=== PATIENT | male | born 1960 | race Caucasian/White ===

== ENCOUNTER 2019-08-13 00:13 | Day surgery (SDC) | payer OTHER, SELFPAY ==
[2019-08-03 12:55] VITALS: BMI 46.0
--- NOTE | 2019-08-10 07:38 | PM.HPGS ---
History of Present Illness History of Present Illness Consent: Risks, benefits, and alternatives have been discussed and questions answered. Patient agrees to proceed with procedure. Chief complaint: Stricture Vulva Urethra Narrative: Moises Elizabeth is a 58 year old male with a long history of recurrent bulbous urethral stricture recently presented with moderate obstructive voiding symptoms. He denies fever/chills, gross hematuria or recurrent UTI. Review of Systems Constitutional: Constitutional: Denies chills, Denies fatigue, Denies fever(s) and Denies headache(s) Eyes: Eyes: Denies blurry vision ENT: Denies vertigo, Denies dizziness, Denies headache(s) and Denies sore throat Cardiovascular: Cardiovascular: Denies chest pain, Denies syncope, Denies lightheadedness, Denies palpitations, Denies dyspnea and Denies dyspnea on exertion Respiratory: Respiratory: Denies hemoptysis, Denies dyspnea and Denies dyspnea on exertion Gastrointestinal: Gastrointestinal: Denies melena, Denies bloating, Denies hematochezia, Denies change in bowel habits, Denies change in stool character, Denies constipation, Denies diarrhea and Denies vomiting Genitourinary: Genitourinary: Denies hematuria, Denies dysuria, Denies testicular pain, Denies urinary frequency, Denies urinary hesitancy and Denies urinary urgency Integumentary/Breasts: Skin/Breast: Denies pruritus, Denies lesions and Denies rash Neurologic: Denies confusion, Denies vertigo, Denies dizziness, Denies syncope and Denies headache(s) Psychiatric: Psychiatric: Denies anxiety, Denies change in appetite and Denies confusion Endocrine: Endocrine: Denies fatigue and Denies palpitations Meds Home Medications and Allergies Home Medications Medication Instructions Recorded Confirmed Type allopurinol 300 mg PO DAILY 08/03/19 08/03/19 History anastrozole 1 mg PO DAILY 08/03/19 08/03/19 History aspirin 81 mg PO DAILY 08/03/19 08/03/19 History atenolol 50 mg PO DAILY 08/03/19 08/03/19 History calcium carbonate [Calcium 600] 600 mg PO DAILY 08/03/19 08/03/19 History felodipine 10 mg PO DAILY 08/03/19 08/03/19 History finasteride 1 mg PO DAILY 08/03/19 08/03/19 History fluticasone propionate 1 spray INTRANASAL DIRECTED PRN 08/03/19 08/03/19 History hydrocodone-acetaminophen 1 tablet PO Q6H PRN 08/03/19 08/03/19 History lidocaine 1 patch TRANSDERMAL DIRECTED PRN 08/03/19 08/03/19 History metronidazole 1 applic TOPICAL Q48H 08/03/19 08/03/19 History pregabalin [Lyrica] 100 mg PO TID 08/03/19 08/03/19 History simvastatin 20 mg PO DAILY 08/03/19 08/03/19 History tamsulosin 0.4 mg PO HS 08/03/19 08/03/19 History testosterone cypionate 150 mg IM WEEKLY 08/03/19 08/03/19 History Allergies Allergy/AdvReac Type Severity Reaction Status Date / Time No Known Allergies Allergy Unverified 08/03/19 12:56 Exam Const: General: healthy appearing, comfortable, no acute distress and well developed; No confusion Nutritional Appearance: well nourished Orientation/consciousness: patient oriented x3 and No confusion HENMT: Head: normocephalic and atraumatic Ears: external ears normal Face and sinus: normal facial exam Mouth: Yes lip normal Teeth and gingiva: dentition normal Eyes: General: appearance normal, both eyes and all related structures Alignment and Position: alignment normal Eyelids: eyelids normal Cornea: corneas normal Pupils: Equal, round and reactive pupils present EOM: EOMs intact bilaterally Neck: Neck: normal visual inspection, full ROM and no JVD Chest: Chest palpation & inspection: normal inspection of the chest Resp: Effort & Inspection: normal respiratory effort and no use of accessory muscles Auscultation: clear to auscultation bilaterally Cardio: Jugular venous distension: no JVD Rate: regular rate Rhythm: regular rhythm GI: Inspection: normal to inspection GI Palp: No abdominal tenderness, No Guarding due to palpation present (GI) and No Rebound tenderness pre
--- NOTE | 2019-08-13 06:49 | WPDHPUPDATE1 ---
History and Physical Update Update Date/Time: 08/13/19 06:49 History and Physical has been reviewed, including an updated exam of the patient. There are NO changes in the patient's condition. Risks, benefits, and alternatives have been discussed and questions answered. Patient agrees to proceed with procedure.
[2019-08-13 13:00] VITALS: BP 162/89; PULSE 57; RESP 20; TEMP 36.4; O2SAT 100
[2019-08-13] MEDS: LACTATED RINGERS 1,000 ML 30 ML IV CONT (13:00)
--- NOTE | 2019-08-13 13:14 | WPDANESEPPF ---
Anes - Initial Pre Proc Eval Procedure: Operation Date: 08/13/19 14:15 Proposed Procedures p Cystoscopy, Urethral Dilatation - Bill Garcia MD Date/Time: 08/13/19 13:14 Surgeon: Bill Garcia MD Pre Op Diagnosis: Stricture Vulva Urethra Patient Data Age: 58 Gender: M Height: 5 ft 11 in Weight: 149.69 kg Allergies Allergy/AdvReac Type Severity Reaction Status Date / Time No Known Allergies Allergy Unverified 08/03/19 12:56 Home Medications Medication Instructions Recorded Confirmed Type allopurinol 300 mg PO DAILY 08/03/19 08/13/19 History anastrozole 1 mg PO [id number] 08/03/19 08/13/19 History aspirin 81 mg PO DAILY 08/03/19 08/13/19 History atenolol 50 mg PO DAILY 08/03/19 08/13/19 History calcium carbonate [Calcium 600] 600 mg PO DAILY 08/03/19 08/13/19 History felodipine 10 mg PO DAILY 08/03/19 08/13/19 History finasteride 1 mg PO DAILY 08/03/19 08/13/19 History fluticasone propionate 1 spray INTRANASAL DIRECTED PRN 08/03/19 08/13/19 History hydrocodone-acetaminophen 1 tablet PO Q6H PRN 08/03/19 08/13/19 History lidocaine 1 patch TRANSDERMAL DIRECTED PRN 08/03/19 08/13/19 History metronidazole 1 applic TOPICAL Q48H 08/03/19 08/13/19 History pregabalin [Lyrica] 100 mg PO TID 08/03/19 08/13/19 History simvastatin 20 mg PO DAILY 08/03/19 08/13/19 History tamsulosin 0.4 mg PO HS 08/03/19 08/13/19 History testosterone cypionate 150 mg IM WEEKLY 08/03/19 08/13/19 History Patient hx anesthesia problems: none Family hx anesthesia problems: none PMFSH Past Medical History Medical History Hyperlipidemia Hypertension Morbid obesity Neurofibromatosis, type 1 CINDY (obstructive sleep apnea) Anes - Eval Final PreProcedure Day of Procedure 08/13/19 13:14 Patient weight: morbidly obese Heart: regular rate and rhythm Lungs: clear to auscultation Airway: Mallampati scale class II Last oral intake: >/= 8 hours ASA classification: III Emergent: no Anesthetic plan: proceed Anesthesia type and monitoring: general GIVS and standard monitoring Informed Consent: The patient's anesthetic plan and its attendant risks and benefits were discussed with the patient/family/POA. Questions were solicited and answers provided to the satisfaction of the patient/family/POA.
[2019-08-13] MEDS: ceFAZolin 3 GM/D5W 100 ML 100 ML IVPB (13:57)
[2019-08-13] MEDS: LIDOCAINE HCL 2% GEL UROJET 10 ML PKG MUCOUS MEM (14:02)
[2019-08-13 14:30] VITALS: BP 129/79; PULSE 55; RESP 16; O2SAT 99
--- NOTE | 2019-08-13 14:46 | PM.PROC ---
Procedure Note - Detailed Date of procedure: 08/13/19 Pre-op diagnosis: Stricture Vulva Urethra Post-op diagnosis: same Procedure performed: Cystoscpy with urethral dilatation Description of procedure: The patient was brought to the operative suite where he was prepped and draped in a routine sterile fashion while in a dorsal lithotomy position after the uneventful induction of a general LMA anesthetic. Cystoscopy was undertaken with a 16F flexible cystoscope. There were no urethral strictures. The prostatic urethral estimated length was 1.5cm. There was mild obstruction of the prostatic urethra with no median lobe enlargement. The bladder itself was endoscopically normal without foreign body or neoplasm. The bladder mucosa was without hyperemia. There was a single orthotopic ureteral orifice bilaterally with clear efflux of urine. Using the disposable filliforms and followers I dilated the urethra and bladder neck from 14 -> 24 F. The bladder was emptied and the patient was taken to the recovery room in good condition, dilatation urethral stricture. Anesthesia: MAC Surgeon: Bill Garcia MD Estimated blood loss (mL): 0 Drains: No Packing: No Pathology: yes Complications: No immediate complications Condition: stable Disposition: PACU
[2019-08-13 15:00] VITALS: BP 126/77; PULSE 56; RESP 20
== END 2019-08-13 15:29 | disposition home or self-care (01) ==
PROVIDERS: PCP Internal Medicine; Visit Provider Urology
PROC: 0T7D8ZZ Dilation of Urethra, Via Natural or Artificial Opening Endoscopic (ICD-10-PCS; CPT 52281; principal; 2019-08-13 14:15)
DX: N35.816 Other urethral stricture, male, overlapping sites (principal); I10 Essential (primary) hypertension; E78.5 Hyperlipidemia, unspecified; Q85.01 Neurofibromatosis, type 1; G47.33 Obstructive sleep apnea (adult) (pediatric); Z79.82 Long term (current) use of aspirin; E66.01 Morbid (severe) obesity due to excess calories; Z68.42 Body mass index [BMI] 45.0-49.9, adult
CPT/HCPCS: 52281; A9270; J0690; J2250; J2704; J3010; J7120

== ENCOUNTER 2020-04-05 00:16 | Outpatient (CLI) | payer OTHER, SELFPAY ==
[2020-04-05 19:00] LABS: SARS-CoV-2 RNA PCR Negative
== END 2020-04-05 00:17 | disposition home or self-care (01) ==
LOC: ANHCOVIDDT 00:17
PROVIDERS: PCP Internal Medicine; Visit Provider Urology
DX: Z01.812 Encounter for preprocedural laboratory examination (principal); Z20.828 Contact with and (suspected) exposure to other viral communicable diseases
CPT/HCPCS: 87635; C9803; U0003

== ENCOUNTER 2020-04-07 00:48 | Day surgery (SDC) | payer OTHER, SELFPAY ==
[2020-03-29 09:40] VITALS: BMI 50.2
[2020-04-07 06:18] VITALS: BP 138/69; PULSE 65; RESP 18; TEMP 36.4; O2SAT 97
[2020-04-07] MEDS: LACTATED RINGERS 1,000 ML 30 ML IV CONT ×2 (06:38→07:53)
--- NOTE | 2020-04-07 06:54 | WPDANESEPPF ---
Anes - Initial Pre Proc Eval Procedure: Operation Date: 04/07/20 07:30 Proposed Procedures p Cystoscopy, Urethral Dilatation, Possible Optical Internal Urethrotomy - Bill Garcia MD Date/Time: 04/07/20 06:54 Surgeon: Bill Garcia MD Pre Op Diagnosis: bulbous stricture Patient Data Age: 59 Gender: M Height: 1.8 m Weight: 162 kg Last Vital Signs Temp 36.4 C 04/07/20 06:18 Pulse 65 04/07/20 06:18 Resp 18 04/07/20 06:18 BP 138/69 04/07/20 06:18 Pulse Ox 97 04/07/20 06:18 Allergies Allergy/AdvReac Type Severity Reaction Status Date / Time No Known Allergies Allergy Verified 04/07/20 06:17 Home Medications Medication Instructions Recorded Confirmed Type allopurinol 300 mg PO DAILY 08/03/19 04/07/20 History anastrozole 1 mg PO [id number] 08/03/19 04/07/20 History aspirin 81 mg PO DAILY 08/03/19 04/07/20 History atenolol 50 mg PO DAILY 08/03/19 04/07/20 History calcium carbonate [Calcium 600] 600 mg PO DAILY 08/03/19 04/07/20 History felodipine 10 mg PO DAILY 08/03/19 04/07/20 History finasteride 1 mg PO DAILY 08/03/19 04/07/20 History fluticasone propionate 1 spray INTRANASAL DIRECTED PRN 08/03/19 03/29/20 History hydrocodone-acetaminophen 1 tablet PO Q6H PRN 08/03/19 04/07/20 History lidocaine 1 patch TRANSDERMAL DIRECTED PRN 08/03/19 03/29/20 History pregabalin [Lyrica] 200 mg PO BID 08/03/19 04/07/20 History simvastatin 20 mg PO DAILY 08/03/19 04/07/20 History tamsulosin 0.4 mg PO HS 08/03/19 04/07/20 History testosterone cypionate 150 mg IM WEEKLY 08/03/19 04/07/20 History amitriptyline 10 mg PO HS 04/07/20 04/07/20 History Patient hx anesthesia problems: none Family hx anesthesia problems: none PMFSH Past Medical History Medical History Hyperlipidemia Hypertension Morbid obesity Neurofibromatosis, type 1 CINDY (obstructive sleep apnea) Social History Social History Smoking status: Never smoker Spiritual care concerns: No Anes - Eval Final PreProcedure Day of Procedure 04/07/20 06:54 Patient weight: morbidly obese Heart: regular rate and rhythm Lungs: clear to auscultation and normal air movement Airway: Mallampati scale class III Neurological: alert and oriented Last oral intake: >/= 8 hours ASA classification: III Emergent: no Anesthetic plan: proceed Anesthesia type and monitoring: general LMA and standard monitoring Informed Consent: The patient's anesthetic plan and its attendant risks and benefits were discussed with the patient/family/POA. Questions were solicited and answers provided to the satisfaction of the patient/family/POA.
--- NOTE | 2020-04-07 06:54 | WPDHPUPDATE1 ---
History and Physical Update Update Date/Time: 04/07/20 06:54 History and Physical has been reviewed, including an updated exam of the patient. There are NO changes in the patient's condition. Risks, benefits, and alternatives have been discussed and questions answered. Patient agrees to proceed with procedure.
[2020-04-07] MEDS: ceFAZolin 3 GM/D5W 100 ML 100 ML IVPB (07:27)
[2020-04-07] MEDS: LIDOCAINE HCL 2% GEL UROJET 10 ML PKG MUCOUS MEM (07:46)
--- NOTE | 2020-04-07 07:47 | PM.PROC ---
Procedure Note - Detailed Date of procedure: 04/07/20 Pre-op diagnosis: bulbous stricture Post-op diagnosis: same Procedure performed: Optical internal urethrotomy Description of procedure: The patient was brought to the operative suite where he was prepped and draped in a routine sterile fashion while in a dorsal lithotomy position after the uneventful administration of systemic sedation by the anesthesia department. 2% Lidocaine was placed in the uretha and allowed to stand for an appropriate period of time. Cystoscopy was undertaken with a 19F rigid cystoscope. He has a moderately constricting stricture of the [fossa navicularis/penile urethra/bulbous urethra/bladder neck]. The bladder itself was endoscopically normal without foreign body or neoplasm. The bladder mucosa was without hyperemia. There was a single orthotopic ureteral orifice bilaterally with clear reflex of urine. Using the optical urethratome, I incised the strictured urethra at the 12 o'clock position care taken to avoid injury to the membranous urethra. An 18F Ruiz catheter was placed, the bladder was emptied and the patient was taken to the recovery room in good condition. Anesthesia: GLMA Surgeon: Bill Garcia MD Estimated blood loss (mL): 0 Drains: Yes (18F Ruiz) Packing: No Pathology: none sent Complications: No immediate complications Condition: stable Disposition: PACU
[2020-04-07 07:53] VITALS: BP 139/81; PULSE 56; RESP 15; TEMP 36.3; O2SAT 93
[2020-04-07 08:09] VITALS: BP 133/83; PULSE 55; RESP 20; O2SAT 97
[2020-04-07 08:20] VITALS: BP 144/80; PULSE 61; RESP 18; O2SAT 93
--- NOTE | 2020-04-07 08:20 | SUR.PHASEI ---
REPORT GIVEN TO LORENZA DOMINGUZE RN
[2020-04-07 08:27] VITALS: BP 135/77; PULSE 57; RESP 18
[2020-04-07 08:55] VITALS: BP 131/84; PULSE 52; RESP 18
== END 2020-04-07 09:15 | disposition home or self-care (01) ==
PROVIDERS: PCP Internal Medicine; Visit Provider Urology
PROC: 0T7D8ZZ Dilation of Urethra, Via Natural or Artificial Opening Endoscopic (ICD-10-PCS; CPT 52281; principal; 2020-04-07 07:30)
DX: N35.912 Unspecified bulbous urethral stricture, male (principal); I10 Essential (primary) hypertension; E78.5 Hyperlipidemia, unspecified; G47.33 Obstructive sleep apnea (adult) (pediatric); Q85.01 Neurofibromatosis, type 1; Z79.82 Long term (current) use of aspirin; E66.01 Morbid (severe) obesity due to excess calories; Z68.42 Body mass index [BMI] 45.0-49.9, adult
CPT/HCPCS: 52276; A9270; J0690; J1100; J2250; J2405; J2704; J7120

== ENCOUNTER → 2022-02-21 07:52 | Outpatient (CLI) | payer OTHER, SELFPAY ==
--- NOTE | ~2022-02-21 | XR_ITS ---
XR knee LT 2V DATE: 02/21/2022 08:39 INDICATION: Left knee pain TECHNIQUE: Standing AP and lateral views COMPARISON: None FINDINGS: There is severe joint space narrowing and some periarticular spurring of the medial compart ment. There is joint space narrowing and severe hypertrophic spurring at the patellofemoral joint. Mild periarticular spurring at the lateral compartment. There is enthesopathy of the patella at the insertions of the quadriceps and patellar tendons. No fracture or dislocation or significant joint effusion is evident. No radiopaque intra-articular lo ose body or, calcinosis. No periosteal reaction or bone destruction. 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 IMPRESSION: Tricompartment osteoarthritis, severe at the patellofemoral and med ial compartments
--- NOTE | ~2022-02-21 | XR_ITS ---
XR knee RT 2V DATE: 02/21/2022 08:39 INDICATION: Right knee pain TECHNIQUE: Standing AP and lateral views COMPARISON: None FINDINGS: There is prominent enthesopathy of the superior pole of patella at the quadriceps tendon in sertion. There is severe joint space narrowing in particular spurring at the medial compartment, mild periarti cular spurring at the lateral compartment and prominent joint space narrowing and hypertrophic spurri ng at the patellofemoral compartment. No fracture or dislocation or joint effusion, periosteal reaction or bone destruction. No radiopaque intra-articular loose body or chondrocalcinosis. IMPRESSION: Tricompartment osteoarthritis, particularly severe at the medial and patellofemoral radha rtments Reviewed, dictated and finalized at location B. IMPRESSION: Tricompartment osteoarthritis, particularly severe at the medial an d patellofemoral compartments
== END ==
PROVIDERS: PCP Internal Medicine; Visit Provider Nurse Practitioner Family
DX: M17.0 Bilateral primary osteoarthritis of knee (principal)
CPT/HCPCS: 73560

== ENCOUNTER → 2023-02-13 07:21 | Outpatient (CLI) | payer OTHER, SELFPAY ==
--- NOTE | ~2023-02-13 | MR_ITS ---
EXAMINATION: MR brain/brain stem wo con DATE: 02/13/2023 07:55 INDICATION: Ataxia. TECHNIQUE: Magnetic resonance imaging (MRI) of the brain and brainstem was performed without intraven ous contrast. COMPARISON: None. FINDINGS: There is no intracranial hemorrhage, acute infarction, or abnormal intracranial mass lesion . The ventricles are normal in size. The orbits are normal. The paranasal sinuses are clear. The mast oid air cells are normal. IMPRESSION: 1. Normal brain. Reviewed, dictated and finalized at location A. IMPRESSION: 1. Normal brain.
== END ==
PROVIDERS: PCP Internal Medicine; Visit Provider Chiropractor
DX: R26.0 Ataxic gait (principal)
CPT/HCPCS: 70551

== ENCOUNTER 2023-05-15 15:02 | Outpatient (CLI) | payer OTHER, SELFPAY ==
--- NOTE | 2023-05-15 15:13 | ECG_ITS ---
Measurements Intervals [place] Rate: 56 P: 15 DC: 143 QRS: -4 QRSD: 109 T: 35 QT: 414 QTc: 402 Interpretive Statements SINUS BRADYCARDIA DELAYED PRECORDIAL R/S TRANSITION CONSIDER INFERIOR INFARCT, AGE INDETERMINATE ABNORMAL ECG NO PREVIOUS ECG AVAILABLE FOR COMPARISON Electronically Signed On 05-15-2023 20:07:41 [employer] by Zeus Cantor D.O.
== END 2023-05-15 15:03 | disposition home or self-care (01) ==
LOC: ANHSURGERY 15:08
PROVIDERS: PCP Internal Medicine; Visit Provider Urology
DX: I10 Essential (primary) hypertension (principal); Z01.818 Encounter for other preprocedural examination; R94.31 Abnormal electrocardiogram [ECG] [EKG]
CPT/HCPCS: 93005

== ENCOUNTER 2023-05-23 01:47 | Day surgery (SDC) | payer OTHER, SELFPAY ==
[2023-05-14 09:38] VITALS: BMI 44.6
--- NOTE | 2023-05-14 09:43 | PC.NURSE ---
Report to the Outpatient Waiting Room, entrance under the green pavilion located off [facility], at time 6:00 on date 05/23/23. Planned Procedure Time: 7:30. Time changes happen often and if your time is changed the preop area will call you the afternoon before. - You and your visitor will be asked to self-screen and do not enter if you have any COVID symptoms. - A mask is optional within the hospital at this time. Patients may have clear liquids (water, carbonated beverages, clear teas, apple juice) until 3 hours prior to surgery (4:30) with a maximum of 20 ounces. - No food from midnight until time of surgery Take the following medications with a SIP of water the morning of surgery: ATENOLOL, FELODIPINE, PREGABALIN, PAIN PILL/PATCH NEEDED DO NOT STOP ANY OF YOUR OTHER PRESCRIPTION MEDICATIONS PRIOR TO SURGERY ?EXCEPT THE FOLLOWING Medications to discontinue per physician: VITAMINS Date to take last dose: 05/19/[address] HOLT REGARDING STOPPING ASPIRIN Please no make-up, nail colombian, hairspray, perfume, deodorant, or body powder the day of surgery. No jewelry (including any body piercings) or valuables the day of surgery, leave them at home. Please take a shower or bath the night before, or the morning of, surgery with an antibacterial soap. Wear comfortable, loose fitting clothing. - Jewelry must be removed prior to entering the operating room. Rings and piercings that are not removed may be cut off. - The hospital will not accept responsibility for valuables. - Please leave all valuables, including medications, at home the day of surgery. If you are going home after surgery, a licensed [employer] driver must drive you home. - NO public transportation without another adult if you receive anesthesia. - We recommend that an adult stay with you for 24 hours following discharge. - We also recommend that you do not drive, make important decision, drink alcoholic beverages, or take any drugs that were not prescribed by your health care provider for at least 24 hours after your discharge time. Follow any additional instructions given to you from your surgeon. If you or anyone in your household have experienced Covid symptoms in the past week, please notify your surgeon or the nurse liaison at the phone number below for possible testing. Telephone instructions given to PT - LISANDRA CA and asked if any additional questions and then verbalized understanding. Patient advised to call surgeon office or pre surgery nurse liaison [phone] if any additional questions.
--- NOTE | 2023-05-21 07:29 | PM.HPGS ---
History of Present Illness History of Present Illness Consent: Risks, benefits, and alternatives have been discussed and questions answered. Patient agrees to proceed with procedure. Chief complaint: Urethral Stricture Narrative: Moises Elizabeth is a 62 year old male Who is very well known to me with a history of recurrent bulbous urethral stricture. It has been sometime since his last intervention but recently developed recurrent obstructive voiding symptoms. After discussion of options he elected to proceed directly to cystoscopy with urethral dilatation we have discussed alternative treatments including urethroplasty and a Urolume balloon dilatation. He is aware the risk of this procedure including, but not limited to, hematuria, recurrent stricture. Review of Systems Cardiovascular: Cardiovascular: Denies chest pain, Denies lightheadedness, Denies palpitations and Denies dyspnea Respiratory: Respiratory: Denies dyspnea Gastrointestinal: Gastrointestinal: Denies diarrhea, Denies nausea and Denies vomiting Genitourinary: Genitourinary: Denies hematuria and Denies dysuria Endocrine: Endocrine: Denies palpitations PMFSH Past Medical History Medical History Hyperlipidemia Hypertension Morbid obesity Neurofibromatosis, type 1 CINDY (obstructive sleep apnea) Social History Social History Smoking status: Never smoker Alcohol intake: never Substance use: never Substance use type: does not use Living arrangements: with family Spiritual care concerns: No Meds Home Medications and Allergies Home Medications Medication Instructions Recorded Confirmed Type allopurinol 300 mg tablet 300 mg PO DAILY 08/03/19 05/14/23 History aspirin 81 mg tablet,delayed 81 mg PO DAILY 08/03/19 05/14/23 History release atenolol 50 mg tablet 50 mg PO DAILY 08/03/19 05/14/23 History calcium carbonate 600 mg calcium 600 mg PO DAILY 08/03/19 05/14/23 History (1,500 mg) tablet (Calcium) felodipine 10 mg tablet,extended 10 mg PO DAILY 08/03/19 05/14/23 History release 24 hr finasteride 1 mg tablet 1 mg PO DAILY 08/03/19 05/14/23 History fluticasone propionate 50 1 spray intranasal DIRECTED PRN 08/03/19 05/14/23 History mcg/actuation nasal Allergy Symptoms spray,suspension lidocaine 5 % topical patch 1 patch transdermal DIRECTED 08/03/19 05/14/23 History PRN Pain pregabalin 100 mg capsule (Lyrica) 200 mg PO BID 08/03/19 05/14/23 History simvastatin 20 mg tablet 20 mg PO DAILY 08/03/19 05/14/23 History tamsulosin 0.4 mg capsule 0.4 mg PO HS 08/03/19 05/14/23 History naldemedine 0.2 mg tablet 0.2 mg PO HS 05/14/23 05/14/23 History (Symproic) oxycodone 5 mg tablet 5 mg PO DAILY PRN Pain 05/14/23 05/14/23 History oxycodone myristate 13.5 mg 13.5 mg PO BID 05/14/23 05/14/23 History capsule sprinkle extend release 12hr(DON'T CRUSH) (Xtampza ER) Allergies Allergy/AdvReac Type Severity Reaction Status Date / Time No Known Allergies Allergy Verified 05/14/23 09:35
[2023-05-23] VITALS (9 sets, daily range): BP systolic 97–143; BP diastolic 57–72; PULSE 51–70; RESP 13–20; TEMP 36.5–36.7; O2SAT 91–100; BMI 44.5
--- NOTE | 2023-05-23 06:29 | WPDHPUPDATE1 ---
History and Physical Update Update Date/Time: 05/23/23 06:29 History and Physical has been reviewed, including an updated exam of the patient. There are NO changes in the patient's condition. Risks, benefits, and alternatives have been discussed and questions answered. Patient agrees to proceed with procedure.
--- NOTE | 2023-05-23 07:10 | WPDANESEPPF ---
Anes - Initial Pre Proc Eval Procedure: Operation Date: 05/23/23 07:30 Proposed Procedures p Cystoscopy, Urethral Dilatation - Bill Garcia MD Date/Time: 05/23/23 07:10 Surgeon: Bill Garcia MD Pre Op Diagnosis: Urethral Stricture Patient Data Age: 62 Gender: M Height: 1.8 m Weight: 144.9 kg Last Vital Signs Temp 36.5 C 05/23/23 06:10 Pulse 56 L 05/23/23 06:10 Resp 16 05/23/23 06:10 BP 143/72 H 05/23/23 06:10 Pulse Ox 98 05/23/23 06:10 O2 Del Method Room Air 05/23/23 06:10 Allergies Allergy/AdvReac Type Severity Reaction Status Date / Time No Known Allergies Allergy Verified 05/23/23 06:30 Home Medications Medication Instructions Recorded Confirmed Type allopurinol 300 mg tablet 300 mg PO DAILY 08/03/19 05/14/23 History aspirin 81 mg tablet,delayed 81 mg PO DAILY 08/03/19 05/23/23 History release atenolol 50 mg tablet 50 mg PO DAILY 08/03/19 05/23/23 History calcium carbonate 600 mg calcium 600 mg PO DAILY 08/03/19 05/23/23 History (1,500 mg) tablet (Calcium) felodipine 10 mg tablet,extended 10 mg PO DAILY 08/03/19 05/14/23 History release 24 hr finasteride 1 mg tablet 1 mg PO DAILY 08/03/19 05/14/23 History fluticasone propionate 50 1 spray intranasal DIRECTED PRN 08/03/19 05/14/23 History mcg/actuation nasal Allergy Symptoms spray,suspension lidocaine 5 % topical patch 1 patch transdermal DIRECTED 08/03/19 05/14/23 History PRN Pain pregabalin 100 mg capsule (Lyrica) 200 mg PO BID 08/03/19 05/23/23 History simvastatin 20 mg tablet 20 mg PO DAILY 08/03/19 05/14/23 History tamsulosin 0.4 mg capsule 0.4 mg PO HS 08/03/19 05/14/23 History naldemedine 0.2 mg tablet 0.2 mg PO HS 05/14/23 05/14/23 History (Symproic) oxycodone 5 mg tablet 5 mg PO DAILY PRN Pain 05/14/23 05/14/23 History oxycodone myristate 13.5 mg 13.5 mg PO BID 05/14/23 05/23/23 History capsule sprinkle extend release 12hr(DON'T CRUSH) (Xtampza ER) Patient hx anesthesia problems: none Family hx anesthesia problems: none Results Review: All pre-operative results and documents have been reviewed as part of the pre-operative evaluation. ON LICENSE OF [facility] Past Medical History Medical History Hyperlipidemia Hypertension Morbid obesity Neurofibromatosis, type 1 CINDY (obstructive sleep apnea) Social History Social History Smoking status: Never smoker Alcohol intake: never Substance use: never Substance use type: does not use Living arrangements: with family Spiritual care concerns: No Anes - Eval Final PreProcedure Day of Procedure 05/23/23 07:10 Patient weight: morbidly obese Heart: regular rate and rhythm Lungs: clear to auscultation Airway: Mallampati scale class II Neurological: alert and oriented Last oral intake: >/= 8 hours ASA classification: III Emergent: no Anesthetic plan: proceed Anesthesia type and monitoring: general LMA and standard monitoring Results Review: All pre-operative results and documents have been reviewed as part of the pre-operative evaluation. Informed Consent: The patient's anesthetic plan and its attendant risks and benefits were discussed with the patient/family/POA. Questions were solicited and answers provided to the satisfaction of the patient/family/POA.
[2023-05-23] MEDS: LACTATED RINGERS 1,000 ML 30 ML IV CONT (07:15)
[2023-05-23] MEDS: ceFAZolin 3 GM/D5W 100 ML 100 ML IVPB (07:35)
[2023-05-23] MEDS: LIDOCAINE HCL 2% GEL UROJET 10 ML PKG MUCOUS MEM (07:36)
--- NOTE | 2023-05-23 07:42 | W.PM.PROC2 ---
Procedure Note - Detailed Date of Procedure 05/23/23 Pre-op Diagnosis Urethral Stricture Post-op Diagnosis Same Procedure Performed Cystoscopy, urethral dilatation Surgeon Bill Garcia MD Anesthesia MAC Description of Procedure The patient was brought to the operative suite where he was prepped and draped in a routine sterile fashion while in a dorsal lithotomy position after the uneventful induction of a general LMA anesthetic. Cystoscopy was undertaken with a 16F flexible cystoscope. There was a moderately constricting bulbous urethral stricture. The prostatic urethral estimated length was 1.5cm. There was mild obstruction of the prostatic urethra with no median lobe enlargement. The bladder itself was endoscopically normal without foreign body or neoplasm. The bladder mucosa was without hyperemia. There was a single orthotopic ureteral orifice bilaterally with clear efflux of urine. Using the Brigido sounds I dilated the urethra and bladder neck from 16->26 F. The bladder was emptied and the patient was taken to the recovery room in good condition Drains Yes
== END 2023-05-23 09:41 | disposition home or self-care (01) ==
PROVIDERS: PCP Internal Medicine; Visit Provider Urology
PROC: 0T7D8ZZ Dilation of Urethra, Via Natural or Artificial Opening Endoscopic (ICD-10-PCS; CPT 52281; principal; 2023-05-23 07:30)
DX: N35.912 Unspecified bulbous urethral stricture, male (principal); I10 Essential (primary) hypertension; E78.5 Hyperlipidemia, unspecified; G47.33 Obstructive sleep apnea (adult) (pediatric); Q85.01 Neurofibromatosis, type 1; E66.01 Morbid (severe) obesity due to excess calories; Z68.41 Body mass index [BMI] 40.0-44.9, adult; Z79.85 Long-term (current) use of injectable non-insulin antidiabetic drugs; Z79.891 Long term (current) use of opiate analgesic; Z79.82 Long term (current) use of aspirin
CPT/HCPCS: 52281; 93005; J0690; J1100; J2405; J2704; J3010; J7120

== ENCOUNTER 2023-12-11 06:58 | Outpatient (CLI) | payer OTHER, SELFPAY ==
--- NOTE | ~2023-12-11 | MR_ITS ---
EXAMINATION: MR knee LT wo con DATE: 12/11/2023 07:31 INDICATION: Left knee pain. TECHNIQUE: Magnetic resonance imaging (MRI) of the left knee was performed without intravenous contra st. Sequences included axial PD-weighted FS FSE, coronal PD-weighted FSE and PD-weighted FS FSE, sagi ttal PD-weighted FSE, and sagittal T2-weighted FS FSE. COMPARISON: Left knee radiographs 02/21/2022 FINDINGS: Medial compartment: There is maceration of medial meniscus. There are large areas of full-thickness cartilage loss of fem oral condyle and tibial condyle with cortical remodeling, osteophytes, and tibial subchondral cysts. Lateral compartment: Lateral meniscus is normal. There is full-thickness cartilage loss of tibial condyle and femoral cond yle involving the medial articular surfaces. There is deep partial thickness cartilage loss of femora l condyle involving the central and posterior articular surfaces. Osteophytes are noted. Patellofemoral compartment: There is deep partial-thickness cartilage loss of patellar lateral facet with mild subchondral edema- like marrow signal intensity. There is extensive deep partial-thickness cartilage loss of trochlea. O steophytes are noted. Ligaments and tendons: Anterior cruciate ligament is enlarged and indistinct with increased signal intensity. There is thick ening and increased signal involving posterior cruciate ligament. There are changes of prior sprains of medial collateral ligament and fibular collateral ligament characterized by increased signal inten sity proximally. There is moderate patellar tendinopathy. Fluid: There is a small knee joint effusion. There is trace fluid in a Lundberg's cyst. IMPRESSION: 1. 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 2. Tear of medial meniscus. 3. Enlarged and indistinct anterior cruciate ligament, consistent with mucoid degeneration versus tea r. 4. Thickening and increased signal involving posterior cruciate ligament, consistent with mucoid dege neration versus partial tear. 5. Small knee joint effusion. Reviewed, dictated and finalized at location A. IMPRESSION: 1. 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 2. Tear of medial meniscus. 3. Enlarged and indistinct anterior cruciate ligament, consistent with mucoid d egeneration versus tear. 4. Thickening and increased signal involving posterior cruciate ligament, consi stent with mucoid degeneration versus partial tear. 5. Small knee joint effusion.
== END 2023-12-11 06:59 ==
LOC: MICIMG 06:59
PROVIDERS: PCP Internal Medicine; Visit Provider Nurse Practitioner Family
DX: S83.242D Other tear of medial meniscus, current injury, left knee, subsequent encounter (principal); X58.XXXD Exposure to other specified factors, subsequent encounter; M25.462 Effusion, left knee
CPT/HCPCS: 73721

== ENCOUNTER 2024-02-20 02:08 | Day surgery (SDC) | payer OTHER, SELFPAY ==
[2024-02-18 10:47] VITALS: BMI 43.0
--- NOTE | 2024-02-18 10:57 | PC.NURSE ---
Addendum entered by Evangelina Higgins RN 02/19/24 08:19: Pt informed that to take felodipine and pain medication (if needed) morning of surgery with a small sip of water. Original Note: Report to the Outpatient Waiting Room, entrance under the green pavilion located off [facility], at time __0600_ on date _02/20/24_. Planned Procedure Time: _0730_.? Time changes happen often and if your time is changed the preop area will call you the afternoon before. - You and your visitor will be asked to self-screen and do not enter if you have any COVID symptoms. Please call surgeon if you need to reschedule. - A mask is optional within the hospital at this time. Patients may have clear liquids (water, carbonated beverages, clear teas, apple juice) until 3 hours prior to surgery with a maximum of 20 ounces. - No food from midnight until time of surgery and no smoking - Infants may have breast milk until 4 hours before surgery, infant formula 6 hours prior to surgery. - Children will be allowed to drink immediately following surgery.? If applicable, please bring a bottle or sippy cup to assist with drinking. Juice, water, soda, and popsicles are readily available.? For infants on formula, please bring formula the day of surgery.? Pacifiers are allowed. Take only the following medications with a SIP of water on the morning of surgery: __atenolol, pain pill if neeed DO NOT STOP ANY OF YOUR OTHER PRESCRIPTION MEDICATIONS PRIOR TO SURGERY EXCEPT THE FOLLOWING Medications to discontinue per physician ____aspirin 02/14/24, calcuim and multivitamin 02/18/24 Date to take last dose Please no make-up, nail belarusian, hairspray, perfume, deodorant, or body powder the day of surgery.? No jewelry (including any body piercings) or valuables the day of surgery, leave them at home.? Please take a shower or bath the night before, or the morning of, surgery with an antibacterial soap.? Wear comfortable, loose fitting clothing.? Children are encouraged to wear pajamas. - Jewelry must be removed prior to entering the operating room.? Rings and piercings that are not removed may be cut off. - The hospital will not accept responsibility for valuables.? - Please leave all valuables, including medications, at home the day of surgery. If you are going home after surgery, a licensed armored truck driver must drive you home.? - NO public transportation without another adult if you receive anesthesia. - We recommend that an adult stay with you for 24 hours following discharge. - We also recommend that you do not drive, make important decision, drink alcoholic beverages, or take any drugs that were not prescribed by your health care provider for at least 24 hours after your discharge time. For Pediatric surgeries, we recommend two adults accompany the child home. Follow any additional instructions given to you from your surgeon. Telephone instructions given to__PATIENT_and asked if any additional questions and then verbalized understanding. Patient advised to call surgeon office or pre surgery nurse liaison [phone] if any additional questions.
[2024-02-20] VITALS (9 sets, daily range): BP systolic 111–145; BP diastolic 65–88; PULSE 53–68; RESP 14–16; TEMP 36.4–36.5; O2SAT 94–100
[2024-02-20] MEDS: LACTATED RINGERS 1,000 ML 30 ML IV CONT (06:30)
--- NOTE | 2024-02-20 06:32 | WPDANESEPPF ---
Anes - Initial Pre Proc Eval Procedure: Operation Date: 02/20/24 07:30 Proposed Procedures p Prostate Ultrasound Biopsy with Cystoscopy, Urethral Dilatation - Bill Garcia MD Date/Time: 02/20/24 06:32 Surgeon: Bill Garcia MD Pre Op Diagnosis: elevated psa Patient Data Age: 63 Gender: M Height: 1.78 m Weight: 136 kg Allergies Allergy/AdvReac Type Severity Reaction Status Date / Time No Known Allergies Allergy Verified 02/18/24 10:44 Home Medications Medication Instructions Recorded Confirmed Type allopurinol 300 mg tablet 300 mg PO DAILY 08/03/19 02/18/24 History aspirin 81 mg tablet,delayed 81 mg PO DAILY 08/03/19 02/18/24 History release atenolol 50 mg tablet 50 mg PO DAILY 08/03/19 02/18/24 History calcium carbonate (Calcium 600) 600 mg PO DAILY 08/03/19 02/18/24 History felodipine 10 mg tablet,extended 10 mg PO DAILY 08/03/19 02/18/24 History release 24 hr finasteride 1 mg tablet 1 mg PO DAILY 08/03/19 02/18/24 History lidocaine 5 % topical patch 1 patch transdermal DIRECTED 08/03/19 02/18/24 History PRN Pain pregabalin 100 mg capsule (Lyrica) 200 mg PO BID 08/03/19 02/18/24 History simvastatin 20 mg tablet 20 mg PO DAILY 08/03/19 02/18/24 History tamsulosin 0.4 mg capsule 0.4 mg PO HS 08/03/19 02/18/24 History naldemedine 0.2 mg tablet 0.2 mg PO HS 05/14/23 02/18/24 History (Symproic) oxycodone 5 mg tablet 5 mg PO DAILY PRN Pain 05/14/23 02/18/24 History oxycodone myristate 13.5 mg 13.5 mg PO BID 05/14/23 02/18/24 History capsule sprinkle extend release 12hr(DON'T CRUSH) (Xtampza ER) multivitamin with minerals-folic 1 tablet PO DAILY 02/18/24 02/18/24 History acid 0.4 mg tablet semaglutide 1 mg/dose (4 mg/3 mL) 1 mg subcut WEEKLY 02/18/24 02/18/24 History subcutaneous pen injector (Ozempic) Patient hx anesthesia problems: none Family hx anesthesia problems: none Results Review: All pre-operative results and documents have been reviewed as part of the pre-operative evaluation. [facility] Past Medical History Medical History (Updated 02/20/24 @ 06:33 by Gurpreet Quiroz DO) Chronic, continuous use of opioids Hyperlipidemia Hypertension Morbid obesity Neurofibromatosis, type 1 CINDY (obstructive sleep apnea) Social History Social History Smoking status: Never smoker Alcohol intake: never Substance use: never Substance use type: does not use Living arrangements: with family Spiritual care concerns: No Anes - Eval Final PreProcedure Day of Procedure 02/20/24 06:32 Patient weight: morbidly obese Heart: regular rate and rhythm Lungs: clear to auscultation Airway: Mallampati scale class II Neurological: alert and oriented Last oral intake: >/= 8 hours ASA classification: III Emergent: no Anesthetic plan: proceed Anesthesia type and monitoring: general LMA and standard monitoring Results Review: All pre-operative results and documents have been reviewed as part of the pre-operative evaluation. Informed Consent: The patient's anesthetic plan and its attendant risks and benefits were discussed with the patient/family/POA. Questions were solicited and answers provided to the satisfaction of the patient/family/POA.
[2024-02-20 07:01] LABS: Glucose Point of Care 89 mg/dl (65-105)
--- NOTE | 2024-02-20 07:36 | WPDHPUPDATE1 ---
History and Physical Update Update Date/Time: 02/20/24 07:36 History and Physical has been reviewed, including an updated exam of the patient. There are NO changes in the patient's condition. Risks, benefits, and alternatives have been discussed and questions answered. Patient agrees to proceed with procedure.
[2024-02-20] MEDS: ceFAZolin 3 GM/D5W 100 ML 100 ML IVPB (07:39)
[2024-02-20 08:33] LABS: Glucose Point of Care 85 mg/dl (65-105)
--- NOTE | 2024-02-20 08:36 | P.OP_ITS ---
Procedure Note - Detailed Date of Procedure 02/20/24 Pre-op Diagnosis Elevated PSA, bulbous urethral stricture Post-op Diagnosis Same Procedure Performed Cystoscopy, urethral dilatation, transrectal ultrasound ultrasound-guided biopsy of the prostate Surgeon Bill Garcia MD Anesthesia General Findings Moderately constricted bulbous urethral stricture Prostate volume: 17.3 g Description of Procedure Patient brought the operative suite was prepped draped in routine sterile fashion while in dorsal lithotomy position after the uneventful induction of a general LMA anesthetic. Cystoscopy was undertaken with a 16F flexible cystoscope. He is found to have moderately constricting bulbous urethral stricture, as in the past. I dilated this with urethral dilators over a 0.035 in guidewire. Dilatation was undertaken from 12 F to 24 F. I repeated cystos copy to ensure no significant urethral injury. The bladder was endoscopically normal without foreign body or neoplasm. The patient was then repositioned in the left lateral position. Transrectal ult rasonography was undertaken with transrectal probe. Prostate volume is measured at 17.3 g. A standard sextant 12 core biopsy was obtained. Patient tolerated these procedures well and was taken recovery room good condition. Drains No Packing No Pathology Yes Complications No immediate complications
[2024-02-20] MEDS: LIDOCAINE HCL 2% GEL UROJET 10 ML PKG MUCOUS MEM (08:49)
== END 2024-02-20 10:23 | disposition home or self-care (01) ==
PROVIDERS: PCP Internal Medicine; Visit Provider Urology
PROC: 0T7D8ZZ Dilation of Urethra, Via Natural or Artificial Opening Endoscopic (ICD-10-PCS; CPT 52281; principal; 2024-02-20 07:30)
DX: C61 Malignant neoplasm of prostate (principal); N35.912 Unspecified bulbous urethral stricture, male; I10 Essential (primary) hypertension; E78.5 Hyperlipidemia, unspecified; G47.33 Obstructive sleep apnea (adult) (pediatric); Q85.01 Neurofibromatosis, type 1; E66.01 Morbid (severe) obesity due to excess calories; Z68.41 Body mass index [BMI] 40.0-44.9, adult; Z79.82 Long term (current) use of aspirin; Z79.85 Long-term (current) use of injectable non-insulin antidiabetic drugs; Z79.891 Long term (current) use of opiate analgesic
CPT/HCPCS: 52281; 76872; 55700; 82948; C1769; G0416; J0690; J1100; J2405; J2704; J7120

== ENCOUNTER 2024-03-06 07:39 | Outpatient (CLI) | payer OTHER, SELFPAY ==
--- NOTE | ~2024-03-06 | NM_ITS ---
EXAMINATION: NM bone scan whole body DATE: 03/06/2024 10:59 INDICATION: Prostate cancer TECHNIQUE: 26.8 mCi Tc-99m HDP was administered intravenously. Delayed whole-body scintigrams were o btained. COMPARISON: CT dated 03/06/2024 FINDINGS: There is degenerative joint centered uptake at the bilateral knees with medial compartment predominan ce, at the bilateral hands and feet and at the bilateral acromioclavicular and sternoclavicular artic ulations. Very subtle focus of minimal uptake at the site of the mixed lytic and sclerotic lesion at the medial intertrochanteric right femur. No other foci of abnormal bone uptake to suggest metastatic disease. IMPRESSION: 1. Minimal uptake associated with the lytic and sclerotic lesion at the intratrochanteric right femur which is less than would be expected for metastatic prostate cancer and favors a benign etiology suc h as bone infarct, enchondroma or liposclerosing myxofibrous tumor. No other lesions suspicious for m etastatic disease. Reviewed, dictated and finalized at location B. IMPRESSION: 1. Minimal uptake associated with the lytic and sclerotic lesion at the intratr ochanteric right femur which is less than would be expected for metastatic pros pimentel cancer and favors a benign etiology such as bone infarct, enchondroma or l iposclerosing myxofibrous tumor. No other lesions suspicious for metastatic dis ease.
--- NOTE | ~2024-03-06 | CT_ITS ---
EXAMINATION: CT abdomen pelvis w con DATE: 03/06/2024 08:02 INDICATION: Prostate cancer TECHNIQUE: Computed tomography (CT) of the abdomen and pelvis was performed with 100 mL Omnipaque-350 intravenous contrast. Automated exposure control and iterative reconstruction technique were employe d. The dose-length product was 1570.63 mGy-cm. COMPARISON: None FINDINGS: Lung bases are clear. Heart size is normal. No pericardial or pleural effusion. Liver, gallbladder, s pleen, bilateral adrenal glands and right kidney are normal. 12 mm soft tissue density exophytic lesi on at the lower pole of the left kidney. A few scattered pancreatic calcifications consistent with ol d granulomatous disease. Bowels including the appendix are normal. There is mild fatty infiltration o f the bladder wall unchanged likely prostatectomy. No free intraperitoneal gas or fluid. Small bilate ral fat-containing inguinal hernias, right greater than left. There are mildly enlarged bilateral ext ernal and common iliac chain lymph nodes measuring 1.3 cm short axis diameter both the left and right common iliac chains, 1.1 cm in short axis stent are on the left common iliac chain and 1.2 cm along the right common iliac chain. Moderate lumbar moderate lumbar spondylosis. Mixed lytic and peripheral ly sclerotic lesion at the intratrochanteric right femur. There are few small sclerotic bone islands at the proximal left femur a few which demonstrate typical elongation aligned along the trabecular ax is. IMPRESSION: 1. Mild bilateral external and common iliac lymphadenopathy which could be reactive or metastatic. Co rrelate with PSA level and could consider further evaluation with PSMA PET CT as clinically indicated . 2. Indeterminate 12 mm exophytic lesion at the left kidney which could represent renal cell carcinoma or proteinaceous/hemorrhagic cyst. Consider pre and postcontrast MRI or CT for further evaluation. 3. 1.7 cm mixed lytic and sclerotic lesion at the intratrochanteric right femur for which differentia l would include metastatic disease, enchondroma, bone infarct or liposclerosing myxofibrous tumor. Co rrelate with the planned bone scan and if clinically indicated this could also be further evaluated w ith PSMA neck PET CT. Reviewed, dictated and finalized at location B. IMPRESSION: 1. Mild bilateral external and common iliac lymphadenopathy which could be reac tive or metastatic. Correlate with PSA level and could consider further evaluat ion with PSMA PET CT as clinically indicated. 2. Indeterminate 12 mm exophytic lesion at the left kidney which could represen t renal cell carcinoma or proteinaceous/hemorrhagic cyst. Consider pre and post contrast MRI or CT for further evaluation. 3. 1.7 cm mixed lytic and sclerotic lesion at the intratrochanteric right femur for which differential would include metastatic disease, enchondroma, bone inf arct or liposclerosing myxofibrous tumor. Correlate with the planned bone scan and if clinically indicated this could also be further evaluated with PSMA neck PET CT.
[2024-03-06 07:58] LABS: Estimated Glomerular Filt Rate > 60
== END 2024-03-06 07:40 | disposition home or self-care (01) ==
PROVIDERS: PCP Internal Medicine; Visit Provider Urology
DX: C61 Malignant neoplasm of prostate (principal); R59.1 Generalized enlarged lymph nodes
CPT/HCPCS: 74177; 78306; A9503; Q9967

== ENCOUNTER 2024-03-20 08:27 | Outpatient (CLI) | payer OTHER, SELFPAY ==
--- NOTE | ~2024-03-20 | PE_ITS ---
EXAMINATION: PET_PETPSMAST_PT DATE: 03/20/2024 10:41 INDICATION: Prostate cancer. TECHNIQUE: 5.938 mCi of Ga-68 gozetotide was administered intravenously. Low dose computed tomography (CT) images were acquired from the base of the brain to the proximal thighs for attenuation correcti on and anatomic localization. Automated exposure control was employed. Dose-length product (DLP) was 1336 mGy-cm. Positron emission tomography (PET) images were acquired in the same distribution. COMPARISON: Bone scan 03/06/2024, CT abdomen and pelvis 03/06/2024 FINDINGS: Head/neck: There are no pathologically enlarged lymph nodes. Chest: The lungs demonstrate mild atelectasis. There is a 4 mm nodule in right middle lobe, likely be nign. No pleural effusion. The heart size is normal. No pericardial effusion. There is a left shoulde r arthroplasty. Abdomen/pelvis/proximal thighs: The liver, gallbladder, spleen, pancreas, adrenal glands, and right k idney are normal. There is a 11 mm mass in left kidney. There is diverticulosis of the colon without evidence of diverticulitis. The appendix is normal. There are no dilated loops of bowel. There is mil d right common iliac and bilateral external iliac lymphadenopathy without increased activity. There i s a right inguinal hernia containing fat. The prostate is normal in size. There is increased activity in the prostate on the right with maximum SUV of 11.1. There is no osseous malignancy. IMPRESSION: 1. Increased activity in the prostate on the right, consistent with primary malignancy. No evidence o f metastatic disease. 2. Mild pelvic lymphadenopathy without increased activity, likely reactive. 3. 11 mm left kidney mass, which may be a hemorrhagic cyst or less likely renal cell carcinoma. Abdom en CT without and with contrast is recommended. Reviewed, dictated and finalized at location A. IMPRESSION: 1. Increased activity in the prostate on the right, consistent with primary mal ignancy. No evidence of metastatic disease. 2. Mild pelvic lymphadenopathy without increased activity, likely reactive. 3. 11 mm left kidney mass, which may be a hemorrhagic cyst or less likely renal cell carcinoma. Abdomen CT without and with contrast is recommended.
== END 2024-03-20 08:28 | disposition home or self-care (01) ==
PROVIDERS: PCP Internal Medicine; Visit Provider Urology
DX: C61 Malignant neoplasm of prostate (principal); R59.0 Localized enlarged lymph nodes; N28.89 Other specified disorders of kidney and ureter
CPT/HCPCS: 78815; A9596

== ENCOUNTER 2024-03-24 09:20 | Outpatient (CLI) | payer OTHER, SELFPAY ==
--- NOTE | 2024-03-24 | ECHO_ITS ---
Patient Info Name: Moises Elizabeth Age: 63 years : 1960 Gender: Male Ht: 70 in Wt: 305 lbs BSA: 2.68 m2 HR: 61 bpm BP: 144 / 89 mmHg Technical Quality: Good, Fair Exam Date: 03/24/2024 9:50 AM Exam Location: Echo Lab Patient Status: Outpatient Admit Date: 03/24/2024 Staff Ordering Physician: AMANDALUDWIG [employer] Keyholder: Cherelle Tang RDCS Attending Provider: LUDWIG ROSS Referring Physician: NATALIE, TONY; Exam Type: CA echo doppler color flow Study Info Indications Q85.00 - NEUROFIBROSIS Z01.818 - Encounter for other preprocedural examination Complete two-dimensional, color flow and Doppler transthoracic echocardiogram is performed. Strain analysis performed. Summary 1. Complete two-dimensional, color flow and Doppler transthoracic echocardiogram is performed. 2. The left ventricle size and systolic function is normal. There is severe concentric left ventricular hypertrophy. LVEF is estimated to be 60-65%. 3. Normal strain pattern. 4. The right ventricle is normal in size and systolic function. Left Ventricle The left ventricle size and systolic function is normal. There is severe concentric left ventricular hypertrophy. LVEF is estimated to be 60-65%. Normal strain pattern. Right Ventricle The right ventricle is normal in size and systolic function. Left Atria Left atrial chamber dimension is normal. Right Atria Right atrial chamber dimension is normal. Aortic Valve The aortic valve is trileaflet and opens well. There is no aortic regurgitation. Pulmonic Valve The pulmonic valve is not well visualized. There is no color Doppler evidence of pulmonic valve regurgitation. Mitral Valve The mitral valve is normal. There is trace mitral regurgitation. Tricuspid Valve The tricuspid valve is normal. There is trace tricuspid regurgitation. Inferior Vena Cava Normal inferior vena cava with <50% collapse upon inspiration consistent with normal right atrial pressure, 8 mmHg. Aorta The aortic root at the level of the sinus of Valsalva is normal in diameter measuring 3.3 cm. Left Ventricular Outflow Tract Name Value Normal LVOT 2D LVOT Diameter 2.0 cm LVOT Doppler LVOT Peak Gradient 5 mmHg LVOT Mean Gradient 3 mmHg LVOT VTI 26 cm LVOT VTI/AV VTI Ratio 1.0 LVOT Stroke Volume 80 ml LVOT CO 4.5 l/min LVOT CI 1.7 l/min/m2 Pulmonic Valve Name Value Normal RVOT Doppler RVOT Peak Gradient 2 mmHg PV Doppler PV Peak Gradient 3 mmHg Mitral Valve Name Value Normal
== END 2024-03-24 09:21 | disposition home or self-care (01) ==
PROVIDERS: PCP Internal Medicine
DX: Z01.818 Encounter for other preprocedural examination (principal); Q85.00 Neurofibromatosis, unspecified; I51.7 Cardiomegaly
CPT/HCPCS: 93306

== ENCOUNTER 2024-04-22 10:12 | Outpatient (CLI) | payer OTHER, SELFPAY ==
--- NOTE | ~2024-04-22 | XR_ITS ---
EXAMINATION: XR chest 2V DATE: 04/22/2024 11:29 INDICATION: Malignant neoplasm of prostate. Sleep apnea. Hypertension. Preop. TECHNIQUE: Frontal and lateral views of the chest were obtained. COMPARISON: PET/CT 03/20/2024 FINDINGS: There is no pneumonia, pleural effusion, or pneumothorax. The heart size is normal. There i s a left shoulder arthroplasty. IMPRESSION: 1. No acute cardiopulmonary disease. Reviewed, dictated and finalized at location B.
[2024-04-22 12:13] LABS: Add Urine Microscopic? NO; Appearance Urine Clear (Clear); Bilirubin Urine Negative (Negative); Blood Urine Negative (Negative); Color Urine Yellow (Yellow); Glucose Urine UA Negative (Negative); Ketones Urine Trace mg/dL (Negative); Leukocyte Esterase Ur Negative LEU/UL (Negative); Nitrate Urine Negative (Negative); Protein Urine Negative (Negative); Specific Grav Ur 1.024 (1.001-1.035)
[2024-04-22 12:16] LABS: Basophils Percent Auto 0.7 % (0.2-1.2); Eosinophils Percent Auto 0.2 % (0-4.4); Hematocrit 42.7 % (42.0-52.0); Hemoglobin 14.6 g/dL (14.0-18.0); Immature Granulocyte Absolute 0.01 K/mm3 (0.00-0.031); Immature Granulocyte Percent A 0.2 % (0-0.5); Immature Platelet Fraction Pct 5.7 % (0.9-11.2); Lymphocytes Absolute Auto 1.63 K/mm3 (0.9-3.2); Lymphocytes Percent Auto 30.2 % (18.3-44.2); Mean Corpuscular HGB Conc 34.2 g/dl (32-36); Mean Corpuscular Volume 93.6 fl (80-100); Mean Platelet Volume 11.3 fl (7.4-10.4); Monocytes Absolute Auto 0.4 K/mm3 (0.1-0.6); Monocytes Percent Auto 8.1 % (2.6-8.5); Neutrophils Absolute Auto 3.3 K/mm3 (1.3-6.7); Neutrophils Percent Auto 60.6 % (45.5-73.1); Platelet Count Result 125 k/mm3 (150-375); Red Blood Count 4.56 M/mm3 (4.6-6.20); Red Cell Distribution Width 12.8 % (11.5-14.5); White Blood Count 5.4 K/mm3 (4.5-10.0)
[2024-04-22 12:24] LABS: Alanine Aminotransferase 37 U/L (6-50); Albumin Level 4.4 g/dL (3.5-5.1); Alkaline Phosphatase 97 U/L (38-126); Anion Gap 10 mmol/L (4-12); Aspartate Amino Transferase 47 U/L (17-59); Bilirubin,Total 0.8 mg/dL (0.2-1.3); Blood Urea Nitrogen 27 mg/dL (9-20); Calcium 9.1 mg/dL (8.4-10.2); Carbon Dioxide 29 mmol/L (22-30); Chloride 101 mmol/L (98-107); Estimated Glomerular Filt Rate > 60; Glucose 102 mg/dL (65-110); Potassium 4.2 mmol/L (3.4-5.0); Sodium 140 mmol/L (137-145)
[2024-04-22 12:33] LABS: INR 1.1; Prothrombin Time 14.1 Seconds (11.1-14.7)
[2024-04-22 12:34] LABS: Partial Thromboplastin Time 29.7 Seconds (22.3-36.8)
== END 2024-04-22 10:13 | disposition home or self-care (01) ==
PROVIDERS: PCP Internal Medicine; Visit Provider Urology
DX: C61 Malignant neoplasm of prostate (principal); Z01.818 Encounter for other preprocedural examination
CPT/HCPCS: 36415; 71046; 80053; 81003; 85025; 85055; 85610; 85730; 86850; 86900; 86901

== ENCOUNTER 2024-07-08 13:31 | Outpatient (CLI) | payer OTHER, SELFPAY ==
--- NOTE | ~2024-07-08 | MR_ITS ---
EXAMINATION: MR pelvis wo/w con DATE: 07/08/2024 15:31 INDICATION: Prostate cancer TECHNIQUE: Magnetic resonance imaging (MRI) of the pelvis was performed without and with 20 mL Multih ance intravenous contrast. Fullfield sequences of the pelvis included axial and coronal T2-weighted S S FSE, axial, sagittal and coronal 2D FIESTA, axial 2D FIESTA FS, axial SSFSE-IR MATT, axial dual-echo T1-weighted FSPGR, axial and coronal T1 weighted LAVA, 3D axial T2 Cube, axial diffusion-weighted SE with apparent diffusion coefficient (ADC) maps. Postcontrast sequences included a time course axial T1-weighted LAVA and sagittal and coronal T1-weighted LAVA. COMPARISON: CT dated 03/06/2024 FINDINGS: Bladder and prostate appear normal. /Portions of bowels including the appendix are normal. No interva l change since PET/CT study dated 03/20/2024 and the couple mildly enlarged bilateral common iliac brooks in lymph nodes each measuring up to 1.2 cm in maximal short axis diameter and which were without abno rmal PSMA uptake to suggest metastatic disease on the prior study. No new or enlarging pelvic or ingu inal lymphadenopathy. There are small bilateral fat-containing inguinal hernias. No free fluid in the pelvis. Moderate lower lumbar spondylosis with fibrofatty degenerative endplate changes. Marrow sign al is otherwise unremarkable. No abnormally enhancing lesions identified. IMPRESSION: 1. No interval change in size of a couple mildly enlarged bilateral external iliac chain lymph nodes since prior PETPET CT at which time the lesion were without increased PSMA activity to suggest metast atic disease. No other lesions suspicious for metastatic disease. 2. Small bilateral fat-containing inguinal hernias. Reviewed, dictated and finalized at location B. TY LEADER IMPRESSION: 1. No interval change in size of a couple mildly enlarged bilateral external il iac chain lymph nodes since prior PETPET CT at which time the lesion were witho ut increased PSMA activity to suggest metastatic disease. No other lesions susp icious for metastatic disease. 2. Small bilateral fat-containing inguinal hernias.
--- NOTE | ~2024-07-08 | MR_ITS ---
EXAMINATION: MR lumbar spine wo/w con DATE: 07/08/2024 15:30 INDICATION: Prostate cancer. TECHNIQUE: Magnetic resonance imaging (MRI) of the lumbar spine was performed without and with 20 mL MultiHance intravenous contrast. COMPARISON: PET/CT 03/20/24 FINDINGS: There is 3 mm retrolisthesis of L2 on L3, L3 on L4, and L4 on L5. There is mild chronic ant erior wedging of T11 and T12 vertebral bodies. There is mildly decreased disc height at L2-L3, modera tely decreased disc height at L3-L4, and severely decreased disc height at L4-L5 and L5-S1. The dista l spinal cord signal intensity is normal. The conus medullaris is at L1-L2. The following disc levels are specifically discussed: L1-L2: The disc is bulging and has an annular fissure. There is mild bilateral facet joint osteoarthr itis. There is mild left neural foraminal stenosis. There is mild central canal stenosis. L2-L3: The disc is bulging and has an annular fissure. There is mild bilateral facet joint osteoarthr itis. There is mild bilateral neural foraminal stenosis. There is mild central canal stenosis. L3-L4: The disc is bulging and has an annular fissure. There is severe bilateral facet joint osteoart hritis. There is mild bilateral neural foraminal stenosis. There is mild central canal stenosis. L4-L5: The disc is bulging and has an annular fissure. There is severe bilateral facet joint osteoart hritis. There is moderate right and mild left neural foraminal stenosis. There is mild central canal stenosis. L5-S1: The disc is bulging and has an annular fissure. There is severe right and moderate left facet joint osteoarthritis. There is moderate right and mild left neural foraminal stenosis. There is mild central canal stenosis. IMPRESSION: 1. No evidence of metastatic disease. 2. Severe lumbar spondylosis. Reviewed, dictated and finalized at location A. SKIVER
== END 2024-07-08 13:32 | disposition home or self-care (01) ==
PROVIDERS: PCP Internal Medicine; Visit Provider Urology
DX: C61 Malignant neoplasm of prostate (principal); M47.896 Other spondylosis, lumbar region; K40.20 Bilateral inguinal hernia, without obstruction or gangrene, not specified as recurrent
CPT/HCPCS: 72158; 72197; A9577

== ENCOUNTER 2024-10-29 08:25 | Outpatient (CLI) | payer OTHER, SELFPAY ==
--- OUTSIDE RECORDS SUMMARY | 2024-10-29 08:32 | XMS_ITS | Clinical Summary ---
Author Organization [facility] Address [address] [place] [address] Care Team Providers Care Picc Nurse Name Role Phone J Carlos Carmichael MD Primary Care Provider Norma Mccarty MD Unavailable [phone] Aleksander Jackson MD Unavailable [phone] Allergies No known active allergies Medications tamsulosin (FLOMAX) 0.4 mg extended release capsuleIndicatio ns:benign prostatic hyperplasia with lower urinary tract sx Take 1 capsule (0.4 mg total) by mouth nightly 12 9 Active ibuprofen (ADVIL,MOTRIN) 800 mg tabletIndication s:Pain Take 1 tablet (800 mg total) by mouth nightly 2 9 Active aspirin 81 mg enteric coated tabletIndication s:heart health Take 1 tablet (81 mg total) by mouth daily with breakfast Active pregabalin (LYRICA) 200 mg capsuleIndicatio ns:Diabetic Peripheral Neuropathy Take 1 capsule (200 mg total) by mouth 2 (two) times a day 0 Active lidocaine (LIDODERM) 5 % OBI 1 TO 2 PATCHES TO SKIN ONCE A DAY PRN FOR 12 H ON AND 12 H OFF UTD 0 Active Symproic 0.2 mg tablet 2 Active Xtampza ER 13.5 mg capsule,sprinkle ,ER 12hr tmprr TAKE 1 CAPSULE BY MOUTH EVERY 12 HOURS FOR 30 DAYS 2 Active oxyCODONE (ROXICODONE) 5 mg immediate release tablet PLEASE SEE ATTACHED FOR DETAILED DIRECTIONS 2 Active furosemide (LASIX) 40 mg tablet TAKE 1 TABLET(40 MG) BY MOUTH DAILY 30 tablet 11 2 Active metroNIDAZOLE (METROGEL) 0.75 % gel APPLY 1 APPLICATION ONTO THE AREA(S) OF ROSACEA TWICE AILY 45 g 1 3 Active sildenafiL (VIAGRA) 100 mg tablet TAKE 1 (ONE) TABLET TABLET DAILY NEEDED 4 Active allopurinoL (ZYLOPRIM) 300 mg tablet Take 1 tablet (300 mg total) by mouth daily 90 tablet 2 4 Active atenoloL (TENORMIN) 50 mg tablet Take 1 tablet (50 mg total) by mouth daily 90 tablet 2 4 Active hydrocortisone (ANUSOL-HC) 2.5 % rectal cream INSERT INTO THE RECTUM 2 TIMES A DAY. 60 g 2 4 Active fluticasone propionate (FLONASE) 50 mcg/actuation nasal spray Administer 2 sprays into each nostril daily 3 each 4 4 Active clindamycin (CLEOCIN T) 1 % lotionIndication s:Neurofibromato sis (HCC) Apply to face 60 mL 2 4 Active doxycycline monohydrate (MONODOX) 50 mg capsuleIndicatio ns:Neurofibromat osis (HCC) Take 1 capsule (50 mg total) by mouth daily 30 capsule 2 4 Active ondansetron (ZOFRAN) 8 mg tabletIndication s:Neurofibromato sis (HCC) Take 1 tablet (8 mg total) by mouth every 8 (eight) hours as needed for nausea or vomiting 24 tablet 3 4 Active prochlorperazine (Compazine) 10 mg tabletIndication s:Neurofibromato sis (HCC) Take 1 tablet (10 mg total) by mouth every 6 (six) hours as needed for nausea or vomiting 30 tablet 3 4 Active simvastatin (ZOCOR) 20 mg tablet TAKE 1 TABLET BY MOUTH EVERY DAY 90 tablet 2 4 Active felodipine (PLENDIL) 10 mg 24 hr tablet TAKE 1 TABLET BY MOUTH EVERY DAY AT NIGHT 90 tablet 3 4 Active neomycin-polymyx in-dexAMETHasone (MAXITROL) 3.5mg/mL-10,000 unit/mL-0.1 % ophthalmic suspension Administer 1 drop into both eyes 4 (four) times a day 5 mL 1 5 Active valACYclovir (VALTREX) 1 gram tablet TAKE 1 TABLET BY MOUTH EVERY DAY 90 tablet 1 5 Active finasteride (PROPECIA) 1 mg tablet TAKE 1 TABLET BY MOUTH EVERY DAY 90 tablet 3 5 Active ciprofloxacin (Cipro) 250 mg tabletIndication s:Prophylaxis, Surgical 500 mg the night before the procedure then 250 mg twice a day for 4 days 10 tablet 5 Active semaglutide (Ozempic) 1 mg/dose (4 mg/3 mL) pen injector injection INJECT 1 MG UNDER THE SKIN EVERY 7 DAYS 9 mL 1 5 Active potassium & sodium phosphates 305-700 mg tablet 1 tablet Active calcitRIOL (ROCALTROL) 0.25 mcg capsule Take 1 capsule (0.25 mcg total) by mouth daily Active abiraterone (ZYTIGA) 250 mg tabletIndication s:Prostate cancer (HCC) Take 4 tablets (1,000 mg total) by mouth daily Take with a glass of water, on an empty stomach at least 1 hr before or 2 hrs after food. 120 tablet 5 5 01/20/20 25 Active predniSONE (DELTASONE) 5 mg tabletIndication s:Prostate cancer (HCC) Take 1 tablet (5 mg) by mouth 2 (two) times a day Take with food. 60 tablet 5 5 01/24/20 25 Active amoxicillin 500 mg capsule Take 1 tablet/capsule (500 mg total) by mouth every 8 (eight) hours 5 Active Active Problems Problem Noted Date Diagnosed Date Left ventricular hypertrophy due to hypertensive disease 07/01/2024 Assessment & Plan (07/01/2024 8:47 AM 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): Will work on weight loss and blood pressure control going forward. Prostate cancer 05/27/2024 Assessment & Plan (07/01/2024 8:47 AM 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): Follow up with oncology Family history of ischemic h eart disease and other diseases of the circulatory system 03/20/2023 Type 2 diabetes mellitus wit hout complication, without long-term current use of insulin 07/17/2022 Leg swelling 09/08/2021 Assessment & Plan (09/08/2021 10:20 AM CDT): Some chronic, exacerbated by injury, check venous doppler Mixed hyperlipidemia 09/12/2020 Encounter for screening colonoscopy 04/27/2020 Overview (04/27/2020): Added automatically from request for surgery [id number] Idiopathic chronic gout without tophus 0 Essential hypertension 03/15/2020 Benign prostatic hyperplasia with lower urinary tract symptoms 03/15/2020 Abdominal pain 02/24/2020 Venous insufficiency 01/28/2020 Overview (01/28/2020): Added automatically from request for surgery [id number] Traumatic open wound of left lower leg with infe ction 07/13/2019 Venous stasis of both lower extremities 07/05/19 20 Edema of both lower extremities 06/02/2019 Wound of left leg 06/02/2019 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 Rad[facility] On[facility] [address] [facility] [place] [address] China Pete RN 10/21/[address] [facility] Rad[facility] On[facility] [address] [place] [address] China Pete RN 10/15/2024 11:00 AM CDT Infusion [facility] [address] [place] [address] Prostate cancer (HCC) (Primary Dx) 10/15/2024 10:30 AM CDT Office Visit [facility] Oncology [address] [place] [address] Aleksander Jackson MD Prostate cancer (HCC) (Primary Dx) 10/15/2024 9:30 AM CDT Lab [facility] [address] [place] [address] Prostate cancer (HCC) 10/14/2024 10:19 AM CDT - 10/14/2024 11:59 PM CDT Hospital Encounter [facility] Rad[facility] [address] [facility] [place] [address] Norma Mccarty MD Discharge Disposition: Discharge to home or self care 10/14/2024 Completion of Therapy [facility] [address] [facility] [place] [address] Norma Mccarty MD 10/14/[address] [facility] Rad[facility] On[facility] [address] [place] [address] China Pete RN 10/14/2024 Orders Only RAD ONC TREATMENTS Miscellaneous, Not In File 10/13/2024 10:19 AM CDT - 10/13/2024 11:59 PM CDT Hospital Encounter [facility] Rad[facility] On[facility] [address] [facility] [place] [address] Norma Mccarty MD Discharge Disposition: Discharge to home or self care 10/13/2024 Orders Only RAD ONC TREATMENTS Miscellaneous, Not In File 10/12/2024 9:13 AM CDT - 10/12/2024 11:59 PM CDT Hospital Encounter [facility] Rad[facility] [address] [facility] [place] [address] Norma Mccarty MD Discharge Disposition: Discharge to home or self care 10/12/2024 Orders Only RAD ONC TREATMENTS Miscellaneous, Not In File 10/09/2024 7:15 AM CDT - 10/09/2024 11:59 PM CDT Hospital Encounter [facility] Rad[facility] On[facility] [address] [place] [address] Norma Mccarty MD Discharge Disposition: Discharge to home or self care 10/09/2024 Orders Only RAD ONC TREATMENTS Miscellaneous, Not In File 10/08/2024 10:39 AM CDT - 10/08/2024 11:59 PM CDT Hospital Encounter [facility] Rad[facility] On[facility] [address] [place] [address] Norma Mccarty MD Discharge Disposition: Discharge to home or self care 10/08/2024 Orders Only RAD ONC TREATMENTS Miscellaneous, Not In File 10/07/2024 9:59 AM CDT - 10/07/2024 11:59 PM CDT Hospital Encounter [facility] Rad[facility] [address] [facility] [place] [address] Norma Mccarty MD Discharge Disposition: Discharge to home or self care 10/07/[address] [facility] [address] [facility] [place] [address] Joey Cordero MD 10/07/2024 Orders Only RAD ONC TREATMENTS Miscellaneous, Not In File 10/07/[address] [facility] Rad[facility] [address] [facility] [place] [address] China Pete RN 10/06/2024 4:04 PM CDT - 10/06/2024 11:59 PM CDT Hospital Encounter [facility] Rad[facility] [address] [facility] [place] [address] Norma Mccarty MD Discharge Disposition: Discharge to home or self care 10/06/2024 Orders Only RAD ONC TREATMENTS Miscellaneous, Not In File 10/05/2024 7:14 AM CDT - 10/05/2024 11:59 PM CDT Hospital Encounter [facility] [address] [facility] [place] [address] Norma Mccarty MD Discharge Disposition: Discharge to home or self care 10/05/2024 [facility] Radiation Oncology [address] [place] [address] China Pete RN 10/05/2024 Orders Only RAD ONC TREATMENTS Miscellaneous, Not In File 10/02/2024 10:23 AM CDT - 10/02/2024 11:59 PM CDT Hospital Encounter [facility] Rad[facility] On[facility] [address] [place] [address] Norma Mccarty MD Discharge Disposition: Discharge to home or self care 10/02/[address] [facility] [address] [facility] [place] [address] Joey Cordero MD 10/02/2024 Orders Only RAD ONC TREATMENTS Miscellaneous, Not In File 10/01/2024 2:53 PM CDT - 10/01/2024 11:59 PM CDT Hospital Encounter [facility] Rad[facility] On[facility] [address] [place] [address] Norma Mccarty MD Discharge Disposition: Discharge to home or self care 10/01/2024 Orders Only RAD ONC TREATMENTS Miscellaneous, Not In File 09/30/2024 9:32 AM CDT - 09/30/2024 11:59 PM CDT Hospital Encounter [facility] [address] [place] [address] Norma Mccarty MD Discharge Disposition: Discharge to home or self care 09/30/2024 Orders Only RAD ONC TREATMENTS Miscellaneous, Not In File 09/29/2024 2:31 PM CDT - 09/29/2024 11:59 PM CDT Hospital Encounter [facility] [address] [place] [address] Norma Mccarty MD Discharge Disposition: Discharge to home or self care 09/29/2024 Orders Only RAD ONC TREATMENTS Miscellaneous, Not In File 09/28/2024 9:20 AM CDT - 09/28/2024 11:59 PM CDT Hospital Encounter [facility] [address] [place] [address] Norma Mccarty MD Discharge Disposition: Discharge to home or self care 09/28/2024 Orders Only RAD ONC TREATMENTS Miscellaneous, Not In File 09/25/2024 10:34 AM CDT - 09/25/2024 11:59 PM CDT Hospital Encounter [facility] Rad[facility] On[facility] [address] [place] [address] Norma Mccarty MD Discharge Disposition: Discharge to home or self care 09/25/[address] [facility] Rad[facility] On[facility] [address] [place] [address] [place] [address] Chase Farah MD PhD 09/25/2024 Orders Only RAD ONC TREATMENTS Miscellaneous, Not In File 09/24/2024 10:15 AM CDT - 09/24/2024 11:59 PM CDT Hospital Encounter [facility] Rad[facility] On[facility] [address] [place] [address] [place] [address] Norma Mccarty MD Discharge Disposition: Discharge to home or self care 09/24/2024 Telephone [facility] Radiation Oncology [address] [place] [address] China Pete RN 09/24/2024 Orders Only RAD ONC TREATMENTS Miscellaneous, Not In File 09/23/2024 7:15 AM CDT - 09/23/2024 11:59 PM CDT Hospital Encounter [facility] Radiation Oncology [address] [place] [address] Norma Mccarty MD Discharge Disposition: Discharge to home or self care 09/23/2024 Telephone [facility] Radiation Oncology [address] [place] [address] China Pete RN 09/23/2024 Orders Only RAD ONC TREATMENTS Miscellaneous, Not In File 09/22/2024 10:26 AM CDT - 09/22/2024 11:59 PM CDT Hospital Encounter [facility] Rad[facility] On[facility] [address] [place] [address] Norma Mccarty MD Discharge Disposition: Discharge to home or self care 09/22/2024 Orders Only RAD ONC TREATMENTS Miscellaneous, Not In File 09/21/2024 10:40 AM CDT - 09/21/2024 11:59 PM CDT Hospital Encounter [facility] Radiation Oncology [address] [place] [address] Norma Mccarty MD Discharge Disposition: Discharge to home or self care 09/21/2024 Orders Only RAD ONC TREATMENTS Miscellaneous, Not In File 09/18/2024 9:17 AM CDT - 09/18/2024 11:59 PM CDT Hospital Encounter [facility] [address] [facility] [place] [address] Norma Mccarty MD Discharge Disposition: Discharge to home or self care 09/18/2024 [facility] Radiation Oncology [address] [place] [address] China Pete RN 09/18/2024 Orders Only RAD ONC TREATMENTS Miscellaneous, Not In File 09/17/2024 9:16 AM CDT - 09/17/2024 11:59 PM CDT Hospital Encounter [facility] Radiation Oncology [address] [place] [address] Norma Mccarty MD Discharge Disposition: Discharge to home or self care 09/17/2024 Orders Only RAD ONC TREATMENTS Miscellaneous, Not In File 09/16/2024 9:23 AM CDT - 09/16/2024 11:59 PM CDT Hospital Encounter [facility] Radiation Oncology [address] [place] [address] Norma Mccarty MD Discharge Disposition: Discharge to home or self care 09/16/2024 Orders Only RAD ONC TREATMENTS Miscellaneous, Not In File 09/16/2024 Orders Only [facility] Oncology [address] [place] [phone] Aleksander Jackson MD 09/16/2024 Orders Only [facility] Oncology [address] [place] [phone] Ba Yoon RN 09/15/2024 10:58 AM CDT - 09/15/2024 11:59 PM CDT Hospital Encounter [facility] Rad[facility] On[facility] [address] [place] [address] Norma Mccarty MD Discharge Disposition: Discharge to home or self care 09/15/[address] [facility] [address] [facility] [place] [address] Bassem Lagos MD 09/15/2024 Orders Only RAD ONC TREATMENTS Miscellaneous, Not In File 09/14/2024 8:44 AM CDT - 09/14/2024 11:59 PM CDT Hospital Encounter [facility] Radiation Oncology [address] [place] [address] Norma Mccarty MD Discharge Disposition: Discharge to home or self care 09/14/2024 Telephone [facility] Radiation Oncology [address] [place] [address] China Pete RN 09/14/2024 Orders Only RAD ONC TREATMENTS Miscellaneous, Not In File 09/11/2024 10:52 AM CDT - 09/11/2024 11:59 PM CDT Hospital Encounter [facility] Rad[facility] On[facility] [address] [place] [address] Norma Mccarty MD Discharge Disposition: Discharge to home or self care 09/11/[address] [facility] Rad[facility] On[facility] [address] [place] [address] Norma Mccarty MD 09/11/2024 Orders Only RAD ONC TREATMENTS Miscellaneous, Not In File 09/10/2024 10:08 AM CDT - 09/10/2024 11:59 PM CDT Hospital Encounter [facility] Radiation Oncology [facility] [place] [address] Norma Mccarty MD Discharge Disposition: Discharge to home or self care 09/10/2024 Orders Only RAD ONC TREATMENTS Miscellaneous, Not In File 09/09/2024 9:11 AM CDT - 09/09/2024 11:59 PM CDT Hospital Encounter [facility] Rad[facility] On[facility] [address] [facility] [place] [address] Norma Mccarty MD Discharge Disposition: Discharge to home or self care 09/09/2024 Orders Only RAD ONC TREATMENTS Miscellaneous, Not In File 09/08/2024 10:15 AM CDT - 09/08/2024 11:59 PM CDT Hospital Encounter [facility] Rad[facility] On[facility] [address] [place] [address] Norma Mccarty MD Discharge Disposition: Discharge to home or self care 09/08/2024 Orders Only RAD ONC TREATMENTS Miscellaneous, Not In File 09/07/2024 10:30 AM CDT - 09/07/2024 11:59 PM CDT Hospital Encounter [facility] Radiation Oncology [address] [place] [address] Discharge Disposition: Discharge to home or self care 09/07/2024 Orders Only RAD ONC TREATMENTS Miscellaneous, Not In File 09/02/2024 8:30 PM CDT - 09/02/2024 11:59 PM CDT Hospital Encounter [facility] Radiation Oncology [address] [place] [address] Norma Mccarty MD Discharge Disposition: Discharge to home or self care 08/27/2024 10:45 AM 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 Office Visit [facility] Oncology [address] [place] [address] Aleksander Jackson MD Prostate cancer (HCC) (Primary Dx) 08/27/2024 9:45 AM 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 Lab [facility] [address] [facility] [place] [address] Prostate cancer (HCC) 08/24/2024 12:23 PM 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 - 08/24/2024 11:59 PM 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 Hospital Encounter [facility] Radiation Oncology [address] [place] [address] Norma Mccarty MD Discharge Disposition: Discharge to home or self care 08/24/2024 11:37 AM 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 - 08/24/2024 11:59 PM 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 Hospital Encounter [facility] Rad[facility] On[facility] [address] [facility] [place] [address] Norma Mccarty MD Discharge Disposition: Discharge to home or self care 08/24/2024 10:00 AM 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 - 08/24/2024 11:59 PM 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 Hospital Encounter [facility] Radiation Oncology [address] [place] [address] Norma Mccarty MD Prostate cancer (HCC) (Primary Dx) Discharge Disposition: Discharge to home or self care 08/24/2024 Orders Only [facility] Radiation Oncology [address] [place] [address] [place] [address] Norma Mccarty MD 08/24/2024 Orders Only [facility] Oncology [address] [place] [address] [place] [address] Norma Mccarty MD 08/17/2024 Telephone [facility] Oncology [address] [place] [address] Maryana Noe CMA 08/14/2024 Telephone [facility] Radiation Oncology [address] [place] [address] Norma Mccarty MD 08/14/2024 Results Follow-Up [facility]cology [address] [place] [address] [place] [address] Serena Mendes RN 08/13/2024 12:25 PM 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 - 08/13/2024 11:59 PM 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 Hospital Encounter [facility] [address] [facility] [address] [place] [address] Prostate cancer (HCC) Discharge Disposition: Discharge to home or self care from Last 3 Months Immunizations Immunization Administration Dates Next Due Influenza, Quadrivalent, Vanessa l Culture-based MDCK, Preservative Free, Antibiotic Free, Intramuscular 04/12/2022 Influenza, Quadrivalent, Spl it, Preservative Free, Intramuscular 03/24/2019 Pfizer SARS-CoV-2 Monovalent Vaccination (12+ Yrs) LEACH-READY TO USE 09/08/2021 Pfizer SARS-CoV-2 Monovalent Vaccination (12+ Yrs) PURPLE 09/15/2020,08/25/2020 Pneumococcal Conjugate Pcv20 04/12/2022 Tdap 09/07/2018,08/12/2015 Tetanus toxoid, adsorbed 07/17/2022 ZOSTER Recombinant 03/23/2018, 8,01/06/2018,01/05 Surgical History Surgery Date Site/Laterality Comments KNEE SURGERY Right PA INCISION & DRAINAGE PILONIDAL CYST SIMPLE Incision And Drainage Of Pilonidal Cyst - (Added by TW Conv) THORACIC SPINE SURGERY neurofibroma removal URETHRA SURGERY Urethra Surgery - (Added by TW Conv) NEUROFIBROMA EXCISION Left Excision Of Neurofibroma - (Left lung) EPIDURAL INJECTION LEFT CERVICAL THORACIC 1 LEVEL 11/25/2018 Left US GUIDED BIOPSY LYMPH NODE SUPERFICIAL LEFT 07/01/2019 N/A TOTAL SHOULDER REPLACEMENT Left COLONOSCOPY EPIDURAL INJECTION LEFT CERVICAL THORACIC 1 LEVEL 04/23/2022 Left Medical History Medical History Date Comments Gout Gout - (Added by TW Conv) Personal history of other en docrine, nutritional and metabolic disease History of hyperlipi demia - (Added by TW Conv) Other hemorrhoids Internal hemor rhoids - (Added by TW Conv) Personal history of other di seases of the circulatory system History of hypertension - (A dded by TW Conv) GERD (gastroesophageal reflux disease) Hypertension Hyperlipidemia Sleep apnea Neurofibromatosis, type 1 (HCC) Cancer (HCC) Prostate cancer (HCC) Family History Medical History Relation Name Comments Hypertension Father Prostate cancer Father Family histo ry of malignant neoplasm of prostate - (Added by TW Conv) No Known Problems Maternal Grandfather No Known Problems Maternal Grandmother Arthritis Mother Family history of arthritis - (Added by TW Conv) Cancer Other Cancer - (Added by TW Conv) No Known Problems Paternal Grandfather No Known Problems Paternal Grandmother Breast cancer Sister Relation Name Status Comments Father Maternal Grandfather Maternal Grandmother Mother Other Paternal Grandfather Paternal Grandmother Sister Alive Social History Tobacco Use Types Packs/Day Years Used Date Smoking Tobacco: Never Passive Smoke Exposure: Never Smokeless Tobacco: Never Tobacco Cessation:Counseling Given: Not Answered Alcohol Use Standard Drinks/Week Comments Not Currently 0 (1 standard drink = 0.6 oz pur e alcohol) AUDIT-C Answer Date Recorded Q1: How often do you have a drink containing alcohol? Never 07/01/2024 Q2: How many drinks containi ng alcohol do you have on a typical day when you are drinking? Patient does not drink Q3: How often do you have si x or more drinks on one occasion? Never 07/01/2024 Sex and Gender Information Value Date Recorded Sex Assigned at Not on file Legal Sex Male 1:05 PM 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 Gender Identity Male 02/24/2020 1:23 PM CDT Sexual Orientation Straight 06/19/2019 6: 02 PM 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 Obstetrics History Last Filed Vital Signs Vital Sign Reading Time Taken Comments Blood Pressure 130/75 10/15/2024 10:18 AM CDT Pulse 61 10/15/2024 10:18 AM CDT Temperature 37.1 C (98.7 F) 10/15/2024 10:18 AM CDT Respiratory Rate 17 10/15/2024 10:18 AM CDT Oxygen Saturation 96% 10/15/2024 10:18 AM CDT Inhaled Oxygen Concentration - - Weight 149 kg (328 lb 6.4 oz) 10/15/2024 10:18 A M CDT Height 177.8 cm (5' 10 ) 07/01/2024 10:51 AM 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 Body Mass Index 47.12 07/01/2024 10:51 AM 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 Plan of Treatment Health Maintenance Due Date Last Done Comments Albumin Creatinine Ratio, Urine 1959 Depression Screening 1959 Hepatitis C Screening 1959 Dilated Eye Exam 1959 Foot Exam 1959 Hepatitis B Screening 11/19/1977 Regular Well Visit/Exam 18-64 11/19/1977 Covid-19 Vaccine (2023- 5 season) 2024 09/08/2021, 09/15/2020, 08/25/2020 Hemoglobin A1C 11/25/2024 05/27/2024, 07/0 06/2023, 08/15/2023, Additional history exists Lipid Panel 12/22/2024 12/23/2023, 12/23, 07/17/2022, Additional history exists Influenza Vaccine (Season Ended) 2025 04/12/20, 03/24/2019 eGFR 10/15/2025 10/15/2024, 03/0 11/2024, 07/23/2024, Additional history exists Prostate Cancer Screening-PSA 10/15/2026, 08/27/2024, 07/23/2024, Additional history exists Colon Cancer Screening-Colonoscopy 07/15/2030 07/15/2020 DTaP/Tdap/Td Vaccine (4 - Td or Tdap) 07/17/2032 07/17/2022, 09/07/2018, 08/12/2015 Zoster Vaccine Completed 03/23/2018, 02/23, 01/06/2018, Additional history exists Colon Cancer Screening-CT Colonography Discontinued 07/15/2020 Colon Cancer Screening-DNA Stool Discontinued 07/15/19 Colon Cancer Screening-FIT Discontinued 07/15/2020 Colon Cancer Screening-Sigmoidoscopy Discontinued 07/15/2020 Pneumococcal vaccine <65 Completed 04/12/2022 Medical Devices Implanted Type Area Ergonomist Device Identifier Shelf Expiration Date Model / Serial / Lot Lt Total Shoulder Arthroplasty Implanted: [id number] (Quantity not on file) Left: Shoulder Procedures Procedure Name Priority Date/Time Associated Diagnosis Comments EGFR Routine 10/15/2024 10:09 AM CDT Prostate cancer (HCC) DIFFERENTIAL AUTO Routine 10/15/2024 10:09 AM CDT Prostate cancer (HCC) CBC WITH AUTO DIFFERENTIAL Routine 10/15/2024 10:09 AM CDT Prostate cancer (HCC) COMPREHENSIVE METABOLIC PANEL Routine 10/15/2024 10:09 AM CDT Prostate cancer (HCC) PSA DIAGNOSTIC Routine 10/15/2024 10:09 AM CDT Prostate cancer (HCC) RAD ONC ARIA SESSION SUMMARY 10/14/2024 10:31 AM CDT RAD ONC ARIA SESSION SUMMARY 10/13/2024 10:29 AM CDT RAD ONC ARIA SESSION SUMMARY 10/12/2024 9:34 AM CDT RAD ONC ARIA SESSION SUMMARY 10/09/2024 7:26 AM CDT RAD ONC ARIA SESSION SUMMARY 10/08/2024 11:09 AM CDT RAD ONC ARIA SESSION SUMMARY 10/07/2024 10:10 AM CDT RAD ONC ARIA SESSION SUMMARY 10/06/2024 4:17 PM CDT RAD ONC ARIA SESSION SUMMARY 10/05/2024 7:49 AM CDT RAD ONC ARIA SESSION SUMMARY 10/02/2024 10:43 AM CDT RAD ONC ARIA SESSION SUMMARY 10/01/2024 3:37 PM CDT RAD ONC ARIA SESSION SUMMARY 09/30/2024 9:55 AM CDT RAD ONC ARIA SESSION SUMMARY 09/29/2024 2:44 PM CDT RAD ONC ARIA SESSION SUMMARY 09/28/2024 9:34 AM CDT RAD ONC ARIA SESSION SUMMARY 09/25/2024 10:48 AM CDT RAD ONC ARIA SESSION SUMMARY 09/24/2024 10:35 AM CDT RAD ONC ARIA SESSION SUMMARY 09/23/2024 7:37 AM CDT RAD ONC ARIA SESSION SUMMARY 09/22/2024 10:54 AM CDT RAD ONC ARIA SESSION SUMMARY 09/21/2024 11:07 AM CDT RAD ONC ARIA SESSION SUMMARY 09/18/2024 10:16 AM CDT RAD ONC ARIA SESSION SUMMARY 09/17/2024 9:40 AM CDT RAD ONC ARIA SESSION SUMMARY 09/16/2024 9:58 AM CDT RAD ONC ARIA SESSION SUMMARY 09/15/2024 11:24 AM CDT RAD ONC ARIA SESSION SUMMARY 09/14/2024 9:42 AM CDT RAD ONC ARIA SESSION SUMMARY 09/11/2024 11:08 AM CDT RAD ONC ARIA SESSION SUMMARY 09/10/2024 10:28 AM CDT RAD ONC ARIA SESSION SUMMARY 09/09/2024 9:48 AM CDT RAD ONC ARIA SESSION SUMMARY 09/08/2024 10:46 AM CDT RAD ONC ARIA SESSION SUMMARY 09/07/2024 10:50 AM CDT THYROID FUNCTION CASCADE STAT 08/27/2024 9:25 AM 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 Prostate cancer (HCC) MAGNESIUM STAT 08/27/2024 9:25 AM 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 Prostate cancer (HCC) EGFR STAT 08/27/2024 9:25 AM 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 Prostate cancer (HCC) DIFFERENTIAL AUTO STAT 08/27/2024 9:2 5 AM 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 Prostate cancer (HCC) CBC WITH AUTO DIFFERENTIAL STAT 08/27/2024 9:25 AM 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 Prostate cancer (HCC) COMPREHENSIVE METABOLIC PANEL STAT 08/27/2024 9:25 AM 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 Prostate cancer (HCC) PSA DIAGNOSTIC Routine 08/27/2024 9:25 AM 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 Prostate cancer (HCC) TOTAL TESTOSTERONE Routine 08/27/2024 9: 25 AM 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 Prostate cancer (HCC) PET/CT PROSTATE CANCER PSMA SKULL TO THIGH Schedule Routine, Read Routine (OP Routine) 08/13/2024 2:43 PM 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 Prostate cancer (HCC) POCT HEMOGLOBIN A1C Routine 05/27/2024 8 :39 AM 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 Type 2 diabetes mellitus without complication, without long-term current use of insulin (HCC) POCT LIPID PANEL Routine 12/23/2023 8:40 AM CDT Mixed hyperlipidemia COLONOSCOPY Routine 07/15/2020 from Last 3 Months or Most Recently Relevant to Health Maintenance Results * eGFR (10/15/2024 10:09 AM CDT) eGFR 68 >=60 mL/min/1. 73 m2 Comment: Interpretive Data Reference Interval Normal >/= 90 mL/min/1.73m2 Mildly decreased* 60 - 89 mL/min/1.73m2 Mildly to moderately decreased 45 - 59 mL/min/1.73m2 Moderately to severely decreased 30 - 44 mL/min/1.73m2 Severely decreased 15 - 29 mL/min/1.73m2 Kidney Failure < 15 mL/min/1.73m2 *Relative to young adult level Estimated glomerular filtration rate is determined by the 2020 CKD-EPI equation recommended by the National Kid[employer] (A Unifying Approach to GFR Estimation: Recommendations of the NKF-ASK Task Force on Reassessing the Inclusion of Race in Diagnosing Kidney Disease, JASN 2020). The CKD-EPI equation should not be used for patients with unstable renal function and has not been validated in children and those over 70. Current interpretive data was last reviewed 2021. Testing performed by: [facility], [address] [place] [address] Blood 10/15/2024 10:0 9 AM CDT 10/15/2024 10:19 AM CDT Aleksander Jackson MD LAB BLOOD ORDERABLES Fin al Result [facility] [address] [place] [address] * (ABNORMAL) Differential, auto (10/15/2024 10:09 AM CDT) Neutrophil abs 3.30 1.50 - 6.50 K/cumm Comment:Testing performed by : [facility], [address] [place] [address] Imm gran abs 0.02 0.00 - 0.10 K/cumm CERNER BJWCH Comment:Testing performed by : [place] [address], [address] [place] [address] Lymphocyte abs 0.23(L) 0.80 - 3.30 K/cumm CERNER BJWCH Comment:Testing performed by : [place] [address], [address] [place] [address] Monocyte abs 0.51 0.20 - 0.80 K/cumm CERNER BJWCH Comment:Testing performed by : [facility], [address] [place] [address] Eosinophil abs 0.00 0.00 - 0.50 K/cumm CERNER BJWCH Comment:Testing performed by : [facility], [address] [place] [address] Basophil abs 0.02 0.00 - 0.10 K/cumm CERNER BJWCH Comment:Testing performed by : [facility], [address] [place] [address] Neutrophil pct 80.9 % CERNER BJWCH Comment: Interpretive Data Percent cell count reference ranges are not reported, since discordance with absolute values may lead to misinterpretation of CBC data. Current Interpretive Data was last revised on 2017. Testing performed by: [facility], [facility], [address] [place] [address] Imm gran pct 0.5 % CERNER BJWCH Comment: Interpretive Data Percent cell count reference ranges are not reported, since discordance with absolute values may lead to misinterpretation of CBC data. Current Interpretive Data was last revised on 2017. Testing performed by: [facility], [facility], [address] [place] [address] Lymphocyte pct 5.6 % CERNER BJWCH Comment: Interpretive Data Percent cell count reference ranges are not reported, since discordance with absolute values may lead to misinterpretation of CBC data. Current Interpretive Data was last revised on 2017. Testing performed by: [facility], [facility], [address] [place] [address] Monocyte pct 12.5 % CERNER BJWCH Comment: Interpretive Data Percent cell count reference ranges are not reported, since discordance with absolute values may lead to misinterpretation of CBC data. Current Interpretive Data was last revised on 2017. Testing performed by: [facility], [facility], [address] [place] [address] Eosinophil pct 0.0 % CERNER BJWCH Comment: Interpretive Data Percent cell count reference ranges are not reported, since discordance with absolute values may lead to misinterpretation of CBC data. Current Interpretive Data was last revised on 2017. Testing performed by: [facility], [facility], [address] [place] [address] Basophil pct 0.5 % CERNER BJWCH Comment: Interpretive Data Percent cell count reference ranges are not reported, since discordance with absolute values may lead to misinterpretation of CBC data. Current Interpretive Data was last revised on 2017. Testing performed by: [facility], [facility], [address] [place] [address] Blood 10/15/2024 10:0 9 AM CDT 10/15/2024 10:10 AM CDT us Aleksander Jackson MD LAB BLOOD ORDERABLES Fin al Result [facility] [address] [facility]. [place] [address] * (ABNORMAL) CBC with auto differential (10/15/2024 10:09 AM CDT) WBC 4.08 3.80 - 9.90 K/cumm Comment:Testing performed by : [place] [address], [place] [address] Hgb 13.5 13.0 - 17.5 g/dL GREG SPAIN Comment:Testing performed by : [place] [address], [place] [address] Hct 38.5(L) 38.9 - 50.3 % GREG SPAIN Comment:Testing performed by : [place] [address], [address] [place] [address] Plt 126(L) 150 - 400 K/cumm GREG SPAIN Comment:Testing performed by : [place] [address], [address] [place] [address] MPV 9.8 9.1 - 12.3 fL GREG SPAIN Comment:Testing performed by : [place] [address], [address] [place] [address] RBC 4.08(L) 4.30 - 5.80 M/cumm GREG SPAIN Comment:Testing performed by : [place] [address], [address] [place] [address] MCV 94.4 81.3 - 96.4 fL GREG SPAIN Comment:Testing performed by : [place] [address], [address] [place] [address] MCH 33.1 27.1 - 33.3 pg GREG SPAIN Comment:Testing performed by : [facility], [facility], [address] [place] [address] MCHC 35.1 32.3 - 35.7 g/dL GREG SPAIN Comment:Testing performed by : [facility], [facility], [address] [place] [address] RDW CV 14.3 11.1 - 14.9 % GREG SPAIN Comment:Testing performed by : [facility], [facility], [address] [place] [address] RDW SD 49.1(H) 35.7 - 48.1 fL GREG SPAIN Comment:Testing performed by : [facility], [facility], [address] [place] [address] ANC Prelim 3.30 1.50 - 6.50 K/cumm GREG SPAIN Comment: Interpretive Data The rapid ANC is a preliminary automated count and may vary from the final ANC (Neut Abs) reported in the WBC differential that follows. Current interpretive data was last revised 2024. Testing performed by: [facility], [facility], [address] [place] [address] Blood 10/15/2024 10:0 9 AM CDT 10/15/2024 10:10 AM CDT us Aleksander Jackson MD LAB BLOOD ORDERABLES Fin al Result [facility] [address] [facility] [place] [address] * PSA diagnostic (10/15/2024 10:09 AM CDT) PSA-Total <0.10 <=5.40 ng/mL Comment: Interpretive Data AGE SEX REFERENCE INTERVAL 0 minutes-150 years Female None 0 minutes-49 years Male None 50-59 years Male 0-3.90 60-69 years Male 0-5.40 70-79 years Male 0-6.20 80-150 years Male 0-6.20 The Patricia PSA Total assay procedure was used. Results from different manufacturers or methods may not be comparable. Serial testing should be performed using the same method. Current interpretive data last revised 21. Testing performed by: [facility], [address] [place] [address] Blood 10/15/2024 10:0 9 AM CDT 10/15/2024 10:19 AM CDT Aleksander Jackson MD LAB BLOOD ORDERABLES Fin al Result [facility] [address]. [place] [address] * (ABNORMAL) Comprehensive metabolic panel (10/15/2024 10:09 AM CDT) Sodium 141 135 - 145 mmol/L Comment:Testing performed by : [facility], [address], [place] [address] Potassium, pl 4.6 3.3 - 4.9 mmol/L GREG BJWTIANA Comment:Testing performed by : [facility], [address] [place], [place] [address] Chloride 105 97 - 110 mmol/L GREG STVEENSWTIANA Comment:Testing performed by : [facility], [address] [place] [address] CO2 25 22 - 32 mmol/L CERJUAN LUIS BJWCH Comment:Testing performed by : [facility], [address] [place] [address] Anion gap 11 2 - 15 mmol/L GREG BJWCH Comment:Testing performed by : [facility], [address] [place], [place] [address] BUN 29(H) 6 - 25 mg/dL CERJUAN LUIS STEVENSWCH Comment:Testing performed by : [facility], [address] [place] [address] Creatinine 1.20 0.80 - 1.30 mg/dL CERJUAN LUIS BJWCH Comment:Testing performed by : [facility], [address], [place] [address] Glucose 115 70 - 199 mg/dL CERNER BJWCH Comment: Interpretive Data Fasting glucose >/= 126 mg/dl is diagnostic for diabetes. Fasting is defined as no caloric intake for at least 8 hours. Fasting glucose between 100 mg/dl to 125 mg/dl is diagnostic of prediabetes. In a patient with classic symptoms of hyperglycemia or hyperglycemic crisis, a random glucose >/= 200 mg/dl is diagnostic for diabetes. In the absence of unequivocal hyperglycemia, results should be confirmed by repeat testing. The classification and Diagnosis of Diabetes Diabetes Care 2021; 46: S19-S40. Current interpretive data was last revised 2022. Testing performed by: [facility], [address], [place] [address] Calcium 9.4 8.5 - 10.3 mg/dL CERNER BJWCH Comment:Testing performed by : [facility], [address], [place] [address] Bilirubin, total 0.5 0.1 - 1.2 mg/dL CERNER BJWCH Comment:Testing performed by : [facility], [address], [place] [address] Protein, pl 7.1 6.5 - 8.5 g/dL CERNER BJWCH Comment:Testing performed by : [facility], [address], [place] [address] Albumin 4.3 3.5 - 5.0 g/dL CERNER BJWCH Comment:Testing performed by : [facility], [address], [place] [address] Alk phos 101 40 - 130 Units/L CERNER BJWCH Comment:Testing performed by : [facility], [address], [place] [address] ALT 28 7 - 55 Units/L CERNER BJWCH Comment:Testing performed by : [facility], [address], [place] [address] AST 24 10 - 50 Units/L CERNER BJWCH Comment:Testing performed by : [facility], [address], [place] [address] Blood 10/15/2024 10:0 9 AM CDT 10/15/2024 10:19 AM CDT Aleksander Jackson MD LAB BLOOD ORDERABLES Fin al Result Performing Organization Address [facility] Co de Phone Number GREG BJCH [address] [facility]. [place] [address] * RAD ONC ARIA SESSION SUMMARY (10/14/2024 10:31 AM CDT) Course Name [email or web address]_[email or web address] e ARIA Course Plan Date 08/24/2024 12:32 PM ARIA Elapsed Days 37 ARIA Treatment Start Date 09/07/2024 ARIA Treatment Site [id number] ARIA Dose Given To Date (cGy) 7,000 ARIA Session Dosage Given (cGy) 250 ARIA Plan ID Prost Bst ARIA Fractions Treated 3 ARIA Prescribed Dose Per Fraction (cGy) 250 ARIA Prescribed Total Dose (cGy) 750 ARIA 10/14/2024 10:3 1 AM CDT us Not In File Miscellaneous RADIATION ONCOLOGY ORD ERABLES Final Result Performing Organization Address [facility] Co de Phone Number ARIA * RAD ONC ARIA SESSION SUMMARY (10/13/2024 10:29 AM CDT) Course Name [email or web address]_Prostat ARIA Course Plan Date 08/24/2024 12:32 PM ARIA Elapsed Days 36 ARIA Treatment Start Date 09/07/2024 ARIA Treatment Site [id number] ARIA Dose Given To Date (cGy) 6,750 ARIA Session Dosage Given (cGy) 250 ARIA Plan ID Prost Bst ARIA Fractions Treated 2 ARIA Prescribed Dose Per Fraction (cGy) 250 ARIA Prescribed Total Dose (cGy) 750 ARIA 10/13/2024 10:2 9 AM CDT us Not In File Miscellaneous RADIATION ONCOLOGY ORD ERABLES Final Result ARIA * RAD ONC ARIA SESSION SUMMARY (10/12/2024 9:34 AM CDT) Course Name [email or web address] e_2024 ARIA Course Plan Date 08/24/2024 12:32 PM ARIA Elapsed Days 35 ARIA Treatment Start Date 09/07/2024 ARIA Treatment Site [id number] ARIA Dose Given To Date (cGy) 6,500 ARIA Session Dosage Given (cGy) 250 ARIA Plan ID Prost Bst ARIA Fractions Treated 1 ARIA Prescribed Dose Per Fraction (cGy) 250 ARIA Prescribed Total Dose (cGy) 750 ARIA 10/12/2024 9:34 AM CDT us Not In File Miscellaneous RADIATION ONCOLOGY ORD ERABLES Final Result Performing Organization Address City/[facility]/ZIP Co de Phone Number ARIA * RAD ONC ARIA SESSION SUMMARY (10/09/2024 7:26 AM CDT) Course Name C1_Prostate _2024 ARIA Course Plan Date 08/24/2024 12:32 PM ARIA Elapsed Days 32 ARIA Treatment Start Date 09/07/2024 ARIA Treatment Site [id number] ARIA Dose Given To Date (cGy) 6,250 ARIA Session Dosage Given (cGy) 250 ARIA Plan ID Pelvic Nodes ARIA Fractions Treated 25 ARIA Prescribed Dose Per Fraction (cGy) 250 ARIA Prescribed Total Dose (cGy) 6,250 ARIA 10/09/2024 7:26 AM CDT us Not In File Miscellaneous RADIATION ONCOLOGY ORD ERABLES Final Result ARIA * RAD ONC ARIA SESSION SUMMARY (10/08/2024 11:09 AM CDT) Course Name C1_Prostate _2024 ARIA Course Plan Date 08/24/2024 12:32 PM ARIA Elapsed Days 31 ARIA Treatment Start Date 09/07/2024 ARIA Treatment Site [id number] ARIA Dose Given To Date (cGy) 6,000 ARIA Session Dosage Given (cGy) 250 ARIA Plan ID Pelvic Nodes ARIA Fractions Treated 24 ARIA Prescribed Dose Per Fraction (cGy) 250 ARIA Prescribed Total Dose (cGy) 6,250 ARIA 10/08/2024 11:0 9 AM CDT us Not In File Miscellaneous RADIATION ONCOLOGY ORD ERABLES Final Result Performing Organization Address City/[facility] Co de Phone Number ARIA * RAD ONC ARIA SESSION SUMMARY (10/07/2024 10:10 AM CDT) Course Name C1_Prostate _2024 ARIA Course Plan Date 08/24/2024 12:32 PM ARIA Elapsed Days 30 ARIA Treatment Start Date 09/07/2024 ARIA Treatment Site [id number] ARIA Dose Given To Date (cGy) 5,750 ARIA Session Dosage Given (cGy) 250 ARIA Plan ID Pelvic Nodes ARIA Fractions Treated 23 ARIA Prescribed Dose Per Fraction (cGy) 250 ARIA Prescribed Total Dose (cGy) 6,250 ARIA 10/07/2024 10:1 0 AM CDT us Not In File Miscellaneous RADIATION ONCOLOGY ORD ERABLES Final Result Performing Organization Address [facility] Co de Phone Number ARIA * RAD ONC ARIA SESSION SUMMARY (10/06/2024 4:17 PM CDT) Course Name C1_Prostate _2024 ARIA Course Plan Date 08/24/2024 12:32 PM ARIA Elapsed Days 29 ARIA Treatment Start Date 09/07/2024 ARIA Treatment Site [id number] ARIA Dose Given To Date (cGy) 5,500 ARIA Session Dosage Given (cGy) 250 ARIA Plan ID Pelvic Nodes ARIA Fractions Treated 22 ARIA Prescribed Dose Per Fraction (cGy) 250 ARIA Prescribed Total Dose (cGy) 6,250 ARIA 10/06/2024 4:17 PM CDT us Not In File Miscellaneous RADIATION ONCOLOGY ORD ERABLES Final Result SHEN * RAD ONC ARIA SESSION SUMMARY (10/05/2024 7:49 AM CDT) Course Name C1_Prostate _2024 ARIA Course Plan Date 08/24/2024 12:32 PM ARIA Elapsed Days 28 ARIA Treatment Start Date 09/07/2024 ARIA Treatment Site [id number] ARIA Dose Given To Date (cGy) 5,250 ARIA Session Dosage Given (cGy) 250 ARIA Plan ID Pelvic Nodes ARIA Fractions Treated 21 ARIA Prescribed Dose Per Fraction (cGy) 250 ARIA Prescribed Total Dose (cGy) 6,250 ARIA 10/05/2024 7:49 AM CDT us Not In File Miscellaneous RADIATION ONCOLOGY ORD ERABLES Final Result Performing Organization Address City/[facility]/ZIP Co de Phone Number SHEN * RAD ONC ARIA SESSION SUMMARY (10/02/2024 10:43 AM CDT) Course Name C1_Prostate ARIA Course Plan Date 08/24/2024 12:32 PM ARIA Elapsed Days 25 ARIA Treatment Start Date 09/07/2024 ARIA Treatment Site [id number] ARIA Dose Given To Date (cGy) 5,000 ARIA Session Dosage Given (cGy) 250 ARIA Plan ID Pelvic Nodes ARIA Fractions Treated 20 ARIA Prescribed Dose Per Fraction (cGy) 250 ARIA Prescribed Total Dose (cGy) 6,250 ARIA 10/02/2024 10:4 3 AM CDT us Not In File Miscellaneous RADIATION ONCOLOGY ORD ERABLES Final Result SHEN * RAD ONC ARIA SESSION SUMMARY (10/01/2024 3:37 PM CDT) Course Name C1_Prostate ARIA Course Plan Date 08/24/2024 12:32 PM ARIA Elapsed Days 24 ARIA Treatment Start Date 09/07/2024 ARIA Treatment Site [id number] ARIA Dose Given To Date (cGy) 4,750 ARIA Session Dosage Given (cGy) 250 ARIA Plan ID Pelvic Nodes ARIA Fractions Treated 19 ARIA Prescribed Dose Per Fraction (cGy) 250 ARIA Prescribed Total Dose (cGy) 6,250 ARIA 10/01/2024 3:37 PM CDT us Not In File Miscellaneous RADIATION ONCOLOGY ORD ERABLES Final Result ARIA * RAD ONC ARIA SESSION SUMMARY (09/30/2024 9:55 AM CDT) Course Name C1_Prostate _2024 ARIA Course Plan Date 08/24/2024 12:32 PM ARIA Elapsed Days 23 ARIA Treatment Start Date 09/07/2024 ARIA Treatment Site [id number] ARIA Dose Given To Date (cGy) 4,500 ARIA Session Dosage Given (cGy) 250 ARIA Plan ID Pelvic Nodes ARIA Fractions Treated 18 ARIA Prescribed Dose Per Fraction (cGy) 250 ARIA Prescribed Total Dose (cGy) 6,250 ARIA 09/30/2024 9:55 AM CDT us Not In File Miscellaneous RADIATION ONCOLOGY ORD ERABLES Final Result ARIA * RAD ONC ARIA SESSION SUMMARY (09/29/2024 2:44 PM CDT) Course Name C1_Prostate _2024 ARIA Course Plan Date 08/24/2024 12:32 PM ARIA Elapsed Days 22 ARIA Treatment Start Date 09/07/2024 ARIA Treatment Site [id number] ARIA Dose Given To Date (cGy) 4,250 ARIA Session Dosage Given (cGy) 250 ARIA Plan ID Pelvic Nodes ARIA Fractions Treated 17 ARIA Prescribed Dose Per Fraction (cGy) 250 ARIA Prescribed Total Dose (cGy) 6,250 ARIA 09/29/2024 2:44 PM CDT us Not In File Miscellaneous RADIATION ONCOLOGY ORD ERABLES Final Result PARKERA * RAD ONC ARIA SESSION SUMMARY (09/28/2024 9:34 AM CDT) Course Name C1_Prostate ARIA Course Plan Date 08/24/2024 12:32 PM ARIA Elapsed Days 21 ARIA Treatment Start Date 09/07/2024 ARIA Treatment Site [id number] ARIA Dose Given To Date (cGy) 4,000 ARIA Session Dosage Given (cGy) 250 ARIA Plan ID Pelvic Nodes ARIA Fractions Treated 16 ARIA Prescribed Dose Per Fraction (cGy) 250 ARIA Prescribed Total Dose (cGy) 6,250 ARIA 09/28/2024 9:34 AM CDT us Not In File Miscellaneous RADIATION ONCOLOGY ORD ERABLES Final Result ARIA * RAD ONC ARIA SESSION SUMMARY (09/25/2024 10:48 AM CDT) Course Name C1_Prostate ARIA Course Plan Date 08/24/2024 12:32 PM ARIA Elapsed Days 18 ARIA Treatment Start Date 09/07/2024 ARIA Treatment Site [id number] ARIA Dose Given To Date (cGy) 3,750 ARIA Session Dosage Given (cGy) 250 ARIA Plan ID Pelvic Nodes ARIA Fractions Treated 15 ARIA Prescribed Dose Per Fraction (cGy) 250 ARIA Prescribed Total Dose (cGy) 6,250 ARIA 09/25/2024 10:4 8 AM CDT us Not In File Miscellaneous RADIATION ONCOLOGY ORD ERABLES Final Result ARIA * RAD ONC ARIA SESSION SUMMARY (09/24/2024 10:35 AM CDT) Course Name C1_Prostate ARIA Course Plan Date 08/24/2024 12:32 PM ARIA Elapsed Days 17 ARIA Treatment Start Date 09/07/2024 ARIA Treatment Site [id number] ARIA Dose Given To Date (cGy) 3,500 ARIA Session Dosage Given (cGy) 250 ARIA Plan ID Pelvic Nodes ARIA Fractions Treated 14 ARIA Prescribed Dose Per Fraction (cGy) 250 ARIA Prescribed Total Dose (cGy) 6,250 ARIA 09/24/2024 10:3 5 AM CDT us Not In File Miscellaneous RADIATION ONCOLOGY ORD ERABLES Final Result SHEN * RAD ONC ARIA SESSION SUMMARY (09/23/2024 7:37 AM CDT) Course Name C1_Prostate ARIA Course Plan Date 08/24/2024 12:32 PM ARIA Elapsed Days 16 ARIA Treatment Start Date 09/07/2024 ARIA Treatment Site PTV_7000 ARIA Dose Given To Date (cGy) 3,250 ARIA Session Dosage Given (cGy) 250 ARIA Plan ID Pelvic Nodes ARIA Fractions Treated 13 ARIA Prescribed Dose Per Fraction (cGy) 250 ARIA Prescribed Total Dose (cGy) 6,250 ARIA 09/23/2024 7:37 AM CDT us Not In File Miscellaneous RADIATION ONCOLOGY ORD ERABLES Final Result SHEN * RAD ONC ARIA SESSION SUMMARY (09/22/2024 10:54 AM CDT) Course Name C1_Prostate ARIA Course Plan Date 08/24/2024 12:32 PM ARIA Elapsed Days 15 ARIA Treatment Start Date 09/07/2024 ARIA Treatment Site [id number]_7000 ARIA Dose Given To Date (cGy) 3,000 ARIA Session Dosage Given (cGy) 250 ARIA Plan ID Pelvic Nodes ARIA Fractions Treated 12 ARIA Prescribed Dose Per Fraction (cGy) 250 ARIA Prescribed Total Dose (cGy) 6,250 ARIA 09/22/2024 10:5 4 AM CDT us Not In File Miscellaneous RADIATION ONCOLOGY ORD ERABLES Final Result SHEN * RAD ONC ARIA SESSION SUMMARY (09/21/2024 11:07 AM CDT) Course Name C1_Prostate _2024 ARIA Course Plan Date 08/24/2024 12:32 PM ARIA Elapsed Days 14 ARIA Treatment Start Date 09/07/2024 ARIA Treatment Site [id number]_7000 ARIA Dose Given To Date (cGy) 2,750 ARIA Session Dosage Given (cGy) 250 ARIA Plan ID Pelvic Nodes ARIA Fractions Treated 11 ARIA Prescribed Dose Per Fraction (cGy) 250 ARIA Prescribed Total Dose (cGy) 6,250 ARIA 09/21/2024 11:0 7 AM CDT us Not In File Miscellaneous RADIATION ONCOLOGY ORD ERABLES Final Result ARIA * RAD ONC ARIA SESSION SUMMARY (09/18/2024 10:16 AM CDT) Course Name C1_Prostate _2024 ARIA Course Plan Date 08/24/2024 12:32 PM ARIA Elapsed Days 11 ARIA Treatment Start Date 09/07/2024 ARIA Treatment Site [id number]_7000 ARIA Dose Given To Date (cGy) 2,500 ARIA Session Dosage Given (cGy) 250 ARIA Plan ID Pelvic Nodes ARIA Fractions Treated 10 ARIA Prescribed Dose Per Fraction (cGy) 250 ARIA Prescribed Total Dose (cGy) 6,250 ARIA 09/18/2024 10:1 6 AM CDT us Not In File Miscellaneous RADIATION ONCOLOGY ORD ERABLES Final Result ARIA * RAD ONC ARIA SESSION SUMMARY (09/17/2024 9:40 AM CDT) Course Name C1_Prostate _2024 ARIA Course Plan Date 08/24/2024 12:32 PM ARIA Elapsed Days 10 ARIA Treatment Start Date 09/07/2024 ARIA Treatment Site [id number]_7000 ARIA Dose Given To Date (cGy) 2,250 ARIA Session Dosage Given (cGy) 250 ARIA Plan ID Pelvic Nodes ARIA Fractions Treated 9 ARIA Prescribed Dose Per Fraction (cGy) 250 ARIA Prescribed Total Dose (cGy) 6,250 ARIA 09/17/2024 9:40 AM CDT us Not In File Miscellaneous RADIATION ONCOLOGY ORD ERABLES Final Result Performing Organization Address [facility] Co de Phone Number ARIA * RAD ONC ARIA SESSION SUMMARY (09/16/2024 9:58 AM CDT) Course Name C1_Prostate ARIA Course Plan Date 08/24/2024 12:32 PM ARIA Elapsed Days 9 ARIA Treatment Start Date 09/07/2024 ARIA Treatment Site [id number]_7000 ARIA Dose Given To Date (cGy) 2,000 ARIA Session Dosage Given (cGy) 250 ARIA Plan ID Pelvic Nodes ARIA Fractions Treated 8 ARIA Prescribed Dose Per Fraction (cGy) 250 ARIA Prescribed Total Dose (cGy) 6,250 ARIA 09/16/2024 9:58 AM CDT us Not In File Miscellaneous RADIATION ONCOLOGY ORD ERABLES Final Result Performing Organization Address City/State/[facility] Co de Phone Number ARIA * RAD ONC ARIA SESSION SUMMARY (09/15/2024 11:24 AM CDT) Course Name C1_Prostate ARIA Course Plan Date 08/24/2024 12:32 PM ARIA Elapsed Days 8 ARIA Treatment Start Date 09/07/2024 ARIA Treatment Site [id number]_7000 ARIA Dose Given To Date (cGy) 1,750 ARIA Session Dosage Given (cGy) 250 ARIA Plan ID Pelvic Nodes ARIA Fractions Treated 7 ARIA Prescribed Dose Per Fraction (cGy) 250 ARIA Prescribed Total Dose (cGy) 6,250 ARIA 09/15/2024 11:2 4 AM CDT us Not In File Miscellaneous RADIATION ONCOLOGY ORD ERABLES Final Result Performing Organization Address City/[facility]/ZIP Co de Phone Number ARIA * RAD ONC ARIA SESSION SUMMARY (09/14/2024 9:42 AM CDT) Course Name C1_Prostate _2024 ARIA Course Plan Date 08/24/2024 12:32 PM ARIA Elapsed Days 7 ARIA Treatment Start Date 09/07/2024 ARIA Treatment Site [id number]_7000 ARIA Dose Given To Date (cGy) 1,500 ARIA Session Dosage Given (cGy) 250 ARIA Plan ID Pelvic Nodes ARIA Fractions Treated 6 ARIA Prescribed Dose Per Fraction (cGy) 250 ARIA Prescribed Total Dose (cGy) 6,250 ARIA 09/14/2024 9:42 AM CDT us Not In File Miscellaneous RADIATION ONCOLOGY ORD ERABLES Final Result Performing Organization Address [facility] Co de Phone Number ARIA * RAD ONC ARIA SESSION SUMMARY (09/11/2024 11:08 AM CDT) Course Name C1_Prostate _2024 ARIA Course Plan Date 08/24/2024 12:32 PM ARIA Elapsed Days 4 ARIA Treatment Start Date 09/07/2024 ARIA Treatment Site [id number]_7000 ARIA Dose Given To Date (cGy) 1,250 ARIA Session Dosage Given (cGy) 250 ARIA Plan ID Pelvic Nodes ARIA Fractions Treated 5 ARIA Prescribed Dose Per Fraction (cGy) 250 ARIA Prescribed Total Dose (cGy) 6,250 ARIA 09/11/2024 11:0 8 AM CDT us Not In File Miscellaneous RADIATION ONCOLOGY ORD ERABLES Final Result ARIA * RAD ONC ARIA SESSION SUMMARY (09/10/2024 10:28 AM CDT) Course Name C1_Prostate _2024 ARIA Course Plan Date 08/24/2024 12:32 PM ARIA Elapsed Days 3 ARIA Treatment Start Date 09/07/2024 ARIA Treatment Site [id number]_7000 ARIA Dose Given To Date (cGy) 1,000 ARIA Session Dosage Given (cGy) 250 ARIA Plan ID Pelvic Nodes ARIA Fractions Treated 4 ARIA Prescribed Dose Per Fraction (cGy) 250 ARIA Prescribed Total Dose (cGy) 6,250 ARIA 09/10/2024 10:2 8 AM CDT us Not In File Miscellaneous RADIATION ONCOLOGY ORD ERABLES Final Result Performing Organization Address [facility] Co de Phone Number ARIA * RAD ONC ARIA SESSION SUMMARY (09/09/2024 9:48 AM CDT) Course Name C1_Prostate ARIA Course Plan Date 08/24/2024 12:32 PM ARIA Elapsed Days 2 ARIA Treatment Start Date 09/07/2024 ARIA Treatment Site [id number]_7000 ARIA Dose Given To Date (cGy) 750 ARIA Session Dosage Given (cGy) 250 ARIA Plan ID Pelvic Nodes ARIA Fractions Treated 3 ARIA Prescribed Dose Per Fraction (cGy) 250 ARIA Prescribed Total Dose (cGy) 6,250 ARIA 09/09/2024 9:48 AM CDT us Not In File Miscellaneous RADIATION ONCOLOGY ORD ERABLES Final Result ARIA * RAD ONC ARIA SESSION SUMMARY (09/08/2024 10:46 AM CDT) Course Name C1_Prostate ARIA Course Plan Date 08/24/2024 12:32 PM ARIA Elapsed Days 1 ARIA Treatment Start Date 09/07/2024 ARIA Treatment Site [id number]_7000 ARIA Dose Given To Date (cGy) 500 ARIA Session Dosage Given (cGy) 250 ARIA Plan ID Pelvic Nodes ARIA Fractions Treated 2 ARIA Prescribed Dose Per Fraction (cGy) 250 ARIA Prescribed Total Dose (cGy) 6,250 ARIA 09/08/2024 10:4 6 AM CDT us Not In File Miscellaneous RADIATION ONCOLOGY ORD ERABLES Final Result Performing Organization Address City/[facility] Co de Phone Number SHEN * RAD ONC ARIA SESSION SUMMARY (09/07/2024 10:50 AM CDT) Course Name C1_Prostate _2024 ARIA Course Plan Date 08/24/2024 12:32 PM ARIA Elapsed Days 0 ARIA Treatment Start Date 09/07/2024 ARIA Treatment Site [id number]_7000 ARIA Dose Given To Date (cGy) 250 ARIA Session Dosage Given (cGy) 250 ARIA Plan ID Pelvic Nodes ARIA Fractions Treated 1 ARIA Prescribed Dose Per Fraction (cGy) 250 ARIA Prescribed Total Dose (cGy) 6,250 ARIA 09/07/2024 10:5 0 AM CDT us Not In File Miscellaneous RADIATION ONCOLOGY ORD ERABLES Final Result Performing Organization Address [facility] Co de Phone Number SHEN * eGFR (08/27/2024 9:25 AM 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) eGFR 75 >=60 mL/min/1. 73 m2 Comment: Interpretive Data Reference Interval Normal >/= 90 mL/min/1.73m2 Mildly decreased* 60 - 89 mL/min/1.73m2 Mildly to moderately decreased 45 - 59 mL/min/1.73m2 Moderately to severely decreased 30 - 44 mL/min/1.73m2 Severely decreased 15 - 29 mL/min/1.73m2 Kidney Failure < 15 mL/min/1.73m2 *Relative to young adult level Estimated glomerular filtration rate is determined by the 2020 CKD-EPI equation recommended by the National Kidney Foundation (A Unifying Approach to GFR Estimation: Recommendations of the NKF-ASK Task Force on Reassessing the Inclusion of Race in Diagnosing Kidney Disease, JOEYSN 2020). The CKD-EPI equation should not be used for patients with unstable renal function and has not been validated in children and those over 70. Current interpretive data was last reviewed 2021. Testing performed by: [facility], [address] [place] [address] Blood 08/27/2024 9:25 AM 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 08/27/2024 9:58 AM 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 us Aleksander Jackson MD LAB BLOOD ORDERABLES Fin al Result [facility] [address] [place] [address] * Differential, auto (08/27/2024 9:25 AM 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) Neutrophil abs 4.3 1.5 - 6.5 K/cumm Comment:Testing performed by : [facility], [facility], [address] [place] [address] Imm gran abs 0.0 0.0 - 0.1 K/cumm CERNER BJWCH Comment:Testing performed by : [facility], [facility], [address] [place] [address] Lymphocyte abs 1.2 0.8 - 3.3 K/cumm CERNER BJWCH Comment:Testing performed by : [facility], [facility], [address] [place] [address] Monocyte abs 0.6 0.2 - 0.8 K/cumm CERNER BJWCH Comment:Testing performed by : [facility], [address] [place] [address] Eosinophil abs 0.0 0.0 - 0.5 K/cumm CERNER BJWCH Comment:Testing performed by : [facility], [facility], [address] [place] [address] Basophil abs 0.1 0.0 - 0.1 K/cumm CERNER BJWCH Comment:Testing performed by : [facility], [facility], [address] [place] [address] Neutrophil pct 70.2 % CERNER BJWCH Comment: Interpretive Data Percent cell count reference ranges are not reported, since discordance with absolute values may lead to misinterpretation of CBC data. Current Interpretive Data was last revised on 2017. Testing performed by: [facility], [facility], [address] [place] [address] Imm gran pct 0.3 % CERNER BJWCH Comment: Interpretive Data Percent cell count reference ranges are not reported, since discordance with absolute values may lead to misinterpretation of CBC data. Current Interpretive Data was last revised on 2017. Testing performed by: [facility], [facility], [address] [place] [address] Lymphocyte pct 19.4 % CERNER BJWCH Comment: Interpretive Data Percent cell count reference ranges are not reported, since discordance with absolute values may lead to misinterpretation of CBC data. Current Interpretive Data was last revised on 2017. Testing performed by: [facility], [facility], [address] [place] [address] Monocyte pct 9.0 % CERNER BJWCH Comment: Interpretive Data Percent cell count reference ranges are not reported, since discordance with absolute values may lead to misinterpretation of CBC data. Current Interpretive Data was last revised on 2017. Testing performed by: [facility], [facility], [address] [place] [address] Eosinophil pct 0.3 % CERNER BJWCH Comment: Interpretive Data Percent cell count reference ranges are not reported, since discordance with absolute values may lead to misinterpretation of CBC data. Current Interpretive Data was last revised on 2017. Testing performed by: [facility], [facility], [address] [place] [address] Basophil pct 0.8 % CERNER BJWCH Comment: Interpretive Data Percent cell count reference ranges are not reported, since discordance with absolute values may lead to misinterpretation of CBC data. Current Interpretive Data was last revised on 2017. Testing performed by: [facility], [facility], [address] [place] [address] Blood 08/27/2024 9:25 AM 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 08/27/2024 9:27 AM 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 Aleksander Jackson MD LAB BLOOD ORDERABLES Fin al Result Performing Organization Address City/[facility] Co de Phone Number GREG STEVENSCH [address] [facility]. [facility] [place] [address] * Thyroid Function Holloway (08/27/2024 9:25 AM 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) TSH 3.10 0.30 - 4.20 mcIUnit/mL Comment:Testing performed by : [facility], [address] [facility] [place] [address] Blood 08/27/2024 9:25 AM 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 08/27/2024 9:58 AM 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 Aleksander Jackson MD LAB BLOOD ORDERABLES Fin al Result Performing Organization Address [facility] de Phone Number GREG STEVENSCH [address] [facility]. [facility] [place] [address] * CBC with auto differential (08/27/2024 9:25 AM 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) WBC 6.1 3.8 - 9.9 K/cumm Comment:Testing performed by : [facility], [facility] [address], [address] [place] [address] Hgb 14.3 13.0 - 17.5 g/dL GREG SPAIN Comment:Testing performed by : [facility], [facility], [address] [place] [address] Hct 42.1 38.9 - 50.3 % GREG SPAIN Comment:Testing performed by : [facility], [facility], [address] [place] [address] Plt 163 150 - 400 K/cumm [facility] Comment:Testing performed by : [facility], [facility], [address] [place] [address] MPV 10.4 9.1 - 12.3 fL [facility] Comment:Testing performed by : [place] [address], [address] [place] [address] RBC 4.53 4.30 - 5.80 M/cumm CERJUAN LUIS [facility] Comment:Testing performed by : [facility], [facility], [address] [place] [address] MCV 93 81 - 96 fL [facility] Comment:Testing performed by : [place] [address], [address] [place] [address] MCH 31.6 27.1 - 33.3 pg [facility] Comment:Testing performed by : [place] [address], [address] [place] [address] MCHC 34.0 32.3 - 35.7 g/dL [facility] Comment:Testing performed by : [place] [address], [address] [place] [address] RDW CV 13.0 11.1 - 14.9 % [facility] Comment:Testing performed by : [address] [place] [address] RDW SD 44.2 35.7 - 48.1 fL [facility] Comment:Testing performed by : [facility] 2, [address] [place] [address] Blood 08/27/2024 9:25 AM 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 08/27/2024 9:27 AM 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 us Aleksander Jackson MD LAB BLOOD ORDERABLES Fin al Result [facility] [address] [facility] [place] [address] * (ABNORMAL) Total testosterone (08/27/2024 9:25 AM 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) Testosterone <2.50(L) 193.00 - 740.00 ng/dL Comment:Testing performed by : [facility], [facility], [place]., [address] Blood 08/27/2024 9:25 AM 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 08/27/2024 5:22 PM 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 Aleksander Jackson MD LAB BLOOD ORDERABLES Fin al Result [facility] [address] [employer]. [facility] [place] [address] * PSA diagnostic (08/27/2024 9:25 AM 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) Pathologist [facility] PSA-Total <0.10 <=5.40 ng/mL Comment: Interpretive Data AGE SEX REFERENCE INTERVAL 0 minutes-150 years Female None 0 minutes-49 years Male None 50-59 years Male 0-3.90 60-69 years Male 0-5.40 70-79 years Male 0-6.20 80-150 years Male 0-6.20 The Patricia PSA Total assay procedure was used. Results from different manufacturers or methods may not be comparable. Serial testing should be performed using the same method. Current interpretive data last revised 21. Testing performed by: [facility], [address] [facility], [place] [address] Blood 08/27/2024 9:25 AM 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 08/27/2024 9:58 AM 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 Aleksander Jackson MD LAB BLOOD ORDERABLES Fin al Result [facility]REG BJW[facility] [address] [facility]. [facility] [place] [address] * Magnesium (08/27/2024 9:25 AM 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) Magnesium 2.3 1.4 - 2.5 mg/dL Comment: Reference Data. Reference values for Labor and Delivery patients: < or = 0.7 mg/dL to > or = 7.3 mg/dL Current reference data last reviewd on 03/23/2015. Testing performed by: [facility], [address] [place] [address] Blood 08/27/2024 9:25 AM 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 08/27/2024 9:58 AM 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 us Aleksander Jackson MD LAB BLOOD ORDERABLES Fin al Result [facility] [address] [place] [address] * Comprehensive metabolic panel (08/27/2024 9:25 AM 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) Sodium 141 135 - 145 mmol/L Comment:Testing performed by : [facility], [address] [place] [address] Potassium, pl 4.4 3.3 - 4.9 mmol/L CERNER BJWCH Comment:Testing performed by : [facility], [address] [place] [address] Chloride 104 97 - 110 mmol/L CERJUAN LUIS BJWCH Comment:Testing performed by : [facility], [address] [place] [address] CO2 27 22 - 32 mmol/L CERNER BJWCH Comment:Testing performed by : [facility], [address] [place] [address] Anion gap 10 2 - 15 mmol/L CERJUAN LUIS BJWCH Comment:Testing performed by : [facility], [address] [place] [address] BUN 25 6 - 25 mg/dL CERJUAN LUIS BJWCH Comment:Testing performed by : [facility], [address] [place] [address] Creatinine 1.10 0.80 - 1.30 mg/dL CERJUAN LUIS BJWCH Comment:Testing performed by : [facility], [address], [place] [address] Glucose 100 70 - 199 mg/dL CERNER BJWCH Comment: Interpretive Data Fasting glucose >/= 126 mg/dl is diagnostic for diabetes. Fasting is defined as no caloric intake for at least 8 hours. Fasting glucose between 100 mg/dl to 125 mg/dl is diagnostic of prediabetes. In a patient with classic symptoms of hyperglycemia or hyperglycemic crisis, a random glucose >/= 200 mg/dl is diagnostic for diabetes. In the absence of unequivocal hyperglycemia, results should be confirmed by repeat testing. The classification and Diagnosis of Diabetes Diabetes Care 2021; 46: S19-S40. Current interpretive data was last revised 2022. Testing performed by: [facility], [address], [place] [address] Calcium 9.8 8.5 - 10.3 mg/dL CERNER BJWCH Comment:Testing performed by : [facility], [address], [place] [address] Bilirubin, total 0.7 0.1 - 1.2 mg/dL CERNER BJWCH Comment:Testing performed by : [facility], [address], [place] [address] Protein, pl 7.5 6.5 - 8.5 g/dL CERNER BJWCH Comment:Testing performed by : [facility], [address], [place] [address] Albumin 4.6 3.5 - 5.0 g/dL CERNER BJWCH Comment:Testing performed by : [facility], [address], [place] [address] Alk phos 121 40 - 130 Units/L CERNER BJWCH Comment:Testing performed by : [facility], [address], [place] [address] ALT 24 7 - 55 Units/L CERNER BJWCH Comment:Testing performed by : [facility], [address], [place] [address] AST 22 10 - 50 Units/L CERNER BJWCH Comment:Testing performed by : [facility], [address], [place] [address] Blood 08/27/2024 9:25 AM 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 08/27/2024 9:58 AM 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 Aleksander Jackson MD LAB BLOOD ORDERABLES Fin al Result [facility] [address] [facility]. [place] [address] * PET/CT Prostate Cancer PSMA Skull to Thigh (08/13/2024 2:43 PM 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) Anatomical Region Laterality Modality N/A Positron Emissio n Tomography (PET) 08/13/2024 5:22 PM 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 Impressions 08/13/2024 5:29 PM 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 1. Focal tracer avidity of the prostate consistent with biopsy-proven prostate cancer. Interval decrease in size and tracer avidity consistent with expected treatment response. 2. Moderate tracer avidity in the left transverse process of T5 with adjacent T5/T6 soft tissue lesion is atypical for metastasis given interval stability and appearance. Differential includes nerve sheath tumor, paraganglioma, schwannoma, or atypical metastatic disease. 3. L3 vertebral body osseous lesion noted on MR 07/09/2024 is not tracer avid, favoring a benign lesion. 4. Stable left iliac lymph nodes at the upper limit of normal remain non-tracer avid, favoring a benign node. Dictated by: Floyd Avelar M.D. The radiology attending physician has personally reviewed this study, and had reviewed and/or edited this written report and agrees with it. Electronically signed by: Floyd Maldonado DO Narrative 08/13/2024 5:29 PM 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 EXAMINATION: PSMA-PET/CT DATE OF STUDY: 08/13/2024 SCANNER: RADIOPHARMACEUTICAL: 2.3 mCi F-18 DCFPyL (Piflufolastat) i.v. Injection site: Right antecubital fossa HISTORY: 63-year-old man with prostate cancer diagnosed on 02/20/2024. Prostate biopsy 02/20/2024 showed prostate cancer on 6/12 cores with Sturgeon 4+3. Status post radiation therapy (05/12/2024). Patient now undergoing further workup. Pathology was read, reviewed and upstaged from 4+3 to 4+5. The most recently obtained PSA on 07/23/2024 is 0.14 ng/mL. The study is requested for restaging of documented biochemically recurrent prostate cancer. Subsequent treatment strategy. TECHNIQUE: After intravenous administration of tracer, noncontrast CT images were obtained for attenuation correction and for fusion with emission PET images to allow for anatomical localization of PET findings. Emission PET images were then obtained. The study was interpreted on the [employer] workstation. The total scanned area was mid thighs to skull vertex. Images of the body were obtained starting 85 minutes after injection of tracer. REFERENCE TISSUE MAXIMUM SUVs: Parotid gland 20.3; Liver 7.9; Blood pool 2.7 Focal PSMA tracer uptake is graded as follows: * Faint: above background to blood pool * Mild: above blood pool to liver * Moderate: above liver to salivary glands * Intense: similar to or above salivary glands COMPARISON: PET/CT 03/20/2024 FINDINGS: Prostate/Prostate bed: Pathologic, mild focal tracer uptake at the prosthetic base with SUV max 5.1, decreased in size in intensity from prior when it SUV max of 11.1 (03/20/2024) consistent with response to radiation therapy. Regional lymph nodes: No abnormal tracer uptake seen. Left external iliac lymph nodes remain at the upper limit of normal in size and remain non-tracer avid (image [id number]). Extra-pelvic lymph nodes: No abnormal tracer uptake seen. Bone: Focal moderate tracer avidity within the left transverse process of T5 (image [id number]) and adjacent T5/T6 soft tissue lesion. This finding is atypical for metastatic disease given interval stability and appearance. Differential includes nerve sheath tumor, paraganglioma, schwannoma, and atypical metastatic. L3 vertebral body osseous lesion noted on MR outside consult 07/09/2024 is not tracer avid. Visceral: No abnormal tracer uptake seen. Additional CT findings: Bilateral fat-containing inguinal hernias. Procedure Note Floyd Maldonado, - 08/13/2024 EXAMINATION: PSMA-PET/CT DATE OF STUDY: 08/13/2024 SCANNER: RADIOPHARMACEUTICAL: 2.3 mCi F-18 DCFPyL (Piflufolastat) i.v. Injection site: Right antecubital fossa HISTORY: 63-year-old man with prostate cancer diagnosed on 02/20/2024. Prostate biopsy 02/20/2024 showed prostate cancer on 6/12 cores with Sturgeon 4+3. Status post radiation therapy (05/12/2024). Patient now undergoing further workup. Pathology was read, reviewed and upstaged from 4+3 to 4+5. The most recently obtained PSA on 07/23/2024 is 0.14 ng/mL. The study is requested for restaging of documented biochemically recurrent prostate cancer. Subsequent treatment strategy. TECHNIQUE: After intravenous administration of tracer, noncontrast CT images were obtained for attenuation correction and for fusion with emission PET images to allow for anatomical localization of PET findings. Emission PET images were then obtained. The study was interpreted on the [employer] workstation. The total scanned area was mid thighs to skull vertex. Images of the body were obtained starting 85 minutes after injection of tracer. REFERENCE TISSUE MAXIMUM SUVs: Parotid gland 20.3; Liver 7.9; Blood pool 2.7 Focal PSMA tracer uptake is graded as follows: * Faint: above background to blood pool * Mild: above blood pool to liver * Moderate: above liver to salivary glands * Intense: similar to or above salivary glands COMPARISON: PET/CT 03/20/2024 FINDINGS: Prostate/Prostate bed: Pathologic, mild focal tracer uptake at the prosthetic base with SUV max 5.1, decreased in size in intensity from prior when it SUV max of 11.1 (03/20/2024) consistent with response to radiation therapy. Regional lymph nodes: No abnormal tracer uptake seen. Left external iliac lymph nodes remain at the upper limit of normal in size and remain non-tracer avid (image [id number]). Extra-pelvic lymph nodes: No abnormal tracer uptake seen. Bone: Focal moderate tracer avidity within the left transverse process of T5 (image [id number]) and adjacent T5/T6 soft tissue lesion. This finding is atypical for metastatic disease given interval stability and appearance. Differential includes nerve sheath tumor, paraganglioma, schwannoma, and atypical metastatic. L3 vertebral body osseous lesion noted on MR outside consult 07/09/2024 is not tracer avid. Visceral: No abnormal tracer uptake seen. Additional CT findings: Bilateral fat-containing inguinal hernias. IMPRESSION: 1. Focal tracer avidity of the prostate consistent with biopsy-proven prostate cancer. Interval decrease in size and tracer avidity consistent with expected treatment response. 2. Moderate tracer avidity in the left transverse process of T5 with adjacent T5/T6 soft tissue lesion is atypical for metastasis given interval stability and appearance. Differential includes nerve sheath tumor, paraganglioma, schwannoma, or atypical metastatic disease. 3. L3 vertebral body osseous lesion noted on MR 07/09/2024 is not tracer avid, favoring a benign lesion. 4. Stable left iliac lymph nodes at the upper limit of normal remain non-tracer avid, favoring a benign node. Dictated by: Floyd Avelar M.D. The radiology attending physician has personally reviewed this study, and had reviewed and/or edited this written report and agrees with it. Electronically signed by: Floyd Maldonado DO Norma Mccarty MD IMG PET PROCEDURES Fi nal Result * POCT hemoglobin A1c (05/27/2024 8:39 AM 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) Hemoglobin A1C, POC 5.5 4.0 - 5.6 % Blood 05/27/2024 8:39 AM 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 J Carlos Carmichael MD POINT OF CARE TEST ORDERABLES Final Result * POCT lipid panel (12/23/2023 8:40 AM CDT) Cholesterol, POC 101 mg/dL HDL, POC 30 mg/dL Triglycerides, POC 111 mg/dL LDL Cholesterol POC 49 mg/dL Chol/HDL Ratio, POC 3.4 Non-HDL Cholesterol, POC 71 mg/dL Cholesterol Total, POC 101 mg/dL Capillary blood 12/23/2023 8 :40 AM CDT J Carlos Carmichael MD POINT OF CARE TEST ORDERABLES Final Result * Colonoscopy (07/15/2020) Anatomical Region Laterality Modality Other Narrative 07/15/2020 Pt reports he has done in 2020, repeat in5 years Malik Marquez MD ENDOSCOPY PROCEDURES Unique l Result from Last 3 Months or Most Recently Relevant to Health Maintenance Insurance [employer] Advance Directives For more information, please contact: [phone] * Full Code (Latest Code Status on File) Date Activated Date Inactivated Comments 12/24/2018 6:53 AM 12/24/2018 2:20 PM * Full Code Date Activated Date Inactivated Comments 12/24/2018 6:53 AM 12/24/2018 6:53 AM Care Teams Picc Nurse Relationship Specialty Start Date End Date J Carlos Carmichael MD [address] [facility] [address] [place] [address] PCP - General 05/22/17 Norma Mccarty MD [address] [facility] [address] [place] [address] Radiation Oncologist Radiation Oncology 06/16/24 Aleksander Jackson MD [address] [place] [address] [address] Referring Physician Medical Oncology 06/16/24
--- OUTSIDE RECORDS SUMMARY | 2024-10-29 08:32 | XMS_ITS ---
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): Follow up with oncology Family history of [...] (04/27/2020): Added automatically from request for surgery [id number] Idiopathic chronic gout without tophus 0 Essential hypertension 03/15/2020 Benign prostatic hyperplasia with lower urinary tract symptoms 03/15/2020 Abdominal pain 02/24/2020 Venous insufficiency 01/28/2020 Overview (01/28/2020): Added automatically from request for surgery [id number] Traumatic open wound of left lower leg with infe ction 07/13/2019 Venous stasis of both lower extremities 07/05/19 Edema of both lower extremities 06/02/2019 Wound of left leg 06/02/2019 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 Overview (12/04/2018): Added automatically from request for surgery [id number] Neurofibromatosis (CMS/HCC) 08/21/2018 Neurofibroma 01/02/2017 Sleep apnea, unspecified 11/16/2015 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 Postlaminectomy syndrome of thoracic region 06/25 Diabetes mellitus 10/22/2011 Obesity 10/22/2011 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 Current Treatment and Therapy Plans Abiraterone / PredniSONE 28 Day Cycles* Plan Start Date:07/23/2024 Plan Provider:Aleksander Jackson MD Linked Problems Prostate cancer (HCC) Treatment Medications Current Day (Day 1, Cycle 2 - Planned for 08/27/2024) abiraterone (ZYTIGA) abiraterone (ZYTIGA) 250 mg tablet Leuprolide Every 3 Months - Prostate* Plan Start Date:07/02/2024 Plan Provider:Aleksander Jackson MD Linked Problems Prostate cancer (HCC) Treatment Medications Current Day (Day 1 , Cycle 3 - Planned for 01/07/2025) Next Day (Day 1, Cycle 4 - Planned for 04/01/2025) leuprolide (3 month) (LUPRON) leuprolide (3 month) (LUPRON) injection 22.5 mg leuprolide (3 month) (LUPRON) injection 22.5 mg Other Current Plans 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 No medications scheduled. Past Treatment and Therapy Plans Oncology Treatment (2) Plan Name Start Date Discontinue Date Treatment Medications Discontinue Reason Plan Provider Cycles Degarelix 28 Day Cycles - Prostate 06/26/2024 07/02/2024 degarelix (FIRMAGON) Provider Discretion Aleksander Jackson MD 1 of 12 cycles started Radiation Treatments * Course [id number]/07/2024 - 10/14/2024 Treatment Period Energy Fraction Dose Fractions Total Dose Plans Planned Prost Bst 10/12/2024 - 10/14/2024 250 3 / 750 Pelvic Nodes 09/07/2024 - 10/09/2024 250 25 / 6,250 Reference Points Delivered [id number] 09/07/2024 - 10/14/2024 7,000 Lifetime Dose Tracking * Chemical Lifetime Dose Automatic Entry Manual Entr y DLP 4,093 mGycm 4,093 mGycm 0 mGycm
--- OUTSIDE RECORDS SUMMARY | 2024-10-29 08:32 | XMS_ITS | Referral Summary ---
Author Organization [facility] Address [address] [place] [address] Care Team Providers Care Key Account Executive Name Role Phone J Carlos Carmichael MD Primary Care Provider [phone] Norma Mccarty MD Unavailable Aleksander Jackson MD Unavailable [phone] Encounters Date Type Department Care Team Description 10/21/2024 Telephone [facility] Radiation Oncology [address] [facility] [place] [address] China Pete, RN 10/21/2024 Telephone [facility] Radiation Oncology [address] [facility] [place] [address] China Pete, RN 10/15/2024 10:30 AM CDT Office Visit [facility] Oncology [address] [place] [address] [address] [place] [address] Aleksander Jackson MD Prostate cancer (HCC) (Primary Dx) 10/15/2024 9:30 AM CDT Lab [facility] at [address] [address] Prostate cancer (HCC) 10/15/2024 11:00 AM CDT Infusion [facility] at [facility] [address] [place] [address] Prostate cancer (HCC) (Primary Dx) 10/14/2024 Completion of Therapy [facility] Radiation Oncology [address] [place] [address] Norma Mccarty MD 10/14/[address] [facility] Radiation Oncology [address] [place] [address] China Pete RN 10/14/2024 Orders Only RAD ONC TREATMENTS Miscellaneous, Not In File 10/14/2024 10:19 AM CDT - 10/14/2024 11:59 PM CDT Hospital Encounter [facility] Radiation Oncology [address] [place] [address] Norma Mccarty MD Discharge Disposition: Discharge to home or self care 10/13/2024 Orders Only RAD ONC TREATMENTS Miscellaneous, Not In File 10/13/2024 10:19 AM CDT - 10/13/2024 11:59 PM CDT Hospital Encounter [facility] Radiation Oncology [address] [place] [address] Norma Mccarty MD Discharge Disposition: Discharge to home or self care 10/12/2024 Orders Only RAD ONC TREATMENTS Miscellaneous, Not In File 10/12/2024 9:13 AM CDT - 10/12/2024 11:59 PM CDT Hospital Encounter [facility] Radiation Oncology [address] [place] [address] Norma Mccarty MD Discharge Disposition: Discharge to home or self care 10/09/2024 Orders Only RAD ONC TREATMENTS Miscellaneous, Not In File 10/09/2024 7:15 AM CDT - 10/09/2024 11:59 PM CDT Hospital Encounter [facility] Radiation Oncology [address] [facility] [place] [address] Norma Mccarty MD Discharge Disposition: Discharge to home or self care 10/08/2024 Orders Only RAD ONC TREATMENTS Miscellaneous, Not In File 10/08/2024 10:39 AM CDT - 10/08/2024 11:59 PM CDT Hospital Encounter [facility] Radiation Oncology [address] [facility] [place] [address] Norma Mccarty MD Discharge Disposition: Discharge to home or self care 10/07/[address] [facility] Radiation Oncology [address] [place] [address] Joey Cordero MD 10/07/2024 Orders Only RAD ONC TREATMENTS Miscellaneous, Not In File 10/07/[address] [facility] Radiation Oncology [address] [place] [address] [place] [address] China Pete RN 10/07/2024 9:59 AM CDT - 10/07/2024 11:59 PM CDT Hospital Encounter [facility] Radiation Oncology [address] [place] [address] Norma Mccarty MD Discharge Disposition: Discharge to home or self care 10/06/2024 Orders Only RAD ONC TREATMENTS Miscellaneous, Not In File 10/06/2024 4:04 PM CDT - 10/06/2024 11:59 PM CDT Hospital Encounter [facility] Radiation Oncology [address] [place] [address] Norma Mccarty MD Discharge Disposition: Discharge to home or self care 10/05/[address] [facility] Radiation Oncology [address] [place] [address] China Pete RN 10/05/2024 Orders Only RAD ONC TREATMENTS Miscellaneous, Not In File 10/05/2024 7:14 AM CDT - 10/05/2024 11:59 PM CDT Hospital Encounter [facility] Radiation Oncology [address] [facility] [place] [address] Norma Mccarty MD Discharge Disposition: Discharge to home or self care 10/02/2024 OTV [facility] Radiation Oncology [address] [place] [address] Joey Cordero MD 10/02/2024 Orders Only RAD ONC TREATMENTS Miscellaneous, Not In File 10/02/2024 10:23 AM CDT - 10/02/2024 11:59 PM CDT Hospital Encounter [facility] Radiation Oncology [address] [place] [address] Norma Mccarty MD Discharge Disposition: Discharge to home or self care 10/01/2024 Orders Only RAD ONC TREATMENTS Miscellaneous, Not In File 10/01/2024 2:53 PM CDT - 10/01/2024 11:59 PM CDT Hospital Encounter [facility] Radiation Oncology [address] [place] [address] Norma Mccarty MD Discharge Disposition: Discharge to home or self care 09/30/2024 Orders Only RAD ONC TREATMENTS Miscellaneous, Not In File 09/30/2024 9:32 AM CDT - 09/30/2024 11:59 PM CDT Hospital Encounter [facility] Radiation Oncology [address] [place] [address] Norma Mccarty MD Discharge Disposition: Discharge to home or self care 09/29/2024 Orders Only RAD ONC TREATMENTS Miscellaneous, Not In File 09/29/2024 2:31 PM CDT - 09/29/2024 11:59 PM CDT Hospital Encounter [facility] Radiation Oncology [address] [facility] [place] [address] Norma Mccarty MD Discharge Disposition: Discharge to home or self care 09/28/2024 Orders Only RAD ONC TREATMENTS Miscellaneous, Not In File 09/28/2024 9:20 AM CDT - 09/28/2024 11:59 PM CDT Hospital Encounter [facility] Radiation Oncology [address] [facility] [place] [address] Norma Mccarty MD Discharge Disposition: Discharge to home or self care 09/25/2024 OTV [facility] Radiation Oncology [address] [place] [address] Chase Farah MD PhD 09/25/2024 Orders Only RAD ONC TREATMENTS Miscellaneous, Not In File 09/25/2024 10:34 AM CDT - 09/25/2024 11:59 PM CDT Hospital Encounter [facility] Radiation Oncology [address] [place] [address] Norma Mccarty MD Discharge Disposition: Discharge to home or self care 09/24/2024 Telephone [facility] Radiation Oncology [address] [place] [address] [place] [address] China Pete RN 09/24/2024 Orders Only RAD ONC TREATMENTS Miscellaneous, Not In File 09/24/2024 10:15 AM CDT - 09/24/2024 11:59 PM CDT Hospital Encounter [facility] Radiation Oncology [address] [place] [address] Norma Mccarty MD Discharge Disposition: Discharge to home or self care 09/23/2024 Telephone [facility] Radiation Oncology [address] [place] [address] [place] [address] China Pete RN 09/23/2024 Orders Only RAD ONC TREATMENTS Miscellaneous, Not In File 09/23/2024 7:15 AM CDT - 09/23/2024 11:59 PM CDT Hospital Encounter [facility] Radiation Oncology [address] [place] [address] Norma Mccarty MD Discharge Disposition: Discharge to home or self care 09/22/2024 Orders Only RAD ONC TREATMENTS Miscellaneous, Not In File 09/22/2024 10:26 AM CDT - 09/22/2024 11:59 PM CDT Hospital Encounter [facility] Radiation Oncology [address] [place] [address] Norma Mccarty MD Discharge Disposition: Discharge to home or self care 09/21/2024 Orders Only RAD ONC TREATMENTS Miscellaneous, Not In File 09/21/2024 10:40 AM CDT - 09/21/2024 11:59 PM CDT Hospital Encounter [facility] Radiation Oncology [address] [place] [address] Norma Mccarty MD Discharge Disposition: Discharge to home or self care 09/18/[address] [facility] Radiation Oncology [address] [place] [address] China Pete RN 09/18/2024 Orders Only RAD ONC TREATMENTS Miscellaneous, Not In File 09/18/2024 9:17 AM CDT - 09/18/2024 11:59 PM CDT Hospital Encounter [facility] Radiation Oncology [address] [place] [address] Norma Mccarty MD Discharge Disposition: Discharge to home or self care 09/17/2024 Orders Only RAD ONC TREATMENTS Miscellaneous, Not In File 09/17/2024 9:16 AM CDT - 09/17/2024 11:59 PM CDT Hospital Encounter [facility] Radiation Oncology [address] [place] [address] Norma Mccarty MD Discharge Disposition: Discharge to home or self care 09/16/2024 Orders Only RAD ONC TREATMENTS Miscellaneous, Not In File 09/16/2024 Orders Only [facility] Oncology [address] [place] [phone] Aleksander Jackson MD 09/16/2024 Orders Only [facility] Oncology [address] [place] [phone] Ba Yoon RN 09/16/2024 9:23 AM CDT - 09/16/2024 11:59 PM CDT Hospital Encounter [facility] Radiation Oncology [address] [place] [address] Norma Mccarty MD Discharge Disposition: Discharge to home or self care 09/15/2024 OTV [facility] Radiation Oncology [address] [place] [address] Bassem Lagos MD 09/15/2024 Orders Only RAD ONC TREATMENTS Miscellaneous, Not In File 09/15/2024 10:58 AM CDT - 09/15/2024 11:59 PM CDT Hospital Encounter [facility] Radiation Oncology [address] [place] [address] Norma Mccarty MD Discharge Disposition: Discharge to home or self care 09/14/2024 Telephone [facility] Radiation Oncology [address] [place] [address] China Pete RN 09/14/2024 Orders Only RAD ONC TREATMENTS Miscellaneous, Not In File 09/14/2024 8:44 AM CDT - 09/14/2024 11:59 PM CDT Hospital Encounter [facility] Radiation Oncology [address] [place] [address] Norma Mccarty MD Discharge Disposition: Discharge to home or self care 09/11/2024 OTV [facility] Radiation Oncology [address] [place] [address] Norma Mccarty MD 09/11/2024 Orders Only RAD ONC TREATMENTS Miscellaneous, Not In File 09/11/2024 10:52 AM CDT - 09/11/2024 11:59 PM CDT Hospital Encounter [facility] Radiation Oncology [address] [place] [address] Norma Mccarty MD Discharge Disposition: Discharge to home or self care 09/10/2024 Orders Only RAD ONC TREATMENTS Miscellaneous, Not In File 09/10/2024 10:08 AM CDT - 09/10/2024 11:59 PM CDT Hospital Encounter [facility] Radiation Oncology [address] [place] [address] Norma Mccarty MD Discharge Disposition: Discharge to home or self care 09/09/2024 Orders Only RAD ONC TREATMENTS Miscellaneous, Not In File 09/09/2024 9:11 AM CDT - 09/09/2024 11:59 PM CDT Hospital Encounter [facility] Radiation Oncology [address] [place] [address] Norma Mccarty MD Discharge Disposition: Discharge to home or self care 09/08/2024 Orders Only RAD ONC TREATMENTS Miscellaneous, Not In File 09/08/2024 10:15 AM CDT - 09/08/2024 11:59 PM CDT Hospital Encounter [facility] Radiation Oncology [address] [place] [address] Norma Mccarty MD Discharge Disposition: Discharge to home or self care 09/07/2024 Orders Only RAD ONC TREATMENTS Miscellaneous, Not In File 09/07/2024 10:30 AM CDT - 09/07/2024 11:59 PM CDT Hospital Encounter [facility] Radiation Oncology [address] [place] [address] Discharge Disposition: Discharge to home or self care 09/02/2024 8:30 PM CDT - 09/02/2024 11:59 PM CDT Hospital Encounter [facility] Radiation Oncology [address] [place] [address] Norma Mccarty MD Discharge Disposition: Discharge to home or self care 08/27/2024 10:45 AM DIRECTOR HUMAN SERVICES Office Visit [facility] Oncology [address] [facility] [address] [place] [address] Aleksander Jackson MD Prostate cancer (HCC) (Primary Dx) 08/27/2024 9:45 AM DIRECTOR HUMAN SERVICES Lab [facility] at [facility] [address] [facility] [place] [address] Prostate cancer (HCC) 08/24/2024 Orders Only [facility] Radiation Oncology [address] [place], [place] [address] [address] Norma Mccarty MD 08/24/2024 Orders Only [facility] [place] [address] Norma Mccarty MD 08/24/2024 12:23 PM DIRECTOR HUMAN SERVICES - 08/24/2024 11:59 PM DIRECTOR HUMAN SERVICES Hospital Encounter [facility] Radiation Oncology [address] [place] [address] Norma Mccarty MD Discharge Disposition: Discharge to home or self care 08/24/2024 11:37 AM DIRECTOR HUMAN SERVICES - 08/24/2024 11:59 PM DIRECTOR HUMAN SERVICES Hospital Encounter [facility] Radiation Oncology [address] [place] [address] Norma Mccarty MD Discharge Disposition: Discharge to home or self care 08/24/2024 10:00 AM DIRECTOR HUMAN SERVICES - 08/24/2024 11:59 PM DIRECTOR HUMAN SERVICES Hospital Encounter [facility] Radiation Oncology [address] [place] [address] Norma Mccarty MD Prostate cancer (HCC) (Primary Dx) Discharge Disposition: Discharge to home or self care 08/17/2024 Telephone [facility] Oncology [address] [place] [address] Maryana Noe CMA 08/14/2024 Telephone [facility] Radiation Oncology [address] [place] [address] Norma Mccarty MD 08/14/2024 Results Follow-Up [facility] Radiation Oncology [address] [place] [address] Serena Mendes RN 08/13/2024 12:25 PM DIRECTOR HUMAN SERVICES - 08/13/2024 11:59 PM DIRECTOR HUMAN SERVICES Hospital Encounter [facility] Imaging [address] [facility] Medical Office Building 2 [place] [address] Prostate cancer (HCC) Discharge Disposition: Discharge to home or self care from Last 3 Months Allergies No known active allergies Medications tamsulosin [...] 07/01/2024 Assessment & Plan (07/01/2024 8:47 AM DIRECTOR HUMAN SERVICES): Will work on weight loss and blood pressure control going forward. 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 Essential hypertension 03/15/2020 Benign prostatic hyperplasia with lower urinary tract symptoms 03/15/2020 Abdominal pain 02/24/2020 Venous insufficiency 01/28/2020 Overview (01/28/2020): Added automatically from request for surgery [id number] Traumatic open wound of left lower leg with infe ction 07/13/2019 Venous stasis of both lower extremities 07/05/19 20 Edema of both lower extremities 06/02/2019 Wound of left leg 06/02/2019 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 Overview (12/04/2018): Added automatically from request for surgery [id number] Neurofibromatosis ([facility]) 08/21/2018 Neurofibroma 01/02/2017 Sleep apnea, unspecified 11/16/2015 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 Postlaminectomy syndrome of thoracic region 06/25 Diabetes mellitus 10/22/2011 Obesity 10/22/2011 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 Immunizations Immunization Administration Dates Next Due Influenza, Quadrivalent, Vanessa l Culture-based MDCK, Preservative Free, Antibiotic Free, Intramuscular 04/12/2022 Influenza, Quadrivalent, Spl it, Preservative Free, Intramuscular 03/24/2019 Pfizer SARS-CoV-2 Monovalent Vaccination (12+ Yrs) LEACH-READY TO USE 09/08/2021 Pfizer SARS-CoV-2 Monovalent Vaccination (12+ Yrs) PURPLE 09/15/2020,08/25/2020 Pneumococcal Conjugate Pcv20 04/12/2022 Tdap 09/07/2018,08/12/2015 Tetanus toxoid, adsorbed 07/17/2022 ZOSTER Recombinant 03/23/2018, 8,01/06/2018,01/05 Social History Tobacco Use Types Packs/Day Years [...] on file Legal Sex Male 1:05 PM DIRECTOR HUMAN SERVICES Gender Identity Male 02/24/2020 1:23 PM CDT Sexual Orientation Straight 06/19/2019 6: 02 PM DIRECTOR HUMAN SERVICES Last Filed Vital Signs Vital Sign Reading [...] cm (5' 10 ) 07/01/2024 10:51 AM DIRECTOR HUMAN SERVICES Body Mass Index 47.12 07/01/2024 10:51 AM DIRECTOR HUMAN SERVICES Plan of Treatment Not on file Medical Devices Implanted Type Area Waxed Bag Machine Operator Device Identifier Shelf Expiration Date Model / [...] THYROID FUNCTION CASCADE STAT 08/27/2024 9:25 AM DIRECTOR HUMAN SERVICES Prostate cancer (HCC) MAGNESIUM STAT 08/27/2024 9:25 AM DIRECTOR HUMAN SERVICES Prostate cancer (HCC) EGFR STAT 08/27/2024 9:25 AM DIRECTOR HUMAN SERVICES Prostate cancer (HCC) DIFFERENTIAL AUTO STAT 08/27/2024 9:2 5 AM DIRECTOR HUMAN SERVICES Prostate cancer (HCC) CBC WITH AUTO DIFFERENTIAL STAT 08/27/2024 9:25 AM DIRECTOR HUMAN SERVICES Prostate cancer (HCC) COMPREHENSIVE METABOLIC PANEL STAT 08/27/2024 9:25 AM DIRECTOR HUMAN SERVICES Prostate cancer (HCC) PSA DIAGNOSTIC Routine 08/27/2024 9:25 AM DIRECTOR HUMAN SERVICES Prostate cancer (HCC) TOTAL TESTOSTERONE Routine 08/27/2024 9: 25 AM DIRECTOR HUMAN SERVICES Prostate cancer (HCC) PET/CT PROSTATE CANCER PSMA SKULL TO THIGH Schedule Routine, Read Routine (OP Routine) 08/13/2024 2:43 PM DIRECTOR HUMAN SERVICES Prostate cancer (HCC) POCT HEMOGLOBIN A1C Routine 05/27/2024 8 :39 AM DIRECTOR HUMAN SERVICES Type 2 diabetes mellitus without complication, without [...] was last reviewed 2021. Testing performed by: [facility], [address] [place] [address] Blood 10/15/2024 10:0 9 AM CDT 10/15/2024 10:19 AM CDT us Aleksander Jackson MD LAB BLOOD ORDERABLES Fin al Result [facility] [address] [facility] Department of Laboratories [place], [place] [id number] * (ABNORMAL) Differential, auto (10/15/2024 10:09 AM CDT) Pathologist [facility] Neutrophil abs 3.30 1.50 - 6.50 K/cumm Comment:Testing performed by : [facility], [facility], [address] [place] [address] Imm gran abs 0.02 0.00 - 0.10 K/cumm GREG SPAIN Comment:Testing performed by : [facility], [facility], [address] [place] [address] Lymphocyte abs 0.23(L) 0.80 - 3.30 K/cumm CERNER BJWCH Comment:Testing performed by : [facility], [facility], [address] [place] [address] Monocyte abs 0.51 0.20 - 0.80 K/cumm CERNER BJWCH Comment:Testing performed by : [facility], [facility], [address] [place] [address] Eosinophil abs 0.00 0.00 - 0.50 K/cumm CERNER BJWCH Comment:Testing performed by : [facility], [facility], [address] [place] [address] Basophil abs 0.02 0.00 - 0.10 K/cumm CERNER BJWCH Comment:Testing performed by : [facility], [facility], [address] [place] [address] Neutrophil pct 80.9 % CERNER BJWCH Comment: Interpretive Data Percent cell count reference ranges are not reported, since discordance with absolute values may lead to misinterpretation of CBC data. Current Interpretive Data was last revised on 2017. Testing performed by: [facility], [facility], [address] [place] [address] Imm gran pct 0.5 % CERNER BJWCH Comment: Interpretive Data Percent cell count reference ranges are not reported, since discordance with absolute values may lead to misinterpretation of CBC data. Current Interpretive Data was last revised on 2017. Testing performed by: [facility], [facility], [address] [place] [address] Lymphocyte pct 5.6 % CERNER BJWCH Comment: Interpretive Data Percent cell count reference ranges are not reported, since discordance with absolute values may lead to misinterpretation of CBC data. Current Interpretive Data was last revised on 2017. Testing performed by: [facility], [facility], [address] [place] [address] Monocyte pct 12.5 % CERNER BJWCH Comment: Interpretive Data Percent cell count reference ranges are not reported, since discordance with absolute values may lead to misinterpretation of CBC data. Current Interpretive Data was last revised on 2017. Testing performed by: [facility], [facility], [address] [place] [address] Eosinophil pct 0.0 % GREG SPAIN Comment: Interpretive Data Percent cell count reference ranges are not reported, since discordance with absolute values may lead to misinterpretation of CBC data. Current Interpretive Data was last revised on 2017. Testing performed by: [facility], [facility], [address] [place] [address] Basophil pct 0.5 % GREG SPAIN Comment: Interpretive Data Percent cell count reference ranges are not reported, since discordance with absolute values may lead to misinterpretation of CBC data. Current Interpretive Data was last revised on 2017. Testing performed by: [facility], [facility], [address] [place] [address] Blood 10/15/2024 10:0 9 AM CDT 10/15/2024 10:10 AM CDT Aleksander Jackson MD LAB BLOOD ORDERABLES Fin al Result [facility] [address] [facility]. Department [place] [address] * (ABNORMAL) CBC with auto differential (10/15/2024 10:09 AM CDT) WBC 4.08 3.80 - 9.90 K/cumm Comment:Testing performed by : [facility], [facility], [address] [place] [address] Hgb 13.5 13.0 - 17.5 g/dL GREG SPAIN Comment:Testing performed by : [facility], [facility], [address] [place] [address] Hct 38.5(L) 38.9 - 50.3 % CERNER BJWCH Comment:Testing performed by : [facility], [facility], [address] [place] [address] Plt 126(L) 150 - 400 K/cumm CERJUAN LUIS BJWCH Comment:Testing performed by : [place] [address], [address] [place] [address] MPV 9.8 9.1 - 12.3 fL CERJUAN LUIS BJWCH Comment:Testing performed by : [place] [address], [place] [address] RBC 4.08(L) 4.30 - 5.80 M/cumm CERJUAN LUIS BJWCH Comment:Testing performed by : [place] [address] [place] [address] MCV 94.4 81.3 - 96.4 fL GREG BJWCH Comment:Testing performed by : [place] [address], [place] [address] MCH 33.1 27.1 - 33.3 pg CERJUAN LUIS BJWCH Comment:Testing performed by : [place] [address] [place] [address] MCHC 35.1 32.3 - 35.7 g/dL GREG BJWCH Comment:Testing performed by : [place] [address] [place] [address] RDW CV 14.3 11.1 - 14.9 % GREG BJWCH Comment:Testing performed by : [address] [place] [address] RDW SD 49.1(H) 35.7 - 48.1 fL CERJUAN LUIS BJWCH Comment:Testing performed by : [place] [address], [address] [place] [address] ANC Prelim 3.30 1.50 - 6.50 K/cumm CERJUAN LUIS BJWCH Comment: Interpretive Data The rapid ANC is a preliminary automated count and may vary from the final ANC (Neut Abs) reported in the WBC differential that follows. Current interpretive data was last revised 2024. Testing performed by: [facility], [address], [address] [place] [address] Blood 10/15/2024 10:0 9 AM CDT 10/15/2024 10:10 AM CDT Aleksander Jackson MD LAB BLOOD ORDERABLES Fin al Result Performing Organization Address City/[facility] Co de Phone Number GREG STEVENSCH [address] [facility] [email or web address] [address] * PSA diagnostic (10/15/2024 10:09 AM CDT) [...] data last revised 21. Testing performed by: [facility], [address] [place] [address] Blood 10/15/2024 10:0 9 AM CDT 10/15/2024 10:19 AM CDT Aleksander Jackson MD LAB BLOOD ORDERABLES Fin al Result Performing Organization Address City/[facility] Co de Phone Number GREG BJWCH [address] [facility] [email or web address] [address] * (ABNORMAL) Comprehensive metabolic panel (10/15/2024 10:09 AM CDT) Sodium 141 135 - 145 mmol/L Comment:Testing performed by : [facility], [address], [place] [address] Potassium, pl 4.6 3.3 - 4.9 mmol/L CERNER BJWCH Comment:Testing performed by : [facility], [address], [place] [address] Chloride 105 97 - 110 mmol/L CERNER BJWCH Comment:Testing performed by : [facility], [address], [place] [address] CO2 25 22 - 32 mmol/L CERNER BJWCH Comment:Testing performed by : [facility], [address], [place] [address] Anion gap 11 2 - 15 mmol/L CERNER BJWCH Comment:Testing performed by : [facility], [address], [place] [address] BUN 29(H) 6 - 25 mg/dL CERNER BJWCH Comment:Testing performed by : [facility], [address], [place] [address] Creatinine 1.20 0.80 - 1.30 mg/dL CERNER BJWCH Comment:Testing performed by : [facility], [address], [place] [address] Glucose 115 70 - 199 mg/dL CERNER [...] was last revised 2022. Testing performed by: [facility], [address], [place] [address] Calcium 9.4 8.5 - 10.3 mg/dL CERNER BJWCH Comment:Testing performed by : [facility], [address], [place] [address] Bilirubin, total 0.5 0.1 - 1.2 mg/dL [facility] Comment:Testing performed by : [facility], [address], [place] [address] Protein, pl 7.1 6.5 - 8.5 g/dL CERNER BJWCH Comment:Testing performed by : [facility], [address], [place] [address] Albumin 4.3 3.5 - 5.0 g/dL [facility]ER [facility] Comment:Testing performed by : [facility], [address], [place] [address] Alk phos 101 40 - 130 Units/L CERJUAN LUIS [facility] Comment:Testing performed by : [facility], [address], [place] [address] ALT 28 7 - 55 Units/L CERJUAN LUIS [facility] Comment:Testing performed by : [facility], [address], [place] [address] AST 24 10 - 50 Units/L CERJUAN LUIS [facility] Comment:Testing performed by : [facility], [address], [place] [address] Blood 10/15/2024 10:0 9 AM CDT 10/15/2024 10:19 AM CDT us Aleksander Jackson MD LAB BLOOD ORDERABLES Fin al Result [facility] [address] Department of Laboratories [place] [id number] * RAD ONC ARIA SESSION SUMMARY (10/14/2024 10:31 AM CDT) Course Name C1_Prostat e_2024 ARIA [...] SHEN * RAD ONC ARIA SESSION SUMMARY (10/13/2024 10:29 AM CDT) Course Name C1_Prostat e ARIA [...] (10/12/2024 9:34 AM CDT) Course Name C1_Prostat ARIA Course [...] (10/09/2024 7:26 AM CDT) Course Name C1_Prostate ARIA Course [...] ORD ERABLES Final Result Performing Organization Address [facility] Co de Phone Number ARIA * RAD ONC ARIA SESSION SUMMARY (10/08/2024 11:09 AM CDT) Course Name C1_Prostate ARIA Course [...] (10/07/2024 10:10 AM CDT) Course Name C1_Prostate ARIA Course [...] ORD ERABLES Final Result Performing Organization Address [facility] Co de Phone Number ARIA * RAD ONC ARIA SESSION SUMMARY (10/05/2024 [...] ARIA * RAD ONC ARIA SESSION SUMMARY (10/02/2024 [...] ORD ERABLES Final Result Performing Organization Address [facility] Co de Phone Number SHEN May RAD ONC ARIA SESSION SUMMARY (10/01/2024 3:37 [...] SHEN * RAD ONC ARIA SESSION SUMMARY (09/30/2024 9:55 AM CDT) Course Name C1_Prostate ARIA Course [...] SHEN * RAD ONC ARIA SESSION SUMMARY (09/29/2024 [...] ORD ERABLES Final Result Performing Organization Address [facility] Co de Phone Number SHEN May RAD ONC ARIA SESSION SUMMARY (09/28/2024 9:34 AM CDT) Course Name C1_Prostate _2024 ARIA [...] SHEN * RAD ONC ARIA SESSION SUMMARY (09/25/2024 10:48 AM CDT) Course Name C1_Prostate _2024 ARIA [...] ORD ERABLES Final Result Performing Organization Address [facility] Co de Phone Number ARIMaribell * RAD ONC ARIA SESSION SUMMARY (09/24/2024 [...] ARIA * RAD ONC ARIA SESSION SUMMARY (09/23/2024 7:37 AM CDT) Course Name C1_Prostate _2024 ARIA [...] ORD ERABLES Final Result Performing Organization Address [facility] Co de Phone Number SHEN * RAD ONC ARIA SESSION SUMMARY (09/22/2024 10:54 AM CDT) Course Name C1_Prostate _2024 ARIA [...] ORD ERABLES Final Result Performing Organization Address [facility] de Phone Number ARIMaribell * RAD ONC ARIA SESSION SUMMARY (09/21/2024 [...] SHEN * RAD ONC ARIA SESSION SUMMARY (09/18/2024 [...] ORD ERABLES Final Result Performing Organization Address [facility] Co de Phone Number SHEN * RAD ONC ARIA SESSION SUMMARY (09/17/2024 9:40 AM CDT) Course Name C1_Prostate ARIA Course [...] ORD ERABLES Final Result Performing Organization Address City/[facility] Co de Phone Number SHEN * RAD ONC ARIA SESSION SUMMARY (09/16/2024 [...] SHEN * RAD ONC ARIA SESSION SUMMARY (09/15/2024 11:24 AM CDT) Course Name C1_Prostate _2024 ARIA [...] Miscellaneous RADIATION ONCOLOGY ORD ERABLES Final Result ARIMaribell * RAD ONC ARIA SESSION SUMMARY (09/14/2024 [...] PARKERA * RAD ONC ARIA SESSION SUMMARY (09/11/2024 [...] ORD ERABLES Final Result Performing Organization Address City/[facility]/ZIP Co de Phone Number ARIA * RAD ONC ARIA SESSION SUMMARY (09/10/2024 10:28 AM CDT) Course Name C1_Prostate ARIA Course [...] SHEN * RAD ONC ARIA SESSION SUMMARY (09/08/2024 10:46 AM CDT) Course Name C1_Prostate _2024 ARIA [...] ONCOLOGY ORD ERABLES Final Result SHEN * eGFR (08/27/2024 9:25 AM DIRECTOR HUMAN SERVICES) eGFR 75 >=60 mL/min/1. 73 m2 Comment: [...] was last reviewed 2021. Testing performed by: [facility], [address] [facility], [place] [address] Blood 08/27/2024 9:25 AM DIRECTOR HUMAN SERVICES 08/27/2024 9:58 AM DIRECTOR HUMAN SERVICES us Aleksander Jackson MD LAB BLOOD ORDERABLES Fin al Result GREG [facility] [address] [facility]. Department [place] [address] * Differential, auto (08/27/2024 9:25 AM DIRECTOR HUMAN SERVICES) Neutrophil abs 4.3 1.5 - 6.5 K/cumm Comment:Testing performed by : [facility], [address], [address] [place] [address] Imm gran abs 0.0 0.0 - 0.1 K/cumm CERNER BJWCH Comment:Testing performed by : [facility], [facility], [address] [place] [address] Lymphocyte abs 1.2 0.8 - 3.3 K/cumm CERNER BJWCH Comment:Testing performed by : [facility], [facility], [address] [place] [address] Monocyte abs 0.6 0.2 - 0.8 K/cumm CERNER BJWCH Comment:Testing performed by : [facility], [facility], [address] [place] [address] Eosinophil abs 0.0 0.0 - 0.5 K/cumm CERNER BJWCH Comment:Testing performed by : [facility], [facility], [address] [place] [address] Basophil abs 0.1 0.0 - 0.1 K/cumm CERNER BJWCH Comment:Testing performed by : [facility], [facility], [address] [place] [address] Neutrophil pct 70.2 % CERNER BJWCH Comment: Interpretive Data Percent cell count reference ranges are not reported, since discordance with absolute values may lead to misinterpretation of CBC data. Current Interpretive Data was last revised on 2017. Testing performed by: [facility], [facility], [address] [place] [address] Imm gran pct 0.3 % CERNER BJWCH Comment: Interpretive Data Percent cell count reference ranges are not reported, since discordance with absolute values may lead to misinterpretation of CBC data. Current Interpretive Data was last revised on 2017. Testing performed by: [facility], [facility], [address], [place] [address] Lymphocyte pct 19.4 % CERNER BJWCH Comment: Interpretive Data Percent cell count reference ranges are not reported, since discordance with absolute values may lead to misinterpretation of CBC data. Current Interpretive Data was last revised on 2017. Testing performed by: [facility], [facility], [address] [place] [address] Monocyte pct 9.0 % GREG SPAIN Comment: Interpretive Data Percent cell count reference ranges are not reported, since discordance with absolute values may lead to misinterpretation of CBC data. Current Interpretive Data was last revised on 2017. Testing performed by: [facility], [facility], [address] [place] [address] Eosinophil pct 0.3 % GREG SPAIN Comment: Interpretive Data Percent cell count reference ranges are not reported, since discordance with absolute values may lead to misinterpretation of CBC data. Current Interpretive Data was last revised on 2017. Testing performed by: [facility], [facility], [address] [place] [address] Basophil pct 0.8 % GREG SPAIN Comment: Interpretive Data Percent cell count reference ranges are not reported, since discordance with absolute values may lead to misinterpretation of CBC data. Current Interpretive Data was last revised on 2017. Testing performed by: [facility], [facility], [address] [place] [address] Blood 08/27/2024 9:25 AM DIRECTOR HUMAN SERVICES 08/27/2024 9:27 AM DIRECTOR HUMAN SERVICES Aleksander Jackson MD LAB BLOOD ORDERABLES Fin al Result [facility] [address] Department [place] [address] * Thyroid Function [place] (08/27/2024 9:25 AM DIRECTOR HUMAN SERVICES) TSH 3.10 0.30 - 4.20 mcIUnit/mL Comment:Testing performed by : [facility], [address] [place] [address] Blood 08/27/2024 9:25 AM DIRECTOR HUMAN SERVICES 08/27/2024 9:58 AM DIRECTOR HUMAN SERVICES us Aleksander Jackson MD LAB BLOOD ORDERABLES Fin al Result GREG PACHECO [address] [facility]. Department [place] [address] * CBC with auto differential (08/27/2024 9:25 AM DIRECTOR HUMAN SERVICES) WBC 6.1 3.8 - 9.9 K/cumm Comment:Testing performed by : [place] [address], [address] [place] [address] Hgb 14.3 13.0 - 17.5 g/dL GREG SPAIN Comment:Testing performed by : [place] [address], [address] [place] [address] Hct 42.1 38.9 - 50.3 % GREG SPAIN Comment:Testing performed by : [place] [address], [address] [place] [address] Plt 163 150 - 400 K/cumm GREG SPAIN Comment:Testing performed by : [place] [address], [address] [place] [address] MPV 10.4 9.1 - 12.3 fL GREG SPAIN Comment:Testing performed by : [address] [place] [address] RBC 4.53 4.30 - 5.80 M/cumm GREG SPAIN Comment:Testing performed by : [place] [address], [address] [place] [address] MCV 93 81 - 96 fL GREG SPAIN Comment:Testing performed by : [facility], [address] [place] [address] MCH 31.6 27.1 - 33.3 pg GREG SPAIN Comment:Testing performed by : [place] [address], [address] [place] [address] MCHC 34.0 32.3 - 35.7 g/dL GREG SPAIN Comment:Testing performed by : [facility], [address], [address] [place] [address] RDW CV 13.0 11.1 - 14.9 % GREG SPAIN Comment:Testing performed by : [facility], [address], [address] [place] [address] RDW SD 44.2 35.7 - 48.1 fL GREG SPAIN Comment:Testing performed by : [facility], [facility], [address] [place] [address] Blood 08/27/2024 9:25 AM DIRECTOR HUMAN SERVICES 08/27/2024 9:27 AM DIRECTOR HUMAN SERVICES Aleksander Jackosn MD LAB BLOOD ORDERABLES Fin al Result Performing Organization Address City/[facility] Co de Phone Number [facility] [address] [place] [address] * (ABNORMAL) Total testosterone (08/27/2024 9:25 AM DIRECTOR HUMAN SERVICES) Pathologist [facility] Testosterone <2.50(L) 193.00 - 740.00 ng/dL Comment:Testing performed by : [facility], [facility], [place]., [address] Blood 08/27/2024 9:25 AM DIRECTOR HUMAN SERVICES 08/27/2024 5:22 PM DIRECTOR HUMAN SERVICES Aleksander Jackson MD LAB BLOOD ORDERABLES Fin al Result Performing Organization Address City/[facility] Co de Phone Number [facility] [address] [place] [address] * PSA diagnostic (08/27/2024 9:25 AM DIRECTOR HUMAN SERVICES) PSA-Total <0.10 <=5.40 ng/mL Comment: Interpretive Data [...] data last revised 21. Testing performed by: [facility], [address] [place], [place] [address] [address] Blood 08/27/2024 9:25 AM DIRECTOR HUMAN SERVICES 08/27/2024 9:58 AM DIRECTOR HUMAN SERVICES Aleksander Jackson MD LAB BLOOD ORDERABLES Fin al Result Performing Organization Address [facility] Co de Phone Number GREG BJCH [address] [facility]. [facility] [email or web address] [address] * Magnesium (08/27/2024 9:25 AM DIRECTOR HUMAN SERVICES) Magnesium 2.3 1.4 - 2.5 mg/dL Comment: Reference Data. Reference values for Labor and Delivery patients: < or = 0.7 mg/dL to > or = 7.3 mg/dL Current reference data last reviewd on 03/23/2015. Testing performed by: [facility], [address] [place], [place] [address] [address] Blood 08/27/2024 9:25 AM DIRECTOR HUMAN SERVICES 08/27/2024 9:58 AM DIRECTOR HUMAN SERVICES Aleksander Jackson MD LAB BLOOD ORDERABLES Fin al Result Performing Organization Address City/[facility] Co de Phone Number GREG BJCH [address] [facility]. [facility] [email or web address] [address] * Comprehensive metabolic panel (08/27/2024 9:25 AM DIRECTOR HUMAN SERVICES) Sodium 141 135 - 145 mmol/L Comment:Testing performed by : [facility], [address], [place] [address] Potassium, pl 4.4 3.3 - 4.9 mmol/L CERNER BJWCH Comment:Testing performed by : [facility], [address], [place] [address] Chloride 104 97 - 110 mmol/L CERNER BJWCH Comment:Testing performed by : [facility], [address], [place] [address] CO2 27 22 - 32 mmol/L CERNER BJWCH Comment:Testing performed by : [facility], [address], [place] [address] Anion gap 10 2 - 15 mmol/L CERNER BJWCH Comment:Testing performed by : [facility], [address], [place] [address] BUN 25 6 - 25 mg/dL CERNER BJWCH Comment:Testing performed by : [facility], [address], [place] [address] Creatinine 1.10 0.80 - 1.30 mg/dL CERNER BJWCH Comment:Testing performed by : [facility], [address], [place] [address] Glucose 100 70 - 199 mg/dL CERNER [...] was last revised 2022. Testing performed by: [facility], [address], [place] [address] Calcium 9.8 8.5 - 10.3 mg/dL CERNER BJWCH Comment:Testing performed by : [facility], [address], [place] [address] Bilirubin, total 0.7 0.1 - 1.2 mg/dL CERNER BJWCH Comment:Testing performed by : [facility], [address], [place] [address] Protein, pl 7.5 6.5 - 8.5 g/dL CERNER BJWCH Comment:Testing performed by : [facility], [address], [place] [address] Albumin 4.6 3.5 - 5.0 g/dL CERNER BJWCH Comment:Testing performed by : [facility], [address], [place] [address] Alk phos 121 40 - 130 Units/L CERNER BJWCH Comment:Testing performed by : [facility], [address], [place] [address] ALT 24 7 - 55 Units/L CERNER BJWCH Comment:Testing performed by : [facility], [address], [place] [address] AST 22 10 - 50 Units/L CERNER BJWCH Comment:Testing performed by : [facility], [address], [place] [address] Blood 08/27/2024 9:25 AM DIRECTOR HUMAN SERVICES 08/27/2024 9:58 AM DIRECTOR HUMAN SERVICES Aleksander Jackson MD LAB BLOOD ORDERABLES Fin al Result [facility] [address] Department [place] [address] * PET/CT Prostate Cancer PSMA Skull to Thigh (08/13/2024 2:43 PM DIRECTOR HUMAN SERVICES) Anatomical Region Laterality Modality N/A Positron Emissio n Tomography (PET) 08/13/2024 5:22 PM DIRECTOR HUMAN SERVICES Impressions 08/13/2024 5:29 PM DIRECTOR HUMAN SERVICES 1. Focal tracer avidity of the prostate [...] Floyd Maldonado DO Narrative 08/13/2024 5:29 PM DIRECTOR HUMAN SERVICES EXAMINATION: PSMA-PET/CT DATE OF STUDY: 08/13/2024 SCANNER: RADIOPHARMACEUTICAL: 2.3 mCi F-18 DCFPyL (Piflufolastat) i.v. Injection site: Right antecubital fossa HISTORY: 63-year-old man with prostate cancer diagnosed on 02/20/2024. Prostate biopsy 02/20/2024 showed prostate cancer on 6/12 cores with Amy 4+3. Status post radiation therapy (05/12/2024). Patient [...] obtained. The study was interpreted on the [employer] workstation. The total scanned area was mid [...] fat-containing inguinal hernias. Procedure Note Floyd Maldonado, DO - 08/13/2024 EXAMINATION: PSMA-PET/CT DATE OF STUDY: 08/13/2024 SCANNER: RADIOPHARMACEUTICAL: 2.3 mCi F-18 DCFPyL (Piflufolastat) i.v. Injection site: Right antecubital fossa HISTORY: 63-year-old man with prostate cancer diagnosed on 02/20/2024. Prostate biopsy 02/20/2024 showed prostate cancer on 6/12 cores with Amy 4+3. Status post radiation therapy (05/12/2024). Patient [...] obtained. The study was interpreted on the [employer] workstation. The total scanned area was mid [...] * POCT hemoglobin A1c (05/27/2024 8:39 AM DIRECTOR HUMAN SERVICES) Hemoglobin A1C, POC 5.5 4.0 - 5.6 % Blood 05/27/2024 8:39 AM DIRECTOR HUMAN SERVICES J Carlos Carmichael MD POINT OF CARE [...] has done in 2020, repeat in5 years [facility] Provider ENDOSCOPY PROCEDURES Unique l Result from Last 3 Months or Most Recently Relevant to [place] [address] [facility] MEDICARE ADVANTAGE Advance Directives For more information, please contact: [phone] * Full Code (Latest Code Status on File) Date Activated Date Inactivated Comments 12/24/2018 6:53 AM 12/24/2018 2:20 PM * Full Code Date Activated Date Inactivated Comments 12/24/2018 6:53 AM 12/24/2018 6:53 AM Care Teams Key Account Executive Relationship Specialty Start Date End Date J Carlos Carmichael MD [address] [facility] [address] [place] [address] PCP - General 05/22/17 Norma Mccarty MD [address] [facility] [address] [place] [address] Radiation Oncologist Radiation Oncology 06/16/24 Aleksander Jackson MD [address] [facility] [address] [place] [address] Referring Physician Medical Oncology 06/16/24
--- OUTSIDE RECORDS SUMMARY | 2024-10-29 08:32 | XMS_ITS | Encounter Summary ---
Author Organization [facility] Address [address] [place] [address] Phone Care Team Providers Care Science Interpreter Name Role Phone J Carlos Carmichael MD Primary Care Provider [phone] Meredith Mandujano RN Unavailable Unavailable Norma Mccarty MD Unavailable [phone] Aleksander Jackson MD Unavailable [phone] Encounter Details Date Type Department Care Team (Latest Contact Info) Description 09/17/2011 Orders Only [facility] Scanning, Provider Social History Tobacco Use Types Packs/Day Years Used Date Smoking Tobacco: Never Assessed Sex and Gender Information Value Date Recorded Sex Assigned at Not on file Legal Sex Male 1:05 PM PRESCHOOL DIRECTOR Gender Identity Male 02/24/2020 1:23 PM CDT Sexual Orientation Straight 06/19/2019 6: 02 PM PRESCHOOL DIRECTOR documented as of this encounter Plan of Treatment Not on file documented as of this encounter Procedures Procedure Name Priority Date/Time Associated Diagnosis Comments CARDIOLOGY DOCUMENT SCAN 09/17/2011 documented in this encounter Results * SCAN - CARDIOLOGY (09/17/2011) Anatomical Region Laterality Modality Other us Provider Scanning CV CARDIAC SERVICES PROCEDURES Final Result documented in this encounter Visit Diagnoses Not on filedocumented in this encounter Care Teams Science Interpreter Relationship Specialty Start Date End Date J Carlos Carmichael MD [address] [facility] [address] [place] [address] PCP - General 05/22/17 Meredith Mandujano, RN Registered Nurse Gastroenterology 12/26/18 03/14/21 Norma Mccarty MD [address] [facility] [address] [place] [address] Radiation Oncologist Radiation Oncology 06/16/24 Aleksander Jackson MD 10 [facility] [address] [place] [address] Referring Physician Medical Oncology 06/16/24 documented as of this encounter
--- OUTSIDE RECORDS SUMMARY | 2024-10-29 08:33 | XMS_ITS | CONTINUITY OF CARE DOCUMENT ---
Author Name eunice, eunice Address Unknown Organization [facility] Address [address] [place] [address] Phone [phone] Care Team Providers Care Medical I D Sales Name Role Phone Simone Coreas MD Unavailable [phone] ANTONIO ALVAREZ MD Unavailable ANTONIO ALVAREZ MD Unavailable PROBLEMS Condition Status Date Provider Notes HTN ESSENTIAL active Simone Coreas MD CHEST PAIN completed - Simone Coreas MD DIABETES MELLITUS active Simone Coreas MD Hypercholesterolemia, mixed active Jhoana Gr uenenfelder OBESITY active Simone Coreas MD Family History of Hypertension: completed - Abeba Coreas MD Sleep apnea - on CPAP active Simone Coreas MD Leg edema active Simone Coreas MD Myocardial bridging mid LAD active Simone cardona MD Neurofibromatosis active Simone Coreas MD Family History of Hypertension: completed - Oneal Martini Chronic venous hypertension with ulcer of LLE active Simone Coreas MD ENCOUNTERS Date Type Provider Location Encounter Diag nosis - In-person encounter Office Visit Simone Coreas MD [place] [facility] CHEST PAINChronic venous hypertension with ulcer of LLE - In-person encounter Office Visit Simone Coreas MD [place] [facility] Sleep apnea - on CPAP - In-person encounter Office Visit Simone Coreas MD [place] [facility] HTN ESSENTIALLeg edemaMyocardial bridging mid LADNeurofibromatosisFamily History of Hypertension: - In-person encounter Office Visit Simone Coreas MD [place] [facility] Family History of Hypertension:Sleep apnea - on CPAP - In-person encounter Office Visit Simone Coreas MD [place] - In-person encounter Office Visit Simone Coreas MD [place] - In-person encounter Office Visit Simone Coreas MD [place] HTN ESSENTIAL - In-person encounter Office Visit Simone Coreas MD [place] HTN ESSENTIALCHEST PAINDIABETES MELLITUSHypercholesterolemia, mixedOBESITY VITAL SIGNS Date Observation Value Provider Body Mass Index (Ratio) 47.63 kg/m2 Nima jackson Vini blood pressure, diastolic 80 mm[Hg] Obey polanco Heber blood pressure, systolic 128 mm[Hg] Obeyi [facility] oxygen saturation, oximetry 98 % [facility] pulse rate 67 /min [facility] respiratory rate E&M 18 /min [facility] blood pressure, cuff size regular [facility] weight E&M 332 [lb_av] [facility] [in_i] [facility] Body Mass Index (Ratio) 53.23 kg/m2 Nima Martini blood pressure, diastolic 80 mm[Hg] Da alessandro Cydney blood pressure, systolic 128 mm[Hg] Dac ia Cydney oxygen saturation, oximetry 94 % Maryellen Cydney respiratory rate E&M 18 /min Maryellen V oss pulse rate 64 /min Maryellen Cydney weight E&M 371 [lb_av] Maryellen Cydney height E&M 70 [in_i] Maryellen Cydney Body Mass Index (Ratio) 49.35 kg/m2 Nima Martini blood pressure, resting Yes Simone Coreas MD blood pressure, cuff size large [facility] pressure, diastolic 80 mm[Hg] [facility] rri [facility] blood pressure, systolic 122 mm[Hg] Ker ri [facility] oxygen saturation, oximetry 93 % Jhoana Kya respiratory rate E&M 18 /min Jhoana romo pulse rate 60 /min Jhoana Maisha er weight E&M 344 [lb_av] Jhoana Chiarae er height E&M 70 [in_i] Jhoana Maisha er blood pressure, diastolic 86 mm[Hg] Pricila Mathews blood pressure, systolic 146 mm[Hg] Sharri Mathews pulse rate 55 /min Dianne howell oxygen saturation, oximetry 98 % Dianne Mathews respiratory rate E&M 18 /min Karie Mathews Body Mass Index (Ratio) 53.83 kg/m2 Sheila Mathews weight E&M 375.2 [lb_av] Dianne card Body Mass Index (Ratio) 49.35 kg/m2 Anea joanna Brown blood pressure, diastolic, left arm 81 mm [Hg] Aneatris Brown blood pressure, systolic, left arm 142 mm [Hg] Aneatris Brown blood pressure, diastolic, right arm 92 m m[Hg] Aneatris Brown blood pressure, systolic, right arm 150 m m[Hg] Aneatris Brown blood pressure, diastolic 81 mm[Hg] An eatris Brown blood pressure, systolic 142 mm[Hg] Ane atris Brown pulse rate 56 /min Aneatris Brown oxygen saturation, oximetry 96 % Aneatris Brown respiratory rate E&M 17 /min Aneatri s Brown weight E&M 344 [lb_av] Aneatris Brown Body Mass Index (Ratio) 46.08 kg/m2 Fermin i Kya blood pressure, diastolic 85 mm[Hg] Ke rri Kya blood pressure, systolic 135 mm[Hg] Jose Eduardo ri Kya pulse rate 60 /min Jhoana Maisha anguiano oxygen saturation, oximetry 98 % Jhoana Boland respiratory rate E&M 15 /min Jhoana romo weight E&M 320 [lb_av] Jhoana Maisha anguiano Body Mass Index (Ratio) 52.99 kg/m2 Patel Osman blood pressure, diastolic, left arm 75 mm [Hg] Phil Osman blood pressure, systolic, left arm 140 mm [Hg] Phil Osman blood pressure, diastolic, right arm 72 m m[Hg] Phil Osman blood pressure, systolic, right arm 122 m m[Hg] Phil Osman blood pressure, diastolic 75 mm[Hg] Hill blood pressure, systolic 140 mm[Hg] Royal Osman pulse rate 67 /min Phil Osman oxygen saturation, oximetry 95 % Phil Osman respiratory rate E&M 16 /min Phil Osman weight E&M 368 [lb_av] Phil Osman height E&M 70 [in_i] Phil Osman blood pressure, diastolic, left arm 82 mm [Hg] Ame Trinh blood pressure, systolic, left arm 128 mm [Hg] Ameanupam Trinh blood pressure, diastolic, right arm 80 m m[Hg] Ame Trinh blood pressure, systolic, right arm 130 m m[Hg] Ame Ziggy blood pressure, diastolic 82 mm[Hg] Rob bo Ziggy blood pressure, systolic 128 mm[Hg] Corina fabricio Ziggy pulse rate 77 /min Ame Trinh oxygen saturation, oximetry 97 % Ameanupam Trinh respiratory rate E&M 16 /min Ame M donnell weight E&M 362 [lb_av] Ame Trinh ALLERGIES No Known Drug Allergies RESULTS Date Observation Value Provider Reference Range Interpretation Location 3 LDL cholesterol, serum 65 mg/dL Simone Coreas MD 3 prothrombin time (patient) 11.1 s [facility] 9.1-12.0 3 international normalized ratio (INR) 1.1 [facility] 0.8-1.2 3 lipoprotein, beta, serum, point, quantitative, calculated 65 mg/dL [facility] 0-99 3 very low density lipoproteins 16 mg/dL [facility] 5-40 3 HDL cholesterol, serum 37 mg/dL [facility] >39 Low 3 triglyceride, serum, random 78 mg/dL [facility] 0-149 3 cholesterol, serum 118 mg/dL [facility] 686-355 7009/11/1 3 calcium, serum 8.9 mg/dL [facility] 8.7-10.2 3 carbon dioxide, venous blood 22 mmol/L [facility] 20-29 3 chloride, serum 107 mmol/L [facility] 96-106 High 3 potassium, serum 4.4 mmol/L [facility] 3.5-5.2 3 sodium, serum 145 mmol/L [facility] 134-144 High 3 urea nitrogen/creatini ne ratio, serum 18 [facility] 9-20 3 eGFR if 98 mL/min/{1 .73_m2} [facility] >59 3 eGFR if not 85 mL/min/{1 .73_m2} [facility] >59 3 creatinine, serum 0.98 mg/dL [facility] 0.76-1.27 3 urea nitrogen, blood 18 mg/dL [facility] 6-24 3 blood glucose, random 119 mg/dL [facility] 65-99 High 3 basophil count, absolute 0.0 x10E3/uL [facility] 0.0-0.2 3 Eosinophil Absolute Count 0.1 X10E3/UL [facility] 0.0-0.4 3 monocyte count, blood, automated 0.6 X10E3/UL [facility] 0.1-0.9 3 lymphocyte count, blood, automated 1.5 X10E3/UL [facility] 0.7-3.1 3 Absolute Neutrophils 2.1 X10E3/UL [facility] 1.4-7.0 3 basophils as percent of blood leukocytes 1 % [facility] Not Estab. 3 eosinophils as percent of blood leukocytes 2 % [facility] Not Estab. 3 monocytes as percent of blood leukocytes 15 % [facility] Not Estab. 3 lymphocytes as percent of blood leukocytes 35 % [facility] Not Estab. 3 neutrophils as percent of blood leukocytes 47 % [facility] Not Estab. 3 platelet count 158 X10E3/UL [facility] 683-892 3248/11/1 3 red blood cell distribution width 13.8 % [facility] 12.3-15.4 3 mean corpuscular hemoglobin concentration, RBC 32.7 G/DL [facility] 31.5-35.7 3 mean corpuscular hemoglobin, RBC 31.1 pg [facility] 26.6-33.0 3 mean corpuscular volume, RBC 95 fL [facility] 79-97 3 hematocrit, blood 41.6 % [facility] 37.5-51.0 3 hemoglobin, blood 13.6 g/dL [facility] 13.0-17.7 3 erythrocyte (RBC) count 4.37 X10E6/UL [facility] 4.14-5.80 3 leukocyte count, blood 4.3 X10E3/UL [facility] 3.4-10.8 1 triglyceride, serum, fasting 154 mg/dL Leon Swan RN 1 HDL cholesterol, serum 34 mg/dL Leon Swan RN 1 LDL cholesterol, serum 93 mg/dL Leon Swan RN 1 cholesterol, serum 158 mg/dL Leon Swan RN HISTORY OF MEDICATION USE Medication Status Instructions Dates Provider Indications Com ments IBU 800 MG ORAL TABLET active three times daily Simone Coreas MD MELOXICAM 7.5 MG ORAL TABLET completed take one pill a day - Maryellen Cydney LYRICA CAPSULE active 3 times daily Karie Mathews GABAPENTIN TABLET completed 1 tab three times daily - Dianne Mathews ATENOLOL 50 MG ORAL TABLET active take one pill a day Jhoana Boland PROPECIA 1 MG ORAL TABLET active 1 tab daily Phil Osman NAPROXEN TABS completed 1 tab twice daily - Jhoana Boland VICODIN TABS active as directed. 1 tab qid as needed for pain Ame Trinh SIMVASTATIN 20 MG ORAL TABLET active ONE TAB. DAILY Ame Trinh FINASTERIDE TABLET completed 1mg once a day - Jhoana Boland VERAMYST 27.5 MCG/SPRAY NASAL SUSPENSION completed once a day - Phil Osman ALEVE CAPSULE completed 500mg twice a day - Leon Swan RN FELODIPINE ER 10 MG ORAL TABLET EXTENDED RELEASE 24 HOUR active ONE TAB DAILY Ame Trinh LASIX 40 MG ORAL TABLET completed 1 tab daily - Jhoana Boland ASPIRIN 81 MG ORAL TABLET active ONE TAB. DAILY Ame Trinh ALLOPURINOL 300 MG ORAL TABLET active ONE TAB. DAILY Ame Trnih SOCIAL HISTORY Date Observation Value Provider social history reviewed E&M i ewed - no changes required Simone Coreas MD exercise type walking Barbara Ginny physical exercise, f requency, days per week yes Barbara Heber caffeine use, averag e drinks per day 1+ Barbara Ginny passive cigarette sm stephenie exposure no Barbara Heber smoking status Never smoker Barbara Heber social history reviewed E&M aliyah ewed - no changes required Simone Coreas MD exercise type walking [facility] physical exercise, f requency, days per week yes [facility] alcohol counseling no [facility] In the past 3 months , have you been waking up wanting to use drugs? (CAGE substance use question #4) N [facility] In the past 3 months , have you felt guilty or bad about using drugs? (CAGE substance use question #3) N [facility] In the past 3 months , has anyone annoyed you by telling you to cut down or stop using drugs? (CAGE substance use question #2) N [facility] In the past 3 months , have you felt you should cut down or stop using drugs?(CAGE substance use question #1) N [facility] alcohol use, average drinks per day social basis only [facility] alcohol use yes [facility] caffeine use, averag e drinks per day 1+ [facility] drug use no [facility] passive cigarette sm stephenie exposure no [facility] smoking status Never smoker [facility] social history E&M Smoking Histo ry: P atient has never smoked. Simone Coreas MD social history reviewed E&M aliyah ewed - no changes required Simone Coreas MD exercise type walking Jhoana Guadarrama riddhi alcohol counseling no Jhoana Reynolds drea In the past 3 months , have you been waking up wanting to use drugs? (CAGE substance use question #4) N Jhoana Guadarramariddhi In the past 3 months , have you felt guilty or bad about using drugs? (CAGE substance use question #3) N Jhoana Petersonmarceshelleygladys In the past 3 months , has anyone annoyed you by telling you to cut down or stop using drugs? (CAGE substance use question #2) N Jhoana Petersonmarcewatsonriddhi In the past 3 months , have you felt you should cut down or stop using drugs?(CAGE substance use question #1) N Jhoana Guadarramariddhi alcohol use, average drinks per day social basis only Jhoana Petersonmarceshelleygladys alcohol use yes Jhoana Katjanelle anguiano caffeine use, averag e drinks per day 1+ Edmar Martini drug use no Jhoana Ferrera annmarie passive cigarette sm stephenie exposure no Jhoana Petersondeepa smoking status Never smoker Jhoana Padilla abdoul social history E&M Smoking Histo ry: P atient has never smoked. Simone Coreas MD social history reviewed E&M revi ewed - no changes required Simone Coreas MD exercise type walking Dianne card physical exercise, f requency, days per week yes Dianne Mathews alcohol counseling no Dianne Mathews In the past 3 months , have you been waking up wanting to use drugs? (CAGE substance use question #4) N Dianne Mathews In the past 3 months , have you felt guilty or bad about using drugs? (CAGE substance use question #3) N Dianne Mathews In the past 3 months , has anyone annoyed you by telling you to cut down or stop using drugs? (CAGE substance use question #2) N Dianne Mathews In the past 3 months , have you felt you should cut down or stop using drugs?(CAGE substance use question #1) N Dianne Mathews alcohol use, average drinks per day social basis only Dianne Mathews alcohol use yes Dianne howell caffeine use, averag e drinks per day yes Dianne Mathews drug use no Dianne howell passive cigarette sm stephenie exposure no Dianne Mathews smoking status Never smoker Dianne Venegas social history reviewed E&M aliyah dinero - no changes required Simone Coreas MD smoking status Never smoker Reinier calle social history reviewed E&M reviewed Belen Underwood social history reviewed E&M reviewed Leon Swan RN exercise type walking Phil calle alcohol counseling no Phil campos In the past 3 months , have you been waking up wanting to use drugs? (CAGE substance use question #4) N Phil Osman In the past 3 months , have you felt guilty or bad about using drugs? (CAGE substance use question #3) Mary Osman In the past 3 months , has anyone annoyed you by telling you to cut down or stop using drugs? (CAGE substance use question #2) N Phil Osman In the past 3 months , have you felt you should cut down or stop using drugs?(CAGE substance use question #1) N Phil Osman drug use no Phil Osman passive cigarette sm stephenie exposure no Phil Osman smoking status never smoker Phil astorga drug use none Smione Coreas MD physical exercise, f requency, days per week yes [facility] caffeine use, averag e drinks per day yes [facility] alcohol use, average drinks per day [facility] basis [facility] MENTAL STATUS Date Observation Value Provider assessment of judgme nt and insight E&M Alert and oriented to time, place and person. Mood and affect are normal. Belen Yasmine assessment of judgme nt and insight E&M Alert and oriented to time, place and person. Mood and affect are normal. Leon Swan RN assessment of judgme nt and insight E&M Alert and oriented to time, place and person. Mood and affect are normal. Simone Coreas MD FAMILY HISTORY Family Member Condition Father Family History of Ot her Cancer Father Family History of Hy pertension: INSURANCE PROVIDERS Payer name Policy type / Coverage type [employer] party ID [employer] [id number] ADVANCE DIRECTIVES Name Date DISCUSSED - NO DECISION MADE TREATMENT PLAN Date Name Performer Cardiology:BP today: 128/80 P rior BP: 128/80 (03/19/2018) His updated medication list for this problem includes: Felodipine Er 10 Mg Oral Tablet Extended Release 24 Hour (Felodipine) ..... One tab daily Atenolol 50 Mg Oral Tablet (Atenolol) ..... Take one pill a day Edmar Martini Cardiology:Venous du plex last year showed b/l venous insufficiency of the GSV and pulsatile flow in the CFV bilaterally. Venogram did not show compression of the iliac veins. He has an open sore in the left leg (CEAP C6) and severe pigmentation changes on the right. He's under the care of the wound care clinic at [facility]. He was advised to ask the wound care clinic about Eva boot. In addition, ablation of the GSV's as soon as feasibly possible is recommended. He will discuss with his wound care physician. Edmar Martini Cardiology:Venous du plex last year showed b/l venous insufficiency of the GSV and pulsatile flow in the CFV bilaterally. Venogram did not show compression of the iliac veins. He has an open sore in the left leg (CEAP C6) and severe pigmentation changes on the right. He's under the care of the wound care clinic at [facility]. He was advised to ask the wound care clinic about Eva boot. In addition, ablation of the GSV's as soon as feasibly possible is recommended. He will discuss with his wound care physician. CEAP Clinical Classification C0 : No visible or palpable signs of venous disease C1 : Telangiectasies or reticular veins C2 : Varicose veins C3 : Edema C4a: Pigmentation or eczema C4b: Lipodermatosclerosis or atrophie zander C5 : Healed venous ulcer C6 : Active venous ulcer [facility] Cardiology:CHOL: 118 (05/06/2018) HDL: 37 (05/06/2018) LDL: 65 (05/06/2018) TRI (05/06/2018) His updated medication list for this problem includes: Simvastatin 20 Mg Oral Tablet (Simvastatin) ..... One tab. daily Simone Coreas MD Cardiology follow up:Now on CPAP . [facility] Cardiology follow up :BP today: 128/80 P rior BP: 122/80 (01/02/2017) His updated medication list for this problem includes: Felodipine Er 10 Mg Oral Tablet Extended Release 24 Hour (Felodipine) ..... One tab daily Atenolol 50 Mg Oral Tablet (Atenolol) ..... Take one pill a day [facility] Cardiology follow up :Orders: V enous Doppler Bilateral LE - Reflux ([id number]) [facility] Cardiology Follow up [facility] Cardiology Follow up:Exercise an d weight loss advised. [facility]iology Follow up :His updated medication list for this problem includes: Aspirin 81 Mg Tabs (Aspirin) ..... One tab. daily [facility]iology Follow up :His updated medication list for this problem includes: Simvastatin 20 Mg Tabs (Simvastatin) ..... One tab. daily [facility] Follow up :BP today: 122/80 P rior BP: 146/86 (11/16/2015) The following medications were removed from the medication list: Lasix 40 Mg Tabs (Furosemide) ..... 1 tab daily H is updated medication list for this problem includes: Felodipine 10 Mg [id number] (Felodipine) ..... One tab daily Atenolol 50 Mg Tabs (Atenolol) ..... Take one pill a day [facility] Cardiology Follow up:Unable to t olerate CPAP. [facility] Cardiology Follow up:No recurren ce. [facility] Cardiology Follow up :No chest pain. His updated medication list for this problem includes: Aspirin 81 Mg Tabs (Aspirin) ..... One tab. daily Felodipine 10 Mg [id number] (Felodipine) ..... One tab daily Atenolol 50 Mg Tabs (Atenolol) ..... Take one pill a day [facility] Cardiology Follow up :He does have leg swelling and discoloration consistent with venous insufficiency however he is not interested in any testing at this time. I recommend support stockings. [facility]mar Martini Cardiology Simone Coreas MD Cardiology:His [facility] medication list for this problem includes: Aspirin 81 Mg Tabs (Aspirin) ..... One tab. daily Simone Coreas MD Cardiology:CHOL: 158 (10/22/2012) LDL: 93 (10/22/2012) HDL: 34 (10/22/2012) T (10/22/2012) His updated medication list for this problem includes: Simvastatin 20 Mg Tabs (Simvastatin) ..... One tab. daily Simone Coreas MD Cardiology:BP today: 146/86 P rior BP: 142/81 (10/27/2014) His updated medication list for this problem includes: Aspirin 81 Mg Tabs (Aspirin) ..... One tab. daily Lasix 40 Mg Tabs (Furosemide) ..... 1 tab daily Felodipine 10 Mg [id number] (Felodipine) ..... One tab daily Atenolol 50 Mg Tabs (Atenolol) ..... Take one pill a day Simone Coreas MD Cardiology:No chest pain. Simone Coreas MD Cardiology:The pt is not able to use his CPAP successfully. I offered to test him for a dental device with Dr. Trimble and he will let us know if he is interested. Simone Coreas MD Date Name PROTHROMBIN TIME WIT H INR LIPID PANEL CBC (INCLUDES DIFF/P LT) BASIC METABOLIC PANE L W/EGFR Venous Doppler Bilat eral LE - Reflux Complete Echo HISTORY OF PROCEDURES Procedure Date Procedure Name Provider Procedure Notes S tatus EKG Simone Coreas MD completed EKG Simone Coreas MD completed EKG Simone Coreas MD completed SNOMED-CT: 935457678 [id number] Current Medications Documented Simone Coreas MD completed SNOMED-CT: 89545115 Physical Exam, Performed: Pulse Exam of Foot Simone Coreas MD completed EKG Simone Coreas MD completed SNOMED-CT: 694153239 211950 Current Medications Documented Simone Coreas MD completed EKG Simone Coreas MD completed EKG Simone Coreas MD completed Lipid Strip Simone Coreas MD completed EKG Simone Coreas MD completed
--- OUTSIDE RECORDS SUMMARY | 2024-10-29 08:33 | XMS_ITS | Encounter Summary ---
Author Organization [facility] Healthcare Address [address] [place] [address] Care Team Providers Care Furnace Clerk Name Role Phone J Carlos Carmichael MD Primary Care Provider [phone] Norma Mccarty MD Unavailable Aleksander Jackson MD Unavailable [phone] Reason for Referral * MRI/CAT/PET Scan (Routine) - Pending Review Specialty Diagnoses / Procedures Referred By Contac t Referred To Contact Radiology Diagnoses Prostate cancer (HCC) Procedures MRI PELVIS W WO CONTRAST Bill Garcia MD [address] [address] Phone: tel: fax: [facility] [address] [place] [address] Referral ID Status Reason Start Date Expiration Date V isits Requested Visits Authorized [id number] Pending Review 06/18/2024 07/18/2025 1 1 ENT REGISTRATION SUPERVISOR * MRI/CAT/PET Scan (Routine) - Pending Review Specialty Diagnoses / Procedures Referred By Contac t Referred To Contact Radiology Diagnoses Prostate cancer (HCC) Procedures MRI LUMBAR SPINE W WO CONTRAST Bill Garcia MD [address] [facility] [address] [place] [address] Phone: tel: fax: [facility] 1 [facility] [place] [address] Referral ID Status Reason Start Date Expiration Date V isits Requested Visits Authorized [id number] Pending Review 06/18/2024 07/18/2025 1 1 ENT REGISTRATION SUPERVISOR Encounter Details Date Type Department Care Team (Late st Contact Info) Description 06/18/[address] [facility] EpicCare Link Bill Garcia MD [address] [place] [address] Prostate cancer (HCC) (Primary Dx) Social History Tobacco Use Types Packs/Day Years Used Date Smoking Tobacco: Never Passive Smoke Exposure: Never Smokeless Tobacco: Never Alcohol Use Standard Drinks/Week Comments Not Currently 0 (1 standard drink = 0.6 oz pur e alcohol) Sex and Gender Information Value Date Recorded Sex Assigned at Not on file Legal Sex Male 1:05 PM PATIENT REGISTRATION SUPERVISOR Gender Identity Male 02/24/2020 1:23 PM CDT Sexual Orientation Straight 06/19/2019 6: 02 PM PATIENT REGISTRATION SUPERVISOR documented as of this encounter Plan of Treatment Scheduled Orders Name Type Priority Associated Diagnoses Orde r Schedule MRI LUMBAR SPINE W WO CONTRAST Imaging Schedule Routine, Read Routine (OP Routine) Prostate cancer (HCC) Expected: 06/18/2024, Expires: 06/18/2025 MRI PELVIS W WO CONTRAST Imaging Schedule Routine, Read Routine (OP Routine) Prostate cancer (HCC) Expected: 06/18/2024, Expires: 06/18/2025 documented as of this encounter Visit Diagnoses Diagnosis Prostate cancer (HCC)- Primary Malignant neoplasm of prostate documented in this encounter Care Teams Furnace Clerk Relationship Specialty Start Date End Date J Carlos Carmichael MD [address] [facility] [address] [place] [address] PCP - General 05/22/17 Norma Mccarty MD [address] [facility] [address] [place] [address] Radiation Oncologist Radiation Oncology 06/16/24 Aleksander Jackson MD [address] [facility] [address] [place] [address] Referring Physician Medical Oncology 06/16/24 documented as of this encounter
--- OUTSIDE RECORDS SUMMARY | 2024-10-29 08:33 | XMS_ITS | Clinical Summary ---
Author Organization [facility] Address [address] [place] [address] Care Team Providers Care Bog Cutter Name Role Phone Unavailable Primary Care Provider Unavailabl e Source Comments [facility],non-owned Affiliates and Associated Physician Practices is amultiple site organization consisting of ambulatory clinics and hospital sitesin [place], [place], [place] and [place]. This disclosure is being madepursuant to the Care Everywhere program and may not contain all information available regarding this patient. Last updated 18.[facility]crebo Allergies No known active allergies Medications * Be aware that medications may not be up to date on this document. Alwaysverify current medications with the patient. allopurinol (ZYLOPRIM) 300 MG tablet Take 300 mg by mouth once daily 09/27/2020 Active anastrozole (ARIMIDEX) 1 MG tablet TAKE 1 TABLET BY MOUTH 1 TIME EVERY 2 WEEKS 10/09/2020 Active atenolol (TENORMIN) 50 MG tablet Take 50 mg by mouth once daily 09/27/2020 Active felodipine CR 24hr (PLENDIL) 10 MG tablet 09/27/2020 Active HYDROcodone-acet aminophen (NORCO) 7.5-325 MG tablet Take 1 tablet by mouth every 8 hours as needed For pain. 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 Sleep apnea, unspecified 11/16/2015 Essential (primary) hypertension 10/22/2011 Mixed hypercholesterolemia and hypertriglyceride mervat 10/22/2011 Social History Tobacco Use Types Packs/Day Years Used Date Smoking Tobacco: Never Assessed Sex and Gender Information Value Date Recorded Sex Assigned at Not on file Legal Sex Male 5:47 PM CDT Gender Identity Not on file Sexual Orientation Not on file Last Filed Vital Signs Vital Sign Reading Time Taken Comments Blood Pressure 138/88 10/21/2020 9:39 AM CDT Pulse 68 10/21/2020 9:39 AM CDT Temperature 36.8 C (98.2 F) 10/21/2020 9:39 AM CDT Respiratory Rate 18 10/21/2020 9:39 AM CDT Oxygen Saturation 95% 10/21/2020 9:39 AM CDT Inhaled Oxygen Concentration - - Weight 167.2 kg (368 lb 9.6 oz) 10/21/2020 9:39 AM CDT Height 180.3 cm (5' 11 ) 10/21/2020 9:39 AM CDT Body Mass Index 51.41 10/21/2020 9:39 AM CDT Plan of Treatment Health Maintenance Due Date Last Done Comments COLOGUARD (AGES 45-75) - COL ON CA SCREENING 1959 COLON MONITORING 1959 COLONOSCOPY - COLON CA SCREENING 1959 CT COLONOGRAPHY - COLON CA SCREENING 1959 Colorectal Cancer Screening 1959 FIT - COLON CA SCREENING 1959 FLEX SIG - COLON CA SCREENING 1959 HIV SCREENING 11/19/1974 HEPATITIS C SCREENING 11/15/1977 DTAP/TDAP/TD VACCINES (1 - Tdap) 11/19/1978 PNEUMOCOCCAL VACCINE 50+ (1 of 1 - PCV) 11/19/2009 ZOSTER VACCINE (1 of 2) 11/19/2009 Respiratory Syncytial Virus (RSV) Vaccine Pt: or over 60 yrs (1 - Risk 60-74 years 1-dose series) 2019 SCREENING FOR DIABETES 10/21/2020 COVID-19 VACCINE (2023-2 5 season) 2024 DEPRESSION SCREENING 06/24/2024 INFLUENZA VACCINE (Season Ended) 2025 HEPATITIS B VACCINE Aged Out No longe r eligible based on patient's age to complete this topic HIB VACCINE Aged Out No longer eligi ble based on patient's age to complete this topic HPV VACCINE Aged Out No longer eligi ble based on patient's age to complete this topic MENINGOCOCCAL (Group B) VACC INE SHARED DECISION-MAKING Aged Out No longer eligibl e based on patient's age to complete this topic MENINGOCOCCAL GROUPS A/C/Y/W VACCINE Aged Out No longer eligible b ased on patient's age to complete this topic Insurance
--- OUTSIDE RECORDS SUMMARY | 2024-10-29 08:33 | XMS_ITS | Encounter Summary ---
Author Organization [facility] Healthcare Address [address] [place] [address] Care Team Providers Care Corrective Therapy Aide Name Role Phone J Carlos Carmichael MD Primary Care Provider Norma Mccarty MD Unavailable [phone] Aleksander Jackson MD Unavailable [phone] Reason for Visit * Reason Comments OTV Encounter Details Date Type Department Care Team (Late st Contact Info) Description 09/25/2024 OTV [facility] Advanced Medicine Radiation Oncology [address] [facility] [place] [address] Chase Farah MD PhD [address] [facility] [address] [place] [address] Social History Tobacco Use Types Packs/Day Years [...] on file Legal Sex Male 1:05 PM 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 Gender Identity Male 02/24/2020 1:23 PM CDT Sexual Orientation Straight 06/19/2019 6: 02 PM 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 OPERATIONS documented as of this encounter Last Filed Vital Signs Vital Sign Reading Time Taken Comments Blood Pressure - - Pulse - - Temperature - - Respiratory Rate - - Oxygen Saturation - - Inhaled Oxygen Concentration - - Weight 151 kg (333 lb) 09/25/2024 11:05 AM CDT Height - - Body Mass Index 47.78 07/01/2024 10:51 AM 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 OPERATIONS documented in this encounter Progress Notes * Burton Mccoy MD - 09/25/2024 11:05 AM CDT Radiation Oncologist: Norma Mccarty MD Primary Care Physician: J Carlos Carmichael MD Medical Oncologist: Aleksander Jackson MD Surgeon: No care customer solutions teammate to display Date of Service: 09/25/2024 RADIATION ONCOLOGY ON TREATMENT VISIT (OTV) NOTE Diagnosis: Cancer Staging No matching staging information was found for the patient. No diagnosis found. High risk prostate cancer TREATMENT: Radiation Treatments Active Plans Pelvic Nodes Most recent treatment: Dose planned: 250 cGy (fraction 15 on 09/25/2024) Total: Dose planned: 6,250 cGy Elapsed Days: 18 Reference Points [id number] Most recent treatment: Dose given: 250 cGy (on 09/25/2024) Total: Dose given: 3,750 cGy Elapsed Days: 18 Radiation Treatments No historical radiation treatments to show. SUBJECTIVE: He has hot flashes that occur above his waist. He denies urinary frequency or bowel frequency. He has no other symptomatic complaint. EXAM: Wt (!) 151 kg (333 lb) BMI 47.78 kg/m?? Pain Score and Location 09/25/24 1105 PainSc: 0-No pain NAD Urinary Tract Pain: 0 - None Urinary Tract Obstruction: 0 - None Urinary Retention: 0 - None Rectal Mucositis: 0 - None Hot Flashes: 0 - None KPS 90=Able to carry on normal activity. ECOG Score = 0. ASSESSMENT Experiencing anticipated side effects PLANS Continue with treatment RAD ONC PAIN PLAN: The patient is not currently having any pain that requires changes in pain management. I have seen and examined the patient on 09/25/2024. I have reviewed and edited the resident's/fellow's note. I agree with the findings and plan of care as documented in the resident's/fellow's note. Santo. documented in this encounter Plan of Treatment Not on file documented as of this encounter Visit Diagnoses Not on filedocumented in this encounter Care Teams Corrective Therapy Aide Relationship Specialty Start Date End Date J Carlos Carmichael MD [address] [facility] [address] [place] [address] PCP - General 05/22/17 Norma Mccarty MD [address] [facility] [address] [place] [address] Radiation Oncologist Radiation Oncology 06/16/24 Aleksander Jackson MD 10 [facility] [address] [place] [address] Referring Physician Medical Oncology 06/16/24 documented as of this encounter
--- OUTSIDE RECORDS SUMMARY | 2024-10-29 08:33 | XMS_ITS | Encounter Summary ---
Author Organization [facility] Address [address] [place] [address] Phone Care Team Providers Care Sole Molding Machine Operator Name Role Phone J Carlos Carmichael MD Primary Care Provider Norma Mccarty MD Unavailable [phone] Aleksander Jackson MD Unavailable [phone] Encounter Details Date Type Department Care Team (Latest Contact Info) Description 03/06/2024 Orders Only [facility] Scanning, Provider Social History Tobacco Use Types Packs/Day Years Used Date Smoking Tobacco: Never Passive Smoke Exposure: Never Smokeless Tobacco: Never Alcohol Use Standard Drinks/Week Comments Not Currently 0 (1 standard drink = 0.6 oz pur e alcohol) Sex and Gender Information Value Date Recorded Sex Assigned at Not on file Legal Sex Male 1:05 PM 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 GENERATION 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 Gender Identity Male 02/24/2020 1:23 PM CDT Sexual Orientation Straight 06/19/2019 6: 02 PM HYDRO GENERATION MANAGER documented as of this encounter Plan of Treatment Not on file documented as of this encounter Procedures Procedure Name Priority Date/Time Associated Diagnosis Comments SCAN - RADIOLOGY/IMAGING 03/06/2024 documented in this encounter Results * SCAN - RADIOLOGY/IMAGING (03/06/2024) Anatomical Region Laterality Modality Other us Provider Scanning Edited Result - Final documented in this encounter Visit Diagnoses Not on filedocumented in this encounter Care Teams Sole Molding Machine Operator Relationship Specialty Start Date End Date J Carlos Carmichael MD [address] [facility] [address] [place] [address] PCP - General 05/22/17 Norma Mccarty MD [address] [facility] [address] [place] [address] Radiation Oncologist Radiation Oncology 06/16/24 Aleksander Jackson MD 10 [facility] [address] [place] [address] Referring Physician Medical Oncology 06/16/24 documented as of this encounter
--- OUTSIDE RECORDS SUMMARY | 2024-10-29 08:33 | XMS_ITS | Encounter Summary ---
Author Organization [facility] Address [address] [place] [address] Phone Care Team Providers Care Surveillance Camera Technician Name Role Phone J Carlos Carmichael MD Primary Care Provider [phone] Norma Mccarty MD Unavailable Aleksander Jackson MD Unavailable [phone] Encounter Details Date Type Department Care Team (Latest Contact Info) Description 03/24/2024 Orders Only [facility] Scanning, Provider Social History Tobacco Use Types Packs/Day Years Used Date Smoking Tobacco: Never Passive Smoke Exposure: Never Smokeless Tobacco: Never Alcohol Use Standard Drinks/Week Comments Not Currently 0 (1 standard drink = 0.6 oz pur e alcohol) Sex and Gender Information Value Date Recorded Sex Assigned at Not on file Legal Sex Male 1:05 PM CYTOLOGY TEACHER Gender Identity Male 02/24/2020 1:23 PM CDT Sexual Orientation Straight 06/19/2019 6: 02 PM CYTOLOGY TEACHER documented as of this encounter Plan of Treatment Not on file documented as of this encounter Procedures Procedure Name Priority Date/Time Associated Diagnosis Comments CARDIOLOGY DOCUMENT SCAN 03/24/2024 documented in this encounter Results * Cardiology Document Scan (03/24/2024) Anatomical Region Laterality Modality Other us Provider Scanning CV CARDIAC SERVICES PROCEDURES Final Result documented in this encounter Visit Diagnoses Not on filedocumented in this encounter Care Teams Surveillance Camera Technician Relationship Specialty Start Date End Date J Carlos Carmichael MD [address] [facility] [address] [place] [address] PCP - General 05/22/17 Norma Mccarty MD [address] [facility] [address] [place] [address] Radiation Oncologist Radiation Oncology 06/16/24 Aleksander Jackson MD [address] [facility] [address] [place] [address] Referring Physician Medical Oncology 06/16/24 documented as of this encounter
--- NOTE | 2024-10-29 08:37 | ECG_ITS ---
Test Date: 2024-10-29 08:42:40 Measurements Intervals [place] Rate: 60 P: 10 TX: 197 QRS: -14 QRSD: 101 T: 29 QT: 405 QTc: 408 Interpretive Statements SINUS RHYTHM INFERIOR MYOCARDIAL INFARCTION [40+ ms Q WAVE AND/OR ST/T ABNORMALITY IN II/aVF], PROBABLY OLD No previous ECG available for comparison Electronically Signed On 10-29-2024 10:09:30 CDT by Huyen Whitfield M.D.
== END 2024-10-29 08:26 | disposition home or self-care (01) ==
LOC: ANHSURGERY 08:28
PROVIDERS: PCP Internal Medicine; Visit Provider Urology
DX: R94.31 Abnormal electrocardiogram [ECG] [EKG] (principal); I10 Essential (primary) hypertension
CPT/HCPCS: 93005

== ENCOUNTER 2024-11-05 00:45 | Day surgery (SDC) | payer OTHER, SELFPAY ==
[2024-10-27 15:47] VITALS: BMI 47.4
--- NOTE | 2024-10-27 15:53 | PC.NURSE ---
Report to the Outpatient Waiting Room, entrance under the green pavilion located off [facility], at time _1245_ on date _[id number]_. Planned Procedure Time: _245pm_. Time changes happen often and if your time is changed the preop area will call you the afternoon before. - You and your visitor will be asked to self-screen and do not enter if you have any COVID symptoms. Please call surgeon if you need to reschedule. - A mask is optional within the hospital at this time. Patients may have clear liquids (water, carbonated beverages, clear teas, apple juice) until 3 hours prior to surgery with a maximum of 20 ounces. - No food from midnight until time of surgery and no smoking, or chewing tobacco (or any form of nicotine). No chewing gum, candy or mints. Take only the following medications with a SIP of water on the morning of surgery: __Atenolol, Xtampza, Prednisone and Abiraterone___ DO NOT STOP ANY OF YOUR OTHER PRESCRIPTION MEDICATIONS PRIOR TO SURGERY EXCEPT THE FOLLOWING Hold all vitamins and supplements for 3 days per anesthesiologist. Medications to discontinue per physician ___Ozempic hold until after surgery, Aspirin Hold 7 days as instructed by Dr Garcia.__ Date to take last dose Please no make-up, nail montenegrin, hairspray, perfume, deodorant, or body powder the day of surgery. No jewelry (including any body piercings) or valuables the day of surgery, leave them at home. Please take a shower or bath the night before, or the morning of, surgery with an antibacterial soap. Wear comfortable, loose fitting clothing. - Jewelry must be removed prior to entering the operating room. Rings and piercings that are not removed may be cut off. - The hospital will not accept responsibility for valuables. - Please leave all valuables, including medications, at home the day of surgery. If you are going home after surgery, a licensed security patrol driver must drive you home. - NO public transportation without another adult if you receive anesthesia. - We recommend that an adult stay with you for 24 hours following discharge. - We also recommend that you do not drive, make important decision, drink alcoholic beverages, or take any drugs that were not prescribed by your health care provider for at least 24 hours after your discharge time. Follow any additional instructions given to you from your surgeon. Telephone instructions given to __Joe__and asked if any additional questions and then verbalized understanding. Patient advised to call surgeon office or pre surgery nurse liaison [phone] if any additional questions.
--- NOTE | 2024-10-28 09:21 | P.HP_ITS ---
History of Present Illness History of Present Illness Consent: Risks, benefits, and alternatives have been discussed and questions answered. Patient agrees to proceed with procedure. Chief complaint: bladder retention Narrative: Moises Elizabeth is a 63 year old male who has long history of recurrent urethral stricture and, more recently, diagnosis of prostate cancer. We attempted robotic prostatectomy in March 2024 but aborted due to difficulty ventilating while in the Trendelenburg position. He has now completed IMRT at [facility] [address] and is having recurrent obstructive voiding symptoms. Review of Systems Review of Systems: All systems reviewed & are unremarkable except as noted in HPI and below Cardiovascular: Cardiovascular: Denies chest pain, Denies lightheadedness, Denies palpitations and Denies dyspnea Respiratory: Respiratory: Denies dyspnea Gastrointestinal: Gastrointestinal: Denies diarrhea, Denies nausea and Denies vomiting Genitourinary: Genitourinary: Denies hematuria and Denies dysuria Endocrine: Endocrine: Denies palpitations [facility] Past Medical History Medical History Chronic, continuous use of opioids Hyperlipidemia Hypertension Morbid obesity Neurofibromatosis, type 1 CINDY (obstructive sleep apnea) Social History Social History Smoking status: Never smoker Alcohol intake: never Substance use: never Substance use type: does not use Living arrangements: with family Spiritual care concerns: No Meds Home Medications and Allergies Home Medications Medication Instructions Recorded Confirmed Type allopurinol 300 mg tablet 300 mg PO DAILY 08/03/19 10/27/24 History aspirin 81 mg tablet,delayed 81 mg PO DAILY 08/03/19 10/27/24 History release atenolol 50 mg tablet 50 mg PO DAILY 08/03/19 10/27/24 History calcium carbonate (Calcium 600) 600 mg PO DAILY 08/03/19 10/27/24 History felodipine 10 mg tablet,extended 10 mg PO HS 08/03/19 10/27/24 History release 24 hr finasteride 1 mg tablet 1 mg PO DAILY 08/03/19 10/27/24 History lidocaine 5 % topical patch 1 patch transdermal DIRECTED 08/03/19 10/27/24 History PRN Pain pregabalin 100 mg capsule (Lyrica) 200 mg PO BID 08/03/19 10/27/24 History simvastatin 20 mg tablet 20 mg PO DAILY 08/03/19 10/27/24 History tamsulosin 0.4 mg capsule 0.4 mg PO HS 08/03/19 10/27/24 History naldemedine 0.2 mg tablet 0.2 mg PO HS 05/14/23 10/27/24 History (Symproic) oxycodone 5 mg tablet 5 mg PO DAILY PRN Pain 05/14/23 10/27/24 History oxycodone myristate 13.5 mg 13.5 mg PO BID 05/14/23 10/27/24 History capsule sprinkle extend release 12hr(DON'T CRUSH) (Xtampza ER) multivitamin with minerals-folic 1 tablet PO DAILY 02/18/24 10/27/24 History acid 0.4 mg tablet semaglutide 1 mg/dose (4 mg/3 mL) 1 mg subcut WEEKLY 02/18/24 10/27/24 History subcutaneous pen injector (Ozempic) abiraterone 250 mg tablet 1,000 mg PO DAILY 10/27/24 10/27/24 History prednisone 5 mg tablet 5 mg PO BID 10/27/24 10/27/24 History Allergies Allergy/AdvReac Type Severity Reaction Status Date / Time No Known Allergies Allergy Verified 10/27/24 15:42 Exam Const: General: no acute distress Resp: Effort & Inspection: normal respiratory effort GI: Inspection: non-distended GI Palp: No abdominal tenderness and No Guarding due to palpation present (GI) Auscultation: normal bowel sounds Assessment and Plan Assessment and plan (1) Prostate cancer: Code(s): C61 - Malignant neoplasm of prostate Status: Acute (2) Bulbous urethral stricture: Code(s): N35.912 - Unspecified bulbous urethral stricture, male Status: Acute Assessment and Plan: * Cystoscopy, urethral dilatation
[2024-11-05] VITALS (7 sets, daily range): BP systolic 112–143; BP diastolic 60–93; PULSE 50–56; RESP 12–20; TEMP 36.2–36.7; O2SAT 94–100
--- OUTSIDE RECORDS SUMMARY | 2024-11-05 00:48 | XMS_ITS | Encounter Summary ---
Author Organization [facility] Address [address] [place] [address] Phone Care Team Providers Care Per Diem Rn Name Role Phone J Carlos Carmichael MD Primary Care Provider [phone] Meredith Mandujano RN Unavailable Unavailable Norma Mccarty MD Unavailable Aleksander Jackson MD Unavailable [phone] Encounter Details Date Type Department Care Team (Latest Contact Info) Description 09/17/2011 Orders Only [facility] Scanning, Provider Social History Tobacco Use Types Packs/Day Years Used Date Smoking Tobacco: Never Assessed Sex and Gender Information Value Date Recorded Sex Assigned at Not on file Legal Sex Male 1:05 PM SALVAGE CUTTER Gender Identity Male 02/24/2020 1:23 PM CDT Sexual Orientation Straight 06/19/2019 6: 02 PM SALVAGE CUTTER documented as of this encounter Plan of [...] on filedocumented in this encounter Care Teams Per Diem Rn Relationship Specialty Start Date End Date J Carlos Carmichael MD PCP - General 05/22/17 Meredith Mandujano, RN Registered Nurse Gastroenterology 12/26/18 03/14/21 Norma Mccarty MD [address] [facility] [address] [place], [place] [address] Radiation Oncologist Radiation Oncology 06/16/24 Aleksander Jackson MD 10 [facility] [address] [place] [address] Referring Physician Medical Oncology 06/16/24 documented as of this encounter
--- OUTSIDE RECORDS SUMMARY | 2024-11-05 00:49 | XMS_ITS | Clinical Summary ---
Author Organization [facility] Address [address] [place] [address] Care Team Providers Care Electrical Calibrator Name Role Phone J Carlos Carmichael MD Primary Care Provider Norma Mccarty MD Unavailable [phone] Aleksander Jackson MD Unavailable Allergies No known active allergies Medications tamsulosin [...] 07/01/2024 Assessment & Plan (07/01/2024 8:47 AM UTILIZATION REVIEW SPECIALIST): Will work on weight loss and blood pressure control going forward. Prostate cancer 05/27/2024 Assessment & Plan (07/01/2024 8:47 AM UTILIZATION REVIEW SPECIALIST): Follow up with oncology Family history of [...] (04/27/2020): Added automatically from request for surgery [id number] Idiopathic chronic gout without tophus 0 Essential hypertension 03/15/2020 Benign prostatic hyperplasia with lower urinary tract symptoms 03/15/2020 Abdominal pain 02/24/2020 Venous insufficiency 01/28/2020 Overview (01/28/2020): Added automatically from request for surgery [id number] Traumatic open wound of left lower leg with infe ction 07/13/2019 Venous stasis of both lower extremities 07/05/19 20 Edema of both lower extremities 06/02/2019 Wound of left leg 06/02/2019 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 Overview (12/04/2018): Added automatically from request for surgery [id number] Neurofibromatosis ([facility]) 08/21/2018 Neurofibroma 01/02/2017 Sleep apnea, unspecified 11/16/2015 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 Postlaminectomy syndrome of thoracic region 06/25 Diabetes mellitus 10/22/2011 Obesity 10/22/2011 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 Encounters Date Type Department Care Team Description 10/21/2024 Telephone [facility] Radiation Oncology [address] [facility] [place] [address] China Pete RN 10/21/2024 Telephone [facility] Radiation Oncology [address] [place] [address] China Pete RN 10/15/2024 11:00 AM CDT Infusion [facility] [address] [facility] [place] [address] Prostate cancer (HCC) (Primary Dx) 10/15/2024 10:30 AM CDT Office Visit [facility] [address] [facility] [address] [place] [address] Aleksander Jackson MD Prostate cancer (HCC) (Primary Dx) 10/15/2024 9:30 AM CDT Lab [facility] [address] [facility] [place] [address] Prostate cancer (HCC) 10/14/2024 10:19 AM CDT - 10/14/2024 11:59 PM CDT Hospital Encounter [facility] Radiation Oncology [address] [facility] [place] [address] Norma Mccarty MD Discharge Disposition: Discharge to home or self care 10/14/2024 Completion of Therapy [facility] Radiation [facility]cology [address] [facility] [place] [address] Norma Mccarty MD 10/14/2024 Documentation [facility] Radiation Oncology [address] [place] [address] China Pete RN 10/14/2024 Orders Only RAD ONC TREATMENTS Miscellaneous, Not In File 10/13/2024 10:19 AM CDT - 10/13/2024 11:59 PM CDT Hospital Encounter [facility] Radiation Oncology [address] [place] [address] Norma Mccarty MD Discharge Disposition: Discharge to home or self care 10/13/2024 Orders Only RAD ONC TREATMENTS Miscellaneous, Not In File 10/12/2024 9:13 AM CDT - 10/12/2024 11:59 PM CDT Hospital Encounter [facility] Radiation [facility]cology [address] [facility] [place] [address] Norma Mccarty MD Discharge Disposition: Discharge to home or self care 10/12/2024 Orders Only RAD ONC TREATMENTS Miscellaneous, Not In File 10/09/2024 7:15 AM CDT - 10/09/2024 11:59 PM CDT Hospital Encounter [facility] Radiation Oncology [address] [place] [address] Norma Mccarty MD Discharge Disposition: Discharge to home or self care 10/09/2024 Orders Only RAD ONC TREATMENTS Miscellaneous, Not In File 10/08/2024 10:39 AM CDT - 10/08/2024 11:59 PM CDT Hospital Encounter [facility] Radiation Oncology [address] [facility] [place] [address] Norma Mccarty MD Discharge Disposition: Discharge to home or self care 10/08/2024 Orders Only RAD ONC TREATMENTS Miscellaneous, Not In File 10/07/2024 9:59 AM CDT - 10/07/2024 11:59 PM CDT Hospital Encounter [facility] Radiation [facility]cology [address] [facility] [place] [address] Norma Mccarty MD Discharge Disposition: Discharge to home or self care 10/07/2024 OTV [facility] Radiation Oncology [address] [facility] [place] [address] Joey Cordero MD 10/07/2024 Orders Only RAD ONC TREATMENTS Miscellaneous, Not In File 10/07/2024 Telephone [facility] Radiation Oncology [address] [facility] [place] [address] China Pete RN 10/06/2024 4:04 PM CDT - 10/06/2024 11:59 PM CDT Hospital Encounter [facility] Radiation Oncology [address] [facility] [place] [address] Norma Mccarty MD Discharge Disposition: Discharge to home or self care 10/06/2024 Orders Only RAD ONC TREATMENTS Miscellaneous, Not In File 10/05/2024 7:14 AM CDT - 10/05/2024 11:59 PM CDT Hospital Encounter [facility] Rad[facility] [address] [facility] [place] [address] Norma Mccarty MD Discharge Disposition: Discharge to home or self care 10/05/2024 [facility] Radiation Oncology [address] [place] [address] [place] [address] China Pete RN 10/05/2024 Orders Only RAD ONC TREATMENTS Miscellaneous, Not In File 10/02/2024 10:23 AM CDT - 10/02/2024 11:59 PM CDT Hospital Encounter [facility] Radiation Oncology [facility] [place] [address] Norma Mccarty MD Discharge Disposition: Discharge to home or self care 10/02/2024 OTV [facility] Radiation Oncology [address] [place] [address] Joey Cordero MD 10/02/2024 Orders Only RAD ONC TREATMENTS Miscellaneous, Not In File 10/01/2024 2:53 PM CDT - 10/01/2024 11:59 PM CDT Hospital Encounter [facility] Radiation Oncology [address] [facility] [place] [address] Norma Mccarty MD Discharge Disposition: Discharge to home or self care 10/01/2024 Orders Only RAD ONC TREATMENTS Miscellaneous, Not In File 09/30/2024 9:32 AM CDT - 09/30/2024 11:59 PM CDT Hospital Encounter [facility] Radiation Oncology [address] [place] [address] Norma Mccarty MD Discharge Disposition: Discharge to home or self care 09/30/2024 Orders Only RAD ONC TREATMENTS Miscellaneous, Not In File 09/29/2024 2:31 PM CDT - 09/29/2024 11:59 PM CDT Hospital Encounter [facility] Radiation Oncology [address] [place] [address] Norma Mccarty MD Discharge Disposition: Discharge to home or self care 09/29/2024 Orders Only RAD ONC TREATMENTS Miscellaneous, Not In File 09/28/2024 9:20 AM CDT - 09/28/2024 11:59 PM CDT Hospital Encounter [facility] Radiation [facility]cology [address] [place] [address] Norma Mccarty MD Discharge Disposition: Discharge to home or self care 09/28/2024 Orders Only RAD ONC TREATMENTS Miscellaneous, Not In File 09/25/2024 10:34 AM CDT - 09/25/2024 11:59 PM CDT Hospital Encounter [facility] Radiation Oncology [address] [place] [address] Norma Mccarty MD Discharge Disposition: Discharge to home or self care 09/25/2024 OTV [facility] Radiation Oncology [address] [place] [address] Chase Farah MD PhD 09/25/2024 Orders Only RAD ONC TREATMENTS Miscellaneous, Not In File 09/24/2024 10:15 AM CDT - 09/24/2024 11:59 PM CDT Hospital Encounter [facility] Radiation Oncology [address] [place] [address] [place] [address] Norma Mccarty MD Discharge Disposition: Discharge to home or self care 09/24/2024 Telephone [facility] Radiation Oncology [address] [place] [address] China Pete RN 09/24/2024 Orders Only RAD ONC TREATMENTS Miscellaneous, Not In File 09/23/2024 7:15 AM CDT - 09/23/2024 11:59 PM CDT Hospital Encounter [facility] Radiation Oncology [address] [place] [address] Norma Mccarty MD Discharge Disposition: Discharge to home or self care 09/23/2024 Telephone [facility] Radiation Oncology [address] [place] [address] China Pete RN 09/23/2024 Orders Only RAD ONC TREATMENTS Miscellaneous, Not In File 09/22/2024 10:26 AM CDT - 09/22/2024 11:59 PM CDT Hospital Encounter [facility] Radiation Oncology [address] [place] [address] Norma Mccarty MD Discharge Disposition: Discharge to home or self care 09/22/2024 Orders Only RAD ONC TREATMENTS Miscellaneous, Not In File 09/21/2024 10:40 AM CDT - 09/21/2024 11:59 PM CDT Hospital Encounter [facility] Radiation Oncology [address] [place] [address] Norma Mccarty MD Discharge Disposition: Discharge to home or self care 09/21/2024 Orders Only RAD ONC TREATMENTS Miscellaneous, Not In File 09/18/2024 9:17 AM CDT - 09/18/2024 11:59 PM CDT Hospital Encounter [facility] [address] [facility] [place] [address] Norma Mccarty MD Discharge Disposition: Discharge to home or self care 09/18/2024 [facility] Radiation Oncology [address] [place] [address] China Pete RN 09/18/2024 Orders Only RAD ONC TREATMENTS Miscellaneous, Not In File 09/17/2024 9:16 AM CDT - 09/17/2024 11:59 PM CDT Hospital Encounter [facility] Radiation Oncology [address] [place] [address] Norma Mccarty MD Discharge Disposition: Discharge to home or self care 09/17/2024 Orders Only RAD ONC TREATMENTS Miscellaneous, Not In File 09/16/2024 9:23 AM CDT - 09/16/2024 11:59 PM CDT Hospital Encounter [facility] Radiation Oncology [address] [place] [address] Norma Mccarty MD Discharge Disposition: Discharge to home or self care 09/16/2024 Orders Only RAD ONC TREATMENTS Miscellaneous, Not In File 09/16/2024 Orders Only [facility] [address] [place] [phone] Aleksander Jackson MD 09/16/2024 Orders Only [facility] [address] [place] [phone] Ba Yoon RN 09/15/2024 10:58 AM CDT - 09/15/2024 11:59 PM CDT Hospital Encounter [facility] Radiation Oncology [facility] [place] [address] Norma Mccarty MD Discharge Disposition: Discharge to home or self care 09/15/2024 OTV [facility] Radiation Oncology [address] [facility] [place] [address] Bassem Lagos MD 09/15/2024 Orders Only RAD ONC TREATMENTS Miscellaneous, Not In File 09/14/2024 8:44 AM CDT - 09/14/2024 11:59 PM CDT Hospital Encounter [facility] Radiation Oncology [address] [place] [address] Norma Mccarty MD Discharge Disposition: Discharge to home or self care 09/14/2024 [facility] Radiation Oncology [address] [place] [address] Chian Pete RN 09/14/2024 Orders Only RAD ONC TREATMENTS Miscellaneous, Not In File 09/11/2024 10:52 AM CDT - 09/11/2024 11:59 PM CDT Hospital Encounter [facility] Radiation Oncology [address] [place] [address] Norma Mccarty MD Discharge Disposition: Discharge to home or self care 09/11/2024 OTV [facility] Radiation Oncology [address] [place] [address] Norma Mccarty MD 09/11/2024 Orders Only RAD ONC TREATMENTS Miscellaneous, Not In File 09/10/2024 10:08 AM CDT - 09/10/2024 11:59 PM CDT Hospital Encounter [facility] Radiation Oncology [address] [place] [address] Norma Mccarty MD Discharge Disposition: Discharge to home or self care 09/10/2024 Orders Only RAD ONC TREATMENTS Miscellaneous, Not In File 09/09/2024 9:11 AM CDT - 09/09/2024 11:59 PM CDT Hospital Encounter [facility] Rad[facility] Oncology [address] [facility] [place] [address] Norma Mccarty MD Discharge Disposition: Discharge to home or self care 09/09/2024 Orders Only RAD ONC TREATMENTS Miscellaneous, Not In File 09/08/2024 10:15 AM CDT - 09/08/2024 11:59 PM CDT Hospital Encounter [facility] Radiation Oncology [address] [place] [address] Norma Mccarty MD Discharge Disposition: Discharge to home or self care 09/08/2024 Orders Only RAD ONC TREATMENTS Miscellaneous, Not In File 09/07/2024 10:30 AM CDT - 09/07/2024 11:59 PM CDT Hospital Encounter [facility] Radiation Oncology [address] [place] [address] Discharge Disposition: Discharge to home or self care 09/07/2024 Orders Only RAD ONC TREATMENTS Miscellaneous, Not In File 09/02/2024 8:30 PM CDT - 09/02/2024 11:59 PM CDT Hospital Encounter [facility] Radiation Oncology [address] [place] [address] Norma Mccarty MD Discharge Disposition: Discharge to home or self care 08/27/2024 10:45 AM UTILIZATION REVIEW SPECIALIST Office Visit [facility] [address] [facility] [address] [place] [address] Aleksander Jackson MD Prostate cancer (HCC) (Primary Dx) 08/27/2024 9:45 AM UTILIZATION REVIEW SPECIALIST Lab [facility] [address] [facility] [place] [address] Prostate cancer (HCC) 08/24/2024 12:23 PM UTILIZATION REVIEW SPECIALIST - 08/24/2024 11:59 PM UTILIZATION REVIEW SPECIALIST Hospital Encounter [facility] Radiation Oncology [address] [place] [address] Norma Mccarty MD Discharge Disposition: Discharge to home or self care 08/24/2024 11:37 AM UTILIZATION REVIEW SPECIALIST - 08/24/2024 11:59 PM UTILIZATION REVIEW SPECIALIST Hospital Encounter [facility] Radiation Oncology [address] [place] [address] Norma Mccarty MD Discharge Disposition: Discharge to home or self care 08/24/2024 10:00 AM UTILIZATION REVIEW SPECIALIST - 08/24/2024 11:59 PM UTILIZATION REVIEW SPECIALIST Hospital Encounter [facility] Radiation Oncology [address] [place] [address] Norma Mccarty MD Prostate cancer (HCC) (Primary Dx) Discharge Disposition: Discharge to home or self care 08/24/2024 Orders Only [facility] [address] [place], [place] [address] [address] Norma Mccarty MD 08/24/2024 Orders Only [facility] [address] [place], [place] [address] [address] Norma Mccarty MD 08/17/2024 Telephone [facility] [address] [place] [phone] Maryana Noe CMA 08/14/2024 Telephone [facility] Radiation Oncology [address] [place] [address] Norma Mccarty MD 08/14/2024 Results Follow-Up [facility] [address] [place], [place] [address] [address] Serena Mendes RN 08/13/2024 12:25 PM UTILIZATION REVIEW SPECIALIST - 08/13/2024 11:59 PM UTILIZATION REVIEW SPECIALIST Hospital Encounter [facility] [address] [facility] Medical Office Building 2 [facility] [place] [address] Prostate cancer (HCC) Discharge Disposition: Discharge to [...] on file Legal Sex Male 1:05 PM UTILIZATION REVIEW SPECIALIST Gender Identity Male 02/24/2020 1:23 PM CDT Sexual Orientation Straight 06/19/2019 6: 02 PM UTILIZATION REVIEW SPECIALIST Obstetrics History Last Filed Vital Signs Vital [...] cm (5' 10 ) 07/01/2024 10:51 AM UTILIZATION REVIEW SPECIALIST Body Mass Index 47.12 07/01/2024 10:51 AM UTILIZATION REVIEW SPECIALIST Plan of Treatment Health Maintenance Due Date Last Done Comments Albumin Creatinine Ratio, Urine 1959 Depression Screening 1959 Hepatitis C Screening 1959 Dilated Eye Exam 1959 Foot Exam 1959 Hepatitis B Screening 11/19/1977 Regular Well Visit/Exam 18-64 11/19/1977 Covid-19 Vaccine (2023-07 5 season) 2024 09/08/2021, 09/15/2020, 08/25/2020 Hemoglobin A1C 11/25/2024 05/27/2024, 06/2023, 08/15/2023, Additional history exists Lipid Panel 12/22/2024 12/23/2023, 12/23, 07/17/2022, Additional history exists Influenza Vaccine (Season Ended) 2025 04/12/20, 03/24/2019 eGFR 10/15/2025 10/15/2024, 11/2024, 07/23/2024, Additional history exists Prostate Cancer Screening-PSA 10/15/2026, 08/27/2024, 07/23/2024, Additional history exists Colon Cancer Screening-Colonoscopy 07/15/2030 07/15/2020 DTaP/Tdap/Td Vaccine (4 - Td or Tdap) 07/17/2032 07/17/2022, 09/07/2018, 08/12/2015 Zoster Vaccine Completed 03/23/2018, 02/23, 01/06/2018, Additional history exists Colon Cancer Screening-CT Colonogra [id number]|2024-11-05 06:23:23|2024-11-05 06:23:23|[id number]||||"History and Physical Update Update Date/Time: 11/05/24 06:23 History and Physical has been reviewed, including an updated exam of the patient. There are NO changes in the patient's condition. Risks, benefits, and alternatives have been discussed and questions answered. Patient agrees to proceed with procedure."
--- OUTSIDE RECORDS SUMMARY | 2024-11-05 00:49 | XMS_ITS ---
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 Prostate cancer 05/27/2024 Assessment & Plan (07/01/2024 8:47 AM COMPRESSION MOLDING MACHINE OPERATOR): Follow up with oncology Family history of [...] (04/27/2020): Added automatically from request for surgery [id number] Idiopathic chronic gout without tophus 0 Essential hypertension 03/15/2020 Benign prostatic hyperplasia with lower urinary tract symptoms 03/15/2020 Abdominal pain 02/24/2020 Venous insufficiency 01/28/2020 Overview (01/28/2020): Added automatically from request for surgery [id number] Traumatic open wound of left lower leg with infe ction 07/13/2019 Venous stasis of both lower extremities 07/05/19 Edema of both lower extremities 06/02/2019 Wound of left leg 06/02/2019 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
--- OUTSIDE RECORDS SUMMARY | 2024-11-05 00:49 | XMS_ITS | Encounter Summary ---
Author Organization [facility] Address [address] [place] [address] Phone Care Team Providers Care Fabric Pattern Grader Name Role Phone J Carlos Carmichael MD Primary Care Provider [phone] Norma Mccarty MD Unavailable Aleksander Jackson MD Unavailable [phone] Encounter Details Date Type Department Care Team [...] on file Legal Sex Male 1:05 PM RELAY RECORD CLERK Gender Identity Male 02/24/2020 1:23 PM CDT Sexual Orientation Straight 06/19/2019 6: 02 PM RELAY RECORD CLERK documented as of this encounter Plan of [...] on filedocumented in this encounter Care Teams Fabric Pattern Grader Relationship Specialty Start Date End Date J Carlos Carmichael MD PCP - General 05/22/17 Norma Mccarty MD [address] [facility] [address] [place] [address] Radiation Oncologist Radiation Oncology 06/16/24 Aleksander Jackson MD [address] [address] Referring Physician Medical Oncology 06/16/24 documented as of this encounter
--- OUTSIDE RECORDS SUMMARY | 2024-11-05 00:49 | XMS_ITS | Clinical Summary ---
Author Organization [facility] [employer] Address [address] [place] [address] Care Team Providers Care Research Biologist Name Role Phone Unavailable Primary Care Provider Unavailabl e Source Comments [facility] [employer],non-owned Affiliates and Associated Physician Practices is amultiple site organization consisting of ambulatory clinics and hospital sitesin [place], [place], [place] and [place]. This disclosure is being madepursuant to the Care Everywhere program and may not contain all information available regarding this patient. Last updated 18.Maclear Allergies No known active allergies Medications * [...]
--- OUTSIDE RECORDS SUMMARY | 2024-11-05 00:49 | XMS_ITS | Encounter Summary ---
Author Organization [facility] Address [address] [place] [address] Phone Care Team Providers Care Cutter Operator Asbestos Shingle Name Role Phone J Carlos Carmichael MD Primary Care Provider [phone] Norma Mccarty MD Unavailable Aleksander Jackson MD Unavailable [phone] Encounter Details Date Type Department Care Team [...] on file Legal Sex Male 1:05 PM AIR EXPORT LOGISTICS MANAGER Gender Identity Male 02/24/2020 1:23 PM CDT Sexual Orientation Straight 06/19/2019 6: 02 PM AIR EXPORT LOGISTICS MANAGER documented as of this encounter Plan [...] on filedocumented in this encounter Care Teams Cutter Operator Asbestos Shingle Relationship Specialty Start Date End Date J Carlos Carmichael MD PCP - General 05/22/17 Norma Mccarty MD [address] [facility]] [address] [place], [place] [id number] Radiation Oncologist Radiation Oncology 06/16/24 Aleksander Jackson MD [address] [facility] [address] [place] [address] Referring Physician Medical Oncology 06/16/24 documented as of this encounter
--- OUTSIDE RECORDS SUMMARY | 2024-11-05 00:49 | XMS_ITS | Referral Summary ---
Author Organization [facility] Address [address] [place] [address] Care Team Providers Care License Inspector Name Role Phone J Carlos Carmichael MD Primary Care Provider Norma Mccarty MD Unavailable Aleksander Jackson MD Unavailable Encounters Date Type Department Care Team Description 10/21/2024 Telephone [facility] Radiation Oncology [address] [facility] Advanced [place] [address] China Pete, RN 10/21/2024 Telephone [facility] Radiation Oncology [address] [facility] [place] [address] China Pete, RN 10/15/2024 10:30 AM CDT Office Visit [facility] Oncology [address] [place] [address] [address] [place] [id number] Aleksander Jackson MD Prostate cancer (HCC) (Primary Dx) 10/15/2024 9:30 AM CDT Lab [facility] at [address] [address] Prostate cancer (HCC) 10/15/2024 11:00 AM CDT Infusion [facility] at [facility] [address] [place] [address] Prostate cancer (HCC) (Primary Dx) 10/14/2024 Completion of Therapy [facility] Radiation Oncology [address] [place] [address] Norma Mccarty MD 10/14/2024 Documentation [facility] Advanced Medicine Radiation Oncology [address] [place] [address] China Pete RN 10/14/2024 Orders Only RAD ONC TREATMENTS Miscellaneous, Not In File 10/14/2024 10:19 AM CDT - 10/14/2024 11:59 PM CDT Hospital Encounter [facility] Radiation Oncology [address] [place] [address] Norma Mccarty MD Discharge Disposition: Discharge to home or self care 10/13/2024 Orders Only RAD ONC TREATMENTS Miscellaneous, Not In File 10/13/2024 10:19 AM CDT - 10/13/2024 11:59 PM CDT Hospital Encounter [facility] Advanced Medicine Radiation Oncology [address] [place] [address] Norma Mccarty MD Discharge Disposition: Discharge to home or self care 10/12/2024 Orders Only RAD ONC TREATMENTS Miscellaneous, Not In File 10/12/2024 9:13 AM CDT - 10/12/2024 11:59 PM CDT Hospital Encounter [facility] Advanced Medicine Radiation Oncology [address] [place] [address] Norma Mccarty MD Discharge Disposition: Discharge to home or self care 10/09/2024 Orders Only RAD ONC TREATMENTS Miscellaneous, Not In File 10/09/2024 7:15 AM CDT - 10/09/2024 11:59 PM CDT Hospital Encounter [facility] Radiation Oncology [address] [facility] [place] [address] Norma Mccarty MD Discharge Disposition: Discharge to home or self care 10/08/2024 Orders Only RAD ONC TREATMENTS Miscellaneous, Not In File 10/08/2024 10:39 AM CDT - 10/08/2024 11:59 PM CDT Hospital Encounter [facility] Radiation Oncology [address] [facility] [place] [address] Norma Mccarty MD Discharge Disposition: Discharge to home or self care 10/07/2024 OTV [facility] Advanced Medicine Radiation Oncology [address] [place] [address] Joey Cordero MD 10/07/2024 Orders Only RAD ONC TREATMENTS Miscellaneous, Not In File 10/07/2024 Telephone [facility] Advanced Medicine Radiation Oncology [address] [place] [address] [place] [address] China Pete RN 10/07/2024 9:59 AM CDT - 10/07/2024 11:59 PM CDT Hospital Encounter [facility] Advanced Medicine Radiation Oncology [address] [place] [address] Norma Mccarty MD Discharge Disposition: Discharge to home or self care 10/06/2024 Orders Only RAD ONC TREATMENTS Miscellaneous, Not In File 10/06/2024 4:04 PM CDT - 10/06/2024 11:59 PM CDT Hospital Encounter [facility] Radiation Oncology [address] [place] [address] Norma Mccarty MD Discharge Disposition: Discharge to home or self care 10/05/2024 Telephone [facility] Advanced Medicine Radiation Oncology [address] [place] [address] China Pete RN 10/05/2024 Orders Only RAD ONC TREATMENTS Miscellaneous, Not In File 10/05/2024 7:14 AM CDT - 10/05/2024 11:59 PM CDT Hospital Encounter [facility] Radiation Oncology [address] [facility] [place] [address] Norma Mccarty MD Discharge Disposition: Discharge to home or self care 10/02/2024 OTV [facility] Radiation Oncology [address] [facility] [place] [address] Joey Cordero MD 10/02/2024 Orders Only RAD ONC TREATMENTS Miscellaneous, Not In File 10/02/2024 10:23 AM CDT - 10/02/2024 11:59 PM CDT Hospital Encounter [facility] Radiation Oncology [address] [place] [address] Norma Mccarty MD Discharge Disposition: Discharge to home or self care 10/01/2024 Orders Only RAD ONC TREATMENTS Miscellaneous, Not In File 10/01/2024 2:53 PM CDT - 10/01/2024 11:59 PM CDT Hospital Encounter [facility] Radiation Oncology [address] [place] [address] Norma Mccarty MD Discharge Disposition: Discharge to home or self care 09/30/2024 Orders Only RAD ONC TREATMENTS Miscellaneous, Not In File 09/30/2024 9:32 AM CDT - 09/30/2024 11:59 PM CDT Hospital Encounter [facility] Radiation Oncology [address] [place] [address] Norma Mccarty MD Discharge Disposition: Discharge to home or self care 09/29/2024 Orders Only RAD ONC TREATMENTS Miscellaneous, Not In File 09/29/2024 2:31 PM CDT - 09/29/2024 11:59 PM CDT Hospital Encounter [facility] Radiation Oncology [address] [facility] [place] [address] Norma Mccarty MD Discharge Disposition: Discharge to home or self care 09/28/2024 Orders Only RAD ONC TREATMENTS Miscellaneous, Not In File 09/28/2024 9:20 AM CDT - 09/28/2024 11:59 PM CDT Hospital Encounter [facility] Radiation Oncology [address] [facility] [place] [address] Norma Mccarty MD Discharge Disposition: Discharge to home or self care 09/25/2024 OTV [facility] Advanced Medicine Radiation Oncology [address] [place] [address] Chase Farah MD PhD 09/25/2024 Orders Only RAD ONC TREATMENTS Miscellaneous, Not In File 09/25/2024 10:34 AM CDT - 09/25/2024 11:59 PM CDT Hospital Encounter [facility] Radiation Oncology [address] [place] [address] Norma Mccarty MD Discharge Disposition: Discharge to home or self care 09/24/2024 Telephone [facility] Advanced Medicine Radiation Oncology [address] [place] [address] Advanced [place] [address] China Pete RN 09/24/2024 Orders Only RAD ONC TREATMENTS Miscellaneous, Not In File 09/24/2024 10:15 AM CDT - 09/24/2024 11:59 PM CDT Hospital Encounter [facility] Radiation Oncology [address] [place] [address] Norma Mccarty MD Discharge Disposition: Discharge to home or self care 09/23/2024 Telephone [facility] Radiation Oncology [address] [place] [address] China Pete RN 09/23/2024 Orders Only RAD ONC TREATMENTS Miscellaneous, Not In File 09/23/2024 7:15 AM CDT - 09/23/2024 11:59 PM CDT Hospital Encounter [facility] Radiation Oncology [address] [place] [address] Norma Mccarty MD Discharge Disposition: Discharge to home or self care 09/22/2024 Orders Only RAD ONC TREATMENTS Miscellaneous, Not In File 09/22/2024 10:26 AM CDT - 09/22/2024 11:59 PM CDT Hospital Encounter [facility] Radiation Oncology [address] [place] [address] Norma Mccarty MD Discharge Disposition: Discharge to home or self care 09/21/2024 Orders Only RAD ONC TREATMENTS Miscellaneous, Not In File 09/21/2024 10:40 AM CDT - 09/21/2024 11:59 PM CDT Hospital Encounter [facility] Radiation Oncology [address] [place] [address] Norma Mccarty MD Discharge Disposition: Discharge to home or self care 09/18/2024 Telephone [facility] Advanced [facility] Radiation Oncology [address] [place] [address] China Pete RN 09/18/2024 Orders Only RAD ONC TREATMENTS Miscellaneous, Not In File 09/18/2024 9:17 AM CDT - 09/18/2024 11:59 PM CDT Hospital Encounter [facility] Advanced Medicine Radiation Oncology [address] [place] [address] Norma Mccarty MD Discharge Disposition: Discharge to home or self care 09/17/2024 Orders Only RAD ONC TREATMENTS Miscellaneous, Not In File 09/17/2024 9:16 AM CDT - 09/17/2024 11:59 PM CDT Hospital Encounter [facility] Radiation Oncology [address] [place] [address] Norma Mccarty MD Discharge Disposition: Discharge to home or self care 09/16/2024 Orders Only RAD ONC TREATMENTS Miscellaneous, Not In File 09/16/2024 Orders Only [facility] Oncology [address] [place] [phone] Aleksander Jackson MD 09/16/2024 Orders Only [facility] Oncology [address] [place] [phone] Ba Yoon RN 09/16/2024 9:23 AM CDT - 09/16/2024 11:59 PM CDT Hospital Encounter [facility] Advanced Medicine Radiation Oncology [address] [place] [address] Norma Mccarty MD Discharge Disposition: Discharge to home or self care 09/15/2024 OTV [facility] Radiation Oncology [address] [place] [address] Bassem Lagos MD 09/15/2024 Orders Only RAD ONC TREATMENTS Miscellaneous, Not In File 09/15/2024 10:58 AM CDT - 09/15/2024 11:59 PM CDT Hospital Encounter [facility] Radiation Oncology [address] [place] [address] Norma Mccarty MD Discharge Disposition: Discharge to home or self care 09/14/2024 Telephone [facility] Radiation Oncology [address] [place] [address] China Pete RN 09/14/2024 Orders Only RAD ONC TREATMENTS Miscellaneous, Not In File 09/14/2024 8:44 AM CDT - 09/14/2024 11:59 PM CDT Hospital Encounter [facility] Radiation Oncology [address] [place] [address] Norma Mccarty MD Discharge Disposition: Discharge to home or self care 09/11/2024 OTV [facility] Radiation Oncology [address] [place] [address] Norma Mccarty MD 09/11/2024 Orders Only RAD ONC TREATMENTS Miscellaneous, Not In File 09/11/2024 10:52 AM CDT - 09/11/2024 11:59 PM CDT Hospital Encounter [facility] Radiation Oncology [address] [place] [address] Norma Mccarty MD Discharge Disposition: Discharge to home or self care 09/10/2024 Orders Only RAD ONC TREATMENTS Miscellaneous, Not In File 09/10/2024 10:08 AM CDT - 09/10/2024 11:59 PM CDT Hospital Encounter [facility] Radiation Oncology [address] [place] [address] Norma Mccarty MD Discharge Disposition: Discharge to home or self care 09/09/2024 Orders Only RAD ONC TREATMENTS Miscellaneous, Not In File 09/09/2024 9:11 AM CDT - 09/09/2024 11:59 PM CDT Hospital Encounter [facility] Radiation Oncology [address] [place] [address] Norma Mccarty MD Discharge Disposition: Discharge to home or self care 09/08/2024 Orders Only RAD ONC TREATMENTS Miscellaneous, Not In File 09/08/2024 10:15 AM CDT - 09/08/2024 11:59 PM CDT Hospital Encounter [facility] Radiation Oncology [address] [place] [address] Norma Mccarty MD Discharge Disposition: Discharge to home or self care 09/07/2024 Orders Only RAD ONC TREATMENTS Miscellaneous, Not In File 09/07/2024 10:30 AM CDT - 09/07/2024 11:59 PM CDT Hospital Encounter [facility] Advanced Medicine Radiation Oncology [address] [place] [address] Discharge Disposition: Discharge to home or self care 09/02/2024 8:30 PM CDT - 09/02/2024 11:59 PM CDT Hospital Encounter [facility] Advanced [facility] Radiation Oncology [address] [place] [address] Norma Mccarty MD Discharge Disposition: Discharge to home or self care 08/27/2024 10:45 AM SPECIAL EQUIPMENT TECHNICIAN Office Visit [facility] Oncology [address] [facility] [address] [place] [address] Aleksander Jackson MD Prostate cancer (HCC) (Primary Dx) 08/27/2024 9:45 AM SPECIAL EQUIPMENT TECHNICIAN Lab [facility] at [facility] [address] [place] [address] Prostate cancer (HCC) 08/24/2024 Orders Only [facility] Radiation Oncology [address] [place] [address] [address] Norma Mccarty MD 08/24/2024 Orders Only [facility] Radiation Oncology [address] [facility] [place] [address] Norma Mccarty MD 08/24/2024 12:23 PM SPECIAL EQUIPMENT TECHNICIAN - 08/24/2024 11:59 PM SPECIAL EQUIPMENT TECHNICIAN Hospital Encounter [facility] Advanced Medicine Radiation Oncology [address] [place] [address] Norma Mccarty MD Discharge Disposition: Discharge to home or self care 08/24/2024 11:37 AM SPECIAL EQUIPMENT TECHNICIAN - 08/24/2024 11:59 PM SPECIAL EQUIPMENT TECHNICIAN Hospital Encounter [facility] Radiation Oncology [address] [place] [address] Norma Mccarty MD Discharge Disposition: Discharge to home or self care 08/24/2024 10:00 AM SPECIAL EQUIPMENT TECHNICIAN - 08/24/2024 11:59 PM SPECIAL EQUIPMENT TECHNICIAN Hospital Encounter [facility] Advanced Medicine Radiation Oncology [address] [place] [address] Norma Mccarty MD Prostate cancer (HCC) (Primary Dx) Discharge Disposition: Discharge to home or self care 08/17/2024 Telephone [facility] Oncology [address] [place] [address] Maryana Noe CMA 08/14/2024 Telephone [facility] Radiation Oncology [address] [place] [address] Norma Mccarty MD 08/14/2024 Results Follow-Up [facility] Radiation Oncology [address] [place] [address] Serena Mendes RN 08/13/2024 12:25 PM SPECIAL EQUIPMENT TECHNICIAN - 08/13/2024 11:59 PM SPECIAL EQUIPMENT TECHNICIAN Hospital Encounter [facility] Imaging [address] [facility] Medical Office Building [address] [place] [address] Prostate cancer (HCC) Discharge Disposition: Discharge to [...] 07/01/2024 Assessment & Plan (07/01/2024 8:47 AM SPECIAL EQUIPMENT TECHNICIAN): Will work on weight loss and blood pressure control going forward. Prostate cancer 05/27/2024 Assessment & Plan (07/01/2024 8:47 AM SPECIAL EQUIPMENT TECHNICIAN): Follow up with oncology Family history of [...] (04/27/2020): Added automatically from request for surgery [id number] Idiopathic chronic gout without tophus 0 Essential hypertension 03/15/2020 Benign prostatic hyperplasia with lower urinary tract symptoms 03/15/2020 Abdominal pain 02/24/2020 Venous insufficiency 01/28/2020 Overview (01/28/2020): Added automatically from request for surgery [id number] Traumatic open wound of left lower leg with infe ction 07/13/2019 Venous stasis of both lower extremities 07/05/19 20 Edema of both lower extremities 06/02/2019 Wound of left leg 06/02/2019 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 Overview (12/04/2018): Added automatically from request for surgery [id number] Neurofibromatosis ([facility]) 08/21/2018 Neurofibroma 01/02/2017 Sleep apnea, unspecified 11/16/2015 [...] on file Legal Sex Male 1:05 PM SPECIAL EQUIPMENT TECHNICIAN Gender Identity Male 02/24/2020 1:23 PM CDT Sexual Orientation Straight 06/19/2019 6: 02 PM SPECIAL EQUIPMENT TECHNICIAN Last Filed Vital Signs Vital Sign Reading [...] cm (5' 10 ) 07/01/2024 10:51 AM SPECIAL EQUIPMENT TECHNICIAN Body Mass Index 47.12 07/01/2024 10:51 AM SPECIAL EQUIPMENT TECHNICIAN Plan of Treatment Not on file Medical Devices Implanted Type Area Edge Runner Device Identifier Shelf Expiration Date Model / [...] ARIA SESSION SUMMARY 09/22/2024 10:54 AM CDT [id number]|2024-11-06 09:04:30|2024-11-06 09:04:30|[email or web address]||||"Procedure Note - Detailed Date of Procedure 11/06/24 Pre-op Diagnosis Urethral stricture Post-op Diagnosis Same Procedure Performed Cystoscopy, urethral dilatation Surgeon Bill Garcia MD Anesthesia General Description of Procedure The patient was brought to the operative suite where he was prepped and draped in a routine sterile fashion while in a dorsal lithotomy position after the uneventful induction of a general LMA anesthetic. Cystoscopy was undertaken with a 19F rigid cystoscope. there was a moderate to markedly constricting urethral stricture. The prostatic urethral estimated length was 1.5cm. The bladder itself was endoscopically normal without foreign body or neoplasm. The bladder mucosa was without hyperemia. There was a single orthotopic ureteral orifice bilaterally with clear efflux of urine. Using the Brigido sounds I dilated the urethra and bladder neck from 16F -> 26F. I placed an 18 F coude catheter to straight drainage The bladder was emptied and the patient was taken to the recovery room in good condition"
--- OUTSIDE RECORDS SUMMARY | 2024-11-05 00:50 | XMS_ITS | Encounter Summary ---
Author Organization [facility] Healthcare Address [address] [place] [address] Care Team Providers Care Die Developer Name Role Phone J Carlos Carmichael MD Primary Care Provider Norma Mccarty MD Unavailable Aleksander Jackson MD Unavailable [phone] Reason for Visit * Reason Comments OTV Encounter Details Date Type Department Care Team (Late st Contact Info) Description 09/25/2024 OTV [facility] Advanced Medicine Radiation Oncology [address] [facility] Advanced Medicine [facility] [address] Chase Farah MD PhD [address] [facility] [address] [place] [address] Social History Tobacco Use Types Packs/Day Years [...] on file Legal Sex Male 1:05 PM SKEIN WINDER Gender Identity Male 02/24/2020 1:23 PM CDT Sexual Orientation Straight 06/19/2019 6: 02 PM SKEIN WINDER documented as of this encounter Last Filed Vital Signs Vital Sign Reading Time Taken Comments Blood Pressure - - Pulse - - Temperature - - Respiratory Rate - - Oxygen Saturation - - Inhaled Oxygen Concentration - - Weight 151 kg (333 lb) 09/25/2024 11:05 AM CDT Height - - Body Mass Index 47.78 07/01/2024 10:51 AM SKEIN WINDER documented in this encounter Progress Notes * Burton Mccoy MD - 09/25/2024 11:05 AM CDT Radiation Oncologist: Norma Mccarty MD Primary Care Physician: J Carlos Carmichael MD Medical Oncologist: Aleksander Jackson MD Surgeon: No care cafeteria team leader to display Date of Service: 09/25/2024 RADIATION [...] (!) 151 kg (333 lb) BMI 47.78 kg/mÂ² Pain Score and Location 09/25/24 1105 PainSc: [...] on filedocumented in this encounter Care Teams Die Developer Relationship Specialty Start Date End Date J Carlos Carmichael MD PCP - General 05/22/17 Norma Mccarty MD [address] [facility] [address] [place] [address] Radiation Oncologist Radiation Oncology 06/16/24 Aleksander Jackson MD [address] [address] Referring Physician Medical Oncology 06/16/24 documented as of this encounter
--- OUTSIDE RECORDS SUMMARY | 2024-11-05 00:50 | XMS_ITS | CONTINUITY OF CARE DOCUMENT ---
Author Name eunice, eunice Address Unknown Organization [facility] Address [address] [place] [address] Phone [phone] Care Team Providers Care Account Administrator Name Role Phone Simone Coreas MD Unavailable [phone] ANTONIO ALVAREZ MD Unavailable ANTONIO ALVAREZ MD Unavailable [phone] PROBLEMS Condition Status Date Provider Notes HTN ESSENTIAL active Simone Coreas MD CHEST PAIN completed - Simone Coreas MD DIABETES MELLITUS active Simone Coreas MD Hypercholesterolemia, mixed active Jhoana Gr uenenfelder OBESITY active Simone Coreas MD Myocardial bridging mid LAD active Simone cardona MD Neurofibromatosis active Simone Coreas MD Chronic venous hypertension with ulcer of LLE active Simone Coreas MD Family History of Hypertension: completed - Oneal Martini Leg edema active Simone Coreas MD Sleep apnea - on CPAP active Simone Coreas MD Family History of Hypertension: completed - Abeba Coreas MD ENCOUNTERS Date Type Provider Location Encounter Diag nosis - In-person encounter Office Visit Simone Coreas MD [facility] [place] [facility] CHEST PAINChronic venous hypertension with ulcer of LLE - In-person encounter Office Visit Simone Coreas MD [facility] [place] [facility] Sleep apnea - on CPAP - In-person encounter Office Visit Simone Coreas MD [facility] [place] [facility] HTN ESSENTIALLeg edemaMyocardial bridging mid LADNeurofibromatosisFamily History of Hypertension: - In-person encounter Office Visit Simone Coreas MD [facility] [place] [facility] Family History of Hypertension:Sleep apnea - on CPAP - In-person encounter Office Visit Simone Coreas MD [facility] [place] [facility] - In-person encounter Office Visit Simone Coreas MD [facility] [place] [facility] - In-person encounter Office Visit Simone Coreas MD [facility] HTN ESSENTIAL - In-person encounter Office Visit Simone Coreas MD [facility] [place] [facility] HTN ESSENTIALCHEST PAINDIABETES MELLITUSHypercholesterolemia, mixedOBESITY VITAL SIGNS Date Observation Value Provider Body Mass Index (Ratio) 47.63 kg/m2 Nima jackson Vini blood pressure, diastolic 80 mm[Hg] Obey polanco Exira blood pressure, systolic 128 mm[Hg] Obeyi [facility] oxygen saturation, oximetry 98 % [facility] pulse rate 67 /min [facility] respiratory rate E&M 18 /min [facility] blood pressure, cuff size regular [facility] weight E&M 332 [lb_av] [facility] E&M 70 [in_i] [facility] Body Mass Index (Ratio) 53.23 kg/m2 Nima [...] blood pressure, cuff size large [facility], diastolic 80 mm[Hg] [facility], systolic 122 mm[Hg] [facility] saturation, oximetry 93 % Jhoana Kya [...] 0-149 3 cholesterol, serum 118 mg/dL [employer] [phone]/11/1 3 calcium, serum 8.9 mg/dL [facility] 8.7-10.2 [...] Estab. 3 platelet count 158 X10E3/UL [employer] [phone]/11/1 3 red blood cell distribution width 13.8 [...] TABLET active ONE TAB. DAILY Ame Trinh SOCIAL HISTORY Date Observation Value Provider social history reviewed E&M i ewed - no changes required Simone Coreas MD exercise type walking Barbara Exira physical exercise, f requency, days per week yes Barbara Ginny caffeine use, averag e drinks per day 1+ Barbara Exira passive cigarette sm stephenie exposure no Barbara Ginny smoking status Never smoker Barbara Ginny social history reviewed E&M aliyah ewed - no changes required Simone Coreas MD exercise type walking [facility] physical exercise, f requency, days per week yes [facility] alcohol counseling no [facility] In the past 3 months , have you been waking up wanting to use drugs? (CAGE substance use question #4) N [facility] In the past 3 months , have you felt guilty or bad about using drugs? (CAGE substance use question #3) N [facility] In the past 3 months , has anyone annoyed you by telling you to cut down or stop using drugs? (CAGE substance use question #2) N [facility] In the past 3 months , have you felt you should cut down or stop using drugs?(CAGE substance use question #1) N [facility] alcohol use, average drinks per day social basis only [facility] alcohol use yes [facility] caffeine use, averag e drinks per day 1+ [facility] drug use no [facility] passive cigarette sm stephenie exposure no [facility] smoking status Never smoker [facility] social history E&M Smoking Histo ry: P [...] never smoker [place] [facility] drug use none Simone Coreas MD physical exercise, f requency, days per week yes [employer] caffeine use, averag e drinks per day yes [employer] alcohol use, average drinks per day [facility] basis [facility] MENTAL STATUS Date Observation Value Provider assessment of judgme nt and insight E&M Alert and oriented to time, place and person. Mood and affect are normal. Belen Yasmine assessment of judgme nt and insight E&M Alert and oriented to time, place and person. Mood and affect are normal. Leon Sawn RN assessment of judgme nt and insight E&M Alert and oriented to time, place and person. Mood and affect are normal. Simone Coreas MD FAMILY HISTORY Family Member Condition Father Family History of Ot her Cancer Father Family History of Hy pertension: INSURANCE PROVIDERS Payer name Policy type / Coverage type [employer] party ID [id number] ADVANCE DIRECTIVES Name Date DISCUSSED - NO [...] care of the wound care clinic at [facility]. He was advised to ask the wound [...] care of the wound care clinic at [facility]. He was advised to ask the wound [...] ulcer C6 : Active venous ulcer [facility] Cardiology:CHOL: 118 (05/06/2018) HDL: 37 (05/06/2018) LDL: 65 (05/06/2018) TRI (05/06/2018) His updated medication list for this problem includes: Simvastatin 20 Mg Oral Tablet (Simvastatin) ..... One tab. daily Simone Coreas MD Cardiology follow up:Now on CPAP . [facility] Cardiology follow up :BP today: 128/80 P rior BP: 122/80 (01/02/2017) His updated medication list for this problem includes: Felodipine Er 10 Mg Oral Tablet Extended Release 24 Hour (Felodipine) ..... One tab daily Atenolol 50 Mg Oral Tablet (Atenolol) ..... Take one pill a day [facility] Cardiology follow up :Orders: V enous Doppler Bilateral LE - Reflux ([id number]) [facility] Follow up [facility] Cardiology Follow up:Exercise an d weight loss advised. [facility]iology Follow up :His updated medication list for this problem includes: Aspirin 81 Mg Tabs (Aspirin) ..... One tab. daily [facility] Cardiology Follow up :His updated medication list for this problem includes: Simvastatin 20 Mg Tabs (Simvastatin) ..... One tab. daily [facility]iology Follow up :BP today: 122/80 P rior BP: 146/86 (11/16/2015) The following medications were removed from the medication list: Lasix 40 Mg Tabs (Furosemide) ..... 1 tab daily H is updated medication list for this problem includes: Felodipine 10 Mg [id number] (Felodipine) ..... One tab daily Atenolol 50 Mg Tabs (Atenolol) ..... Take one pill a day [facility] Cardiology Follow up:Unable to t olerate CPAP. [facility] Follow up:No recurren ce. [facility] Follow up :No chest pain. His updated medication list for this problem includes: Aspirin 81 Mg Tabs (Aspirin) ..... One tab. daily Felodipine 10 Mg [id number] (Felodipine) ..... One tab daily Atenolol 50 Mg Tabs (Atenolol) ..... Take one pill a day [facility] Card[facility] Follow up :He does have leg swelling and discoloration consistent with venous insufficiency however he is not interested in any testing at this time. I recommend support stockings. [facility] Simone Coreas MD Cardiology:His [facility] ed medication list for this problem includes: [...] ..... 1 tab daily Felodipine 10 Mg [id number] (Felodipine) ..... One tab daily Atenolol 50 [...] completed EKG Simone Coreas MD completed SNOMED-CT: [id number] Current Medications Documented Simone Coreas MD completed SNOMED-CT: [id number] Physical Exam, Performed: Pulse Exam of Foot Simone Coreas MD completed EKG Simone Coreas MD completed SNOMED-CT: [id number] Current Medications Documented Simone Coreas MD completed EKG Simone Coreas MD completed EKG Simone Coreas MD completed Lipid Strip Simone Coreas MD completed EKG Simone Coreas MD completed
--- OUTSIDE RECORDS SUMMARY | 2024-11-05 00:50 | XMS_ITS | Encounter Summary ---
Author Organization [facility] Address [address] [place] [address] Care Team Providers Care Head Chopper Name Role Phone J Carlos Carmichael MD Primary Care Provider [phone] Norma Mccarty MD Unavailable Aleksander Jackson MD Unavailable [phone] Reason for Referral * MRI/CAT/PET Scan (Routine) - Pending Review Specialty Diagnoses / Procedures Referred By Contac t Referred To Contact Radiology Diagnoses Prostate cancer (HCC) Procedures MRI PELVIS W WO CONTRAST Bill Garcia MD [address] [address] Phone: tel: fax: [facility] [address] [place] [address] Referral ID Status Reason Start Date Expiration Date V isits Requested Visits Authorized [id number] Pending Review 06/18/2024 07/18/2025 1 1 STAMPER * MRI/CAT/PET Scan (Routine) - Pending Review Specialty Diagnoses / Procedures Referred By Contac t Referred To Contact Radiology Diagnoses Prostate cancer (HCC) Procedures MRI LUMBAR SPINE W WO CONTRAST Bill Garcia MD [address] [place] [address] Phone: tel: fax: [facility] [address] [place] [address] Referral ID Status Reason Start Date Expiration Date V isits Requested Visits Authorized [id number] Pending Review 06/18/2024 07/18/2025 1 1 STAMPER Encounter Details Date Type Department Care Team (Late st Contact Info) Description 06/18/[address] [facility] EpicCare Link Bill Garcia MD [address] [place] [address] Prostate cancer (HCC) (Primary Dx) Social History Tobacco Use Types Packs/Day Years Used Date Smoking Tobacco: Never Passive Smoke Exposure: Never Smokeless Tobacco: Never Alcohol Use Standard Drinks/Week Comments Not Currently 0 (1 standard drink = 0.6 oz pur e alcohol) Sex and Gender Information Value Date Recorded Sex Assigned at Not on file Legal Sex Male 1:05 PM HAND STAMPER Gender Identity Male 02/24/2020 1:23 PM CDT Sexual Orientation Straight 06/19/2019 6: 02 PM HAND STAMPER documented as of this encounter Plan of [...] prostate documented in this encounter Care Teams Head Chopper Relationship Specialty Start Date End Date J Carlos Carmichael MD PCP - General 05/22/17 Norma Mccarty MD [address] [facility] [address] [place] [address] Radiation Oncologist Radiation Oncology 06/16/24 Aleksander Jackson MD [address] [facility] [address] [address] Referring Physician Medical Oncology 06/16/24 documented as of this encounter
--- NOTE | 2024-11-05 06:23 | P.HPUP_ITS ---
History and Physical Update Update Date/Time: 11/05/24 06:23 History and Physical has been reviewed, including an updated exam of the patient. There are NO changes in the patient's condition. Risks, benefits, and alternatives have been discussed and questions answered. Patient agrees to proceed with procedure.
--- NOTE | 2024-11-05 14:12 | P.PNAN_ITS ---
Anes - Initial Pre Proc Eval Procedure: Operation Date: 11/05/24 14:45 Proposed Procedures p Cystoscopy, Urethral Dilatation - Bill Garcia MD Date/Time: 11/05/24 14:12 Surgeon: Bill Garcia MD Pre Op Diagnosis: bladder retention Patient Data Age: 63 Gender: M Height: 1.78 m Weight: 149.4 kg Last Vital Signs Temp 36.2 C L 11/05/24 12:55 Pulse 55 L 11/05/24 12:55 Resp 18 11/05/24 12:55 BP 143/71 H 11/05/24 12:55 Pulse Ox 99 11/05/24 12:55 O2 Del Method Room Air 11/05/24 12:55 Allergies Allergy/AdvReac Type Severity Reaction Status Date / Time No Known Allergies Allergy Verified 10/27/24 15:42 Home Medications Medication Instructions Recorded Confirmed Type allopurinol 300 mg tablet 300 mg PO DAILY 08/03/19 10/27/24 History aspirin 81 mg tablet,delayed 81 mg PO DAILY 08/03/19 10/27/24 History release atenolol 50 mg tablet 50 mg PO DAILY 08/03/19 10/27/24 History calcium carbonate (Calcium 600) 600 mg PO DAILY 08/03/19 10/27/24 History felodipine 10 mg tablet,extended 10 mg PO HS 08/03/19 10/27/24 History release 24 hr finasteride 1 mg tablet 1 mg PO DAILY 08/03/19 10/27/24 History lidocaine 5 % topical patch 1 patch transdermal DIRECTED 08/03/19 10/27/24 History PRN Pain pregabalin 100 mg capsule (Lyrica) 200 mg PO BID 08/03/19 10/27/24 History simvastatin 20 mg tablet 20 mg PO DAILY 08/03/19 10/27/24 History tamsulosin 0.4 mg capsule 0.4 mg PO HS 08/03/19 10/27/24 History naldemedine 0.2 mg tablet 0.2 mg PO HS 05/14/23 10/27/24 History (Symproic) oxycodone 5 mg tablet 5 mg PO DAILY PRN Pain 05/14/23 10/27/24 History oxycodone myristate 13.5 mg 13.5 mg PO BID 05/14/23 10/27/24 History capsule sprinkle extend release 12hr(DON'T CRUSH) (Xtampza ER) multivitamin with minerals-folic 1 tablet PO DAILY 02/18/24 10/27/24 History acid 0.4 mg tablet semaglutide 1 mg/dose (4 mg/3 mL) 1 mg subcut WEEKLY 02/18/24 10/27/24 History subcutaneous pen injector (Ozempic) abiraterone 250 mg tablet 1,000 mg PO DAILY 10/27/24 10/27/24 History prednisone 5 mg tablet 5 mg PO BID 10/27/24 10/27/24 History Patient hx anesthesia problems: none Family hx anesthesia problems: none Results Review: All pre-operative results and documents have been reviewed as part of the pre- operative evaluation. [facility] Past Medical History Medical History Chronic, continuous use of opioids Neurofibromatosis, type 1 Hyperlipidemia CINDY (obstructive sleep apnea) Hypertension Morbid obesity Social History Social History Smoking status: Never smoker Alcohol intake: never Substance use: never Substance use type: does not use Living arrangements: with family Spiritual care concerns: No Anes - Eval Final PreProcedure Day of Procedure 11/05/24 14:12 Patient weight: morbidly obese Heart: regular rate and rhythm Lungs: clear to auscultation Airway: Mallampati scale class II Neurological: alert and oriented Last oral intake: >/= 8 hours ASA classification: III Emergent: no Anesthetic plan: proceed Anesthesia type and monitoring: general LMA and standard monitoring Results Review: All pre-operative results and documents have been reviewed as part of the pre- operative evaluation. Informed Consent: The patient's anesthetic plan and its attendant risks and benefits were discussed with the patient/family/POA. Questions were solicited and answers provided to the satisfaction of the patient/family/POA.
[2024-11-05] MEDS: ceFAZolin 3 GM/D5W 100 ML 100 ML IVPB (15:25)
[2024-11-05] MEDS: LIDOCAINE 2% GEL UROJET 10 ML PKG MUCOUS MEM (15:39)
[2024-11-05] MEDS: LACTATED RINGERS 1,000 ML 30 ML IV CONT (15:51)
[2024-11-05] MEDS: fentaNYL CITRATE INJ (*CRX) 100 MCG/2 ML VIAL 25 MCG IV PUSH ×4 (16:00→16:29)
--- NOTE | 2024-11-05 17:25 | SUR.PHASEII ---
PATIENT GIVEN LEG BAG. THIS RN REVIEWED GENERAL DISCHARGE INSTRUCTIONS WITH PATIENT; DR. HOLT REVIEWED SPECIFIC INSTRUCTIONS RE: FOLLOW-UP ON THE PHONE.
--- NOTE | 2024-11-06 09:04 | P.OP_ITS ---
Procedure Note - Detailed Date of Procedure 11/06/24 Pre-op Diagnosis Urethral stricture Post-op Diagnosis Same Procedure Performed Cystoscopy, urethral dilatation Surgeon Bill Garcia MD Anesthesia General Description of Procedure The patient was brought to the operative suite where he was prepped and draped in a routine sterile fashion while in a dorsal lithotomy position after the uneventful induction of a general LMA anesthetic. Cystoscopy was undertaken with a 19F rigid cystoscope. there was a moderate to markedly constricting urethral stricture. The prostatic urethral estimated length was 1.5cm. The bladder itself was endoscopically normal without foreign body or neoplasm. The bladder mucosa was without hyperemia. There was a single orthotopic ureteral orifice bilaterally with clear efflux of urine. Using the Brigido sounds I dilated the urethra and bladder neck from 16F -> 26F. I placed an 18 F coude catheter to straight drainage The bladder was emptied and the patient was taken to the recovery room in good condition
== END 2024-11-05 17:10 | disposition home or self-care (01) ==
PROVIDERS: PCP Internal Medicine; Visit Provider Urology
PROC: 0T7D8ZZ Dilation of Urethra, Via Natural or Artificial Opening Endoscopic (ICD-10-PCS; CPT 52281; principal; 2024-11-05 14:45)
DX: N35.912 Unspecified bulbous urethral stricture, male (principal); R33.9 Retention of urine, unspecified; C61 Malignant neoplasm of prostate; E78.5 Hyperlipidemia, unspecified; I10 Essential (primary) hypertension; G47.33 Obstructive sleep apnea (adult) (pediatric); Q85.01 Neurofibromatosis, type 1; E66.01 Morbid (severe) obesity due to excess calories; Z68.42 Body mass index [BMI] 45.0-49.9, adult; Z79.82 Long term (current) use of aspirin; Z79.891 Long term (current) use of opiate analgesic; Z79.85 Long-term (current) use of injectable non-insulin antidiabetic drugs; Z79.52 Long term (current) use of systemic steroids
CPT/HCPCS: 52281; J0690; J1100; J2003; J2250; J2405; J2704; J3010; J7120